=== PATIENT | male | born 1960 | race African-American/Black ===

== ENCOUNTER 2016-05-12 00:33 | Observation (INO) | payer OTHER ==
[2016-05-12] VITALS (7 sets, daily range): BP systolic 102–142; BP diastolic 54–80
[~2016-05-12] VITALS: Ht 182.9 cm; Wt 105.6 kg
[~2016-05-12 00:33] MED LIST: AMLO10TA2 PO; CHLO25TA22 PO; POTA20TA8 PO
[2016-05-12] MEDS ORDERED: CLON0.1T PO ×2 (00:52)
[2016-05-12] MEDS ORDERED: LORA10TA7 PO ×2 (00:52)
[2016-05-12] MEDS ORDERED: AMLO10TA4 PO ×2 (00:55)
[2016-05-12] MEDS ORDERED: LISI40TA PO ×2 (00:55)
[2016-05-12] MEDS ORDERED: ATEN25TA (00:55)
[2016-05-12] MEDS ORDERED: CHLO25TA22 PO ×2 (00:55)
[2016-05-12 01:10] LABS: BASOPHILS % (AUTO) 0 % (0-10); EOSINOPHILS % (AUTO) 1 % (0-10); LYMPHOCYTES # (AUTO) 2.6 X 10^3 (1.0-4.0); LYMPHOCYTES % (AUTO) 43 % (12-44); MEAN CORPUSCULAR HEMOGLOBIN 34 PG (25-34); MEAN CORPUSCULAR HGB CONC 38 G/DL (32-36); MEAN CORPUSCULAR VOLUME 89 FL (80-99); MONOCYTES # (AUTO) 0.5 X 10^3 (0.0-1.0); MONOCYTES % (AUTO) 9 % (0-12); NEUTROPHILS # (AUTO) 2.8 X 10^3 (1.8-7.8); NEUTROPHILS % (AUTO) 47 % (42-75); PLATELET COUNT 365 10^3/uL (130-400); RED BLOOD COUNT 4.03 10^6/uL (4.35-5.85); RED CELL DISTRIBUTION WIDTH 12.9 % (10.0-14.5); WHITE BLOOD COUNT 5.9 10^3/uL (4.3-11.0)
[2016-05-12 01:17] LABS: PROTHROMBIN TIME PATIENT 13.3 SEC (12.2-14.7)
[2016-05-12 01:28] LABS: ALANINE AMINOTRANSFERASE 8 U/L (0-55); ALBUMIN 3.7 G/DL (3.2-4.5); ANION GAP 13 MMOL/L (5-14); ASPARTATE AMINO TRANSFERASE 15 U/L (5-34); BILIRUBIN,TOTAL 0.3 MG/DL (0.1-1.0); BLOOD UREA NITROGEN 18 MG/DL (7-18); BUN/CREATININE RATIO 12; CALCIUM 8.9 MG/DL (8.5-10.1); CARBON DIOXIDE 23 MMOL/L (21-32); CHLORIDE 104 MMOL/L (98-107); CREATININE SERUM 1.46 MG/DL (0.60-1.30); GFR ESTIMATED > 60; GLUCOSE 101 MG/DL (70-105); MAGNESIUM 2.2 MG/DL (1.8-2.4); POTASSIUM 3.3 MMOL/L (3.6-5.0); SODIUM 140 MMOL/L (135-145); TOTAL PROTEIN 7.6 G/DL (6.4-8.2)
[2016-05-12 01:35] LABS: MYOGLOBIN SERUM 59.8 NG/ML (10.0-92.0)
[2016-05-12] MEDS ORDERED: CLOPIDOGREL 75 MG (PLAVIX) TABLET PO ONE (02:30)
[2016-05-12] MEDS ORDERED: ENOXAPARIN 100 MG/1 ML (LOVENOX) SYR SC ONE (02:30)
[2016-05-12] MEDS ORDERED: NS IV 1000 ML 1,000 ML IV ONE (02:57)
[2016-05-12] MEDS ORDERED: KETOROLAC 30 MG/ML VIAL IVP ONE (03:00)
[2016-05-12] MEDS ORDERED: KCL 10 MEQ TAB (MICRO K) PO ONE (03:15)
--- NOTE | 2016-05-12 03:19 | ED Chest Pain ---
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 EMS reported ST changes on the EKG and nitroglycerin paste was applied. Patient reports this improved his pain. He denies any obvious alleviating or exacerbating factors. He is a patient of Dr. Riley who he has seen for history of severe hypertension. He reports Dr. Riley as previously mentioned performing a heart catheterization as part of his workup. Allergies and Home Medications Allergies Coded Allergies: No Known Drug Allergies (Unverified , 01/16/16) Home Medications Amlodipine Besylate 10 Mg Tablet, 10 MG PO DAILY, (Reported) Atenolol 25 Mg Tablet, #30 (Reported) Chlorthalidone 25 Mg Tablet, 25 MG PO, (Reported) Clonidine HCl 0.1 Mg Tablet, #30 (Reported) Lisinopril 40 Mg Tablet, 40 MG PO DAILY, (Reported) Loratadine 10 Mg Tablet, #30 (Reported) Review of Systems Constitutional: no symptoms reported EENTM: No Symptoms Reported Respiratory: No Symptoms Reported Cardiovascular: See HPI Gastrointestinal: No Symptoms Reported Genitourinary: No Symptoms Reported Musculoskeletal: no symptoms reported Skin: no symptoms reported Psychiatric/Neurological: No Symptoms Reported Endocrine: No Symptoms Reported Past Jibzqhv-Bfrblp-Yrogrt Hx Patient Social History Alcohol Use: Regular Use Recreational Drug Use: No Smoking Status: Current Everyday Smoker Type Used: Cigarettes 2nd Hand Smoke Exposure: No Recent Foreign Travel: No Contact w/Someone Who Travel: No Recent Infectious Disease Expo: No Recent Hopitalizations: No Seasonal Allergies Seasonal Allergies: Yes Surgeries HX Surgeries: No Respiratory Hx Respiratory Disorders: Yes Respiratory Disorders: Pneumonia Cardiovascular Hx Cardiac Disorders: Yes Cardiac Disorders: Hypertension Neurological Hx Neurological Disorders: No Reproductive System Hx Reproductive Disorders: No Sexually Transmitted Disease: No HIV/AIDS: No Genitourinary Hx Genitourinary Disorders: No Gastrointestinal Hx Gastrointestinal Disorders: Yes Gastrointestinal Disorders: Gastroesophageal Reflux Musculoskeletal Hx Musculoskeletal Disorders: No Endocrine Hx Endocrine Disorders: No HEENT HX ENT Disorders: No Cancer Hx Cancer: No Psychosocial Hx Psychiatric Problems: No Integumentary HX Skin/Integumentary Disorder: No Blood Transfusions Hx Blood Disorders: No Family Medical History Significant Family History: Heart Disease, Hypertension Physical Exam Vital Signs Vital Sign - Last 12Hours Capillary Refill : Less Than 3 Seconds General Appearance: No Apparent Distress, WD/WN HEENT: PERRL/EOMI, Normal ENT Inspection, Pharynx Normal Neck: Normal Inspection Respiratory: Chest Non Tender, Lungs Clear, Normal Breath Sounds, No Accessory Muscle Use, No Respiratory Distress Cardiovascular: Regular Rate, Rhythm, No Edema, Normal Peripheral Pulses Gastrointestinal: Normal Bowel Sounds, Non Tender, Soft Extremity: Normal Inspection, No Pedal Edema, Calf Tenderness (right calf) Neurologic/Psychiatric: Alert, Oriented x3, No Motor/Sensory Deficits, Normal Mood/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, 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 Skin: Normal Color, Warm/Dry Progress/Results/Core Measures Results/Orders Lab Results Laboratory Tests Test 05/12/16 01:00 Range/Units White Blood Count 5.9 4.3-11.0 10^3/uL Red Blood Count 4.03 L 4.35-5.85 10^6/uL Hemoglobin 13.7 13.3-17.7 G/DL Hematocrit 36 L 40-54 % Mean Corpuscular Volume 89 80-99 FL Mean Corpuscular Hemoglobin 34 25-34 PG Mean Corpuscular Hemoglobin Concent 38 H 32-36 G/DL Red Cell Distribution Width 12.9 10.0-14.5 % Platelet Count 365 130-400 10^3/uL Mean Platelet Volume 9.0 7.4-10.4 FL Neutrophils (%) (Auto) 47 42-75 % Lymphocytes (%) (Auto) 43 12-44 % Monocytes (%) (Auto) 9 0-12 % Eosinophils (%) (Auto) 1 0-10 % Basophils (%) (Auto) 0 0-10 % Neutrophils # (Auto) 2.8 1.8-7.8 X 10^3 Lymphocytes # (Auto) 2.6 1.0-4.0 X 10^3 Monocytes # (Auto) 0.5 0.0-1.0 X 10^3 Eosinophils # (Auto) 0.0 0.0-0.3 10^3/uL Basophils # (Auto) 0.0 0.0-0.1 10^3/uL Prothrombin Time 13.3 12.2-14.7 SEC INR Comment 1.0 0.8-1.4 Activated Partial Thromboplast Time 26 24-35 SEC D-Dimer 1.54 H 0.00-0.49 UG/ML Sodium Level 140 135-145 MMOL/L Potassium Level 3.3 L 3.6-5.0 MMOL/L Chloride Level 104 98-107 MMOL/L Carbon Dioxide Level 23 21-32 MMOL/L Anion Gap 13 5-14 MMOL/L Blood Urea Nitrogen 18 7-18 MG/DL Creatinine 1.46 H 0.60-1.30 MG/DL Estimat Glomerular Filtration Rate > 60 BUN/Creatinine Ratio 12 Glucose Level 101 70-105 MG/DL Calcium Level 8.9 8.5-10.1 MG/DL Magnesium Level 2.2 1.8-2.4 MG/DL Total Bilirubin 0.3 0.1-1.0 MG/DL Aspartate Amino Transf (AST/SGOT) 15 5-34 U/L Alanine Aminotransferase (ALT/SGPT) 8 0-55 U/L Alkaline Phosphatase 74 40-136 U/L Myoglobin 59.8 10.0-92.0 NG/ML Troponin I < 0.30 <0.30 NG/ML Total Protein 7.6 6.4-8.2 G/DL Albumin 3.7 3.2-4.5 G/DL My Orders Orders - KALI DAVIS MD Cbc With Automated Diff (05/12/16 00:43) Magnesium (05/12/16 00:43) Chest 1 View, Ap/Pa Only (05/12/16 00:43) Ekg Tracing (05/12/16 00:43) Cardiac Profile 1 (05/12/16 00:43) Comprehensive Metabolic Panel (05/12/16 00:43) Myoglobin Serum (05/12/16 00:43) Protime With Inr (05/12/16 00:43) Partial Thromboplastin Time (05/12/16 00:43) O2 (05/12/16 00:43) Monitor-Rhythm Ecg Trace Only (05/12/16 00:43) Lipid Panel (05/13/16 06:00) Saline Lock/Iv-Start (05/12/16 00:43) Fibrin Degradation Products (05/12/16 02:29) Clopidogrel Tablet (Plavix Tablet) (05/12/16 02:30) Enoxaparin Injection (Lovenox Injection) (05/12/16 02:30) Ketorolac Injection (Toradol Injection) (05/12/16 03:00) Ns Iv 1000 Ml (Sodium Chloride 0.9%) (05/12/16 02:57) Potassium Chloride (Tablet) (Klor Con Ta (05/12/16 03:15) Medications Given in ED Current Medications Medications Dose Ordered Sig/Milton Route Start Time Stop Time Status Last Admin Dose Admin Clopidogrel Bisulfate 150 mg ONCE ONCE PO 05/12/16 02:30 05/12/16 02:31 DC 05/12/16 02:53 150 MG Enoxaparin Sodium 100 mg ONCE ONCE SC 05/12/16 02:30 05/12/16 02:31 DC 05/12/16 02:53 100 MG Ketorolac Tromethamine 30 mg ONCE ONCE IVP 05/12/16 03:00 05/12/16 03:01 DC 05/12/16 03:04 30 MG Sodium Chloride 1,000 ml @ 0 mls/hr Q0M ONCE IV 05/12/16 02:57 05/12/16 02:58 DC 05/12/16 03:04 0 MLS/HR Vital Signs/I&O Vital Sign - Last 12Hours 05/12/16 05/12/16 00:35 00:35 Temp 98.4 Pulse 57 Resp 16 B/P (MAP) 121/84 Pulse Ox 97 98 O2 Delivery Nasal Cannula Nasal Cannula O2 Flow Rate 2.00 2.00 Blood Pressure Mean: 96 Progress Note : Progress Note Case was reviewed with Dr. Riley who recommended administering Lovenox and Plavix in addition to the aspirin. EKG was obtained and reviewed by him. Tenderness was found in the right calf and d-dimer was therefore ordered. D- dimer was elevated and CT angiogram was ordered prior to transfer to the floor. Results of the CT angiogram were not known at the time of transfer to the floor but patient had already received the Lovenox. Patient had minimal intermittent chest pain during his ER stay. ECG Initial ECG Impression Date: May 12, 2016 Initial ECG Impression Time: 00:40 Initial ECG Rate: 53 Initial ECG Rhythm: Normal Sinus Comment Sinus rhythm with no ST elevation. Borderline ST depression in multiple leads. T-wave inversion in multiple leads. LVH with secondary repolarization abnormality. Diagnostic Imaging Diagonstic Imaging: Xray Plain Films/CT/US/NM/MRI: chest Comments Chest x-ray viewed by me. Report not available. No acute abnormalities appreciated by your physician. Departure Communication Communication Dr. Zafar Communication/Consulting Dr. Riley Impression Impression: Primary Impression: Chest pain Qualified Codes: R07.9 - Chest pain, unspecified Disposition: ADMITTED INPATIENT Condition: Improved Decision to Admit Reason: Admit from ER (General) Decision to Admit/Date: May 12, 2016 Time/Decision to Admit Time: 00:53 Departure-Patient Inst. Referrals: [facility] (PCP) Primary Care Physician KALI DAVIS MD May 12, 2016 03:19
[2016-05-12] MEDS ORDERED: NS 100 ML (IVPB) BAG IV ONE (04:00)
[2016-05-12] MEDS ORDERED: IOHEXOL 350 MG/ML 150 ML (OMNIPAQUE 350) VIAL IV ONE (04:00)
[2016-05-12] MEDS ORDERED: PATIENT MAY USE OWN MEDS, ALL PO SCH (04:45)
[2016-05-12] MEDS ORDERED: PATIENT MAY USE OWN MEDS, ALL MC SCH (04:45)
[2016-05-12] MEDS ORDERED: PANTOPRAZOLE 40 MG (PROTONIX) TAB PO ONE (05:00)
[2016-05-12] MEDS ORDERED: IBUPROFEN 600 MG (MOTRIN) TAB PO PRN (05:15)
[2016-05-12] MEDS ORDERED: CATHETER FLUSH 10 ML SYR IV PRN (05:15)
[2016-05-12] MEDS ORDERED: morphine INJ 4 MG/ML 1 ML (VIAL/SYRINGE) IV PRN (05:15)
[2016-05-12] MEDS ORDERED: NITROGLYCERIN SUBLINGUAL 0.4 MG TAB (NITROSTAT) SL PRN (05:15)
[2016-05-12] MEDS ORDERED: ATEN50TA PO ×2 (05:22)
[2016-05-12] MEDS ORDERED: CATHETER FLUSH 10 ML SYR IV SCH (06:00)
[2016-05-12] MEDS ORDERED: PANTOPRAZOLE 40 MG (PROTONIX) TAB PO SCH (07:00)
[2016-05-12] MEDS ORDERED: CHLORTHALIDONE 25 MG (HYGROTON) TABLET PO SCH ×2 (07:00→09:00)
--- NOTE | 2016-05-12 07:37 | Diagnostic Imaging Report ---
PROCEDURE: CT angiography of the chest with contrast. TECHNIQUE: Multiple contiguous axial images were obtained through the chest after uneventful bolus administration of intravenous contrast. Reconstructed CTA MIP acquisitions were also performed. INDICATION: Acute onset chest pain. FINDINGS: Portions of this exam are degraded due to respiratory motion. The thoracic aorta is normal in caliber without evidence of dissection. No definitive filling defects are seen within the pulmonary arteries to suggest pulmonary embolism. There are no discrete pulmonary nodules, masses or infiltrates. There is no pleural or pericardial fluid. There is no pneumothorax. There is no pathologically enlarged adenopathy in the chest. The visualized intra-abdominal structures are unremarkable. There are mild degenerative changes in the spine. IMPRESSION: Portions of the exam are mildly degraded due to motion. Peripheral embolism in these regions cannot be entirely excluded. There is, however, no evidence of a large central filling defect to suggest pulmonary embolism. No evidence of dissection. No acute abnormality in the chest Dictated by: Dictated on workstation # [id number]
[2016-05-12 08:05] LABS: ANION GAP 9 MMOL/L (5-14); BLOOD UREA NITROGEN 19 MG/DL (7-18); BUN/CREATININE RATIO 12; CALCIUM 8.4 MG/DL (8.5-10.1); CARBON DIOXIDE 24 MMOL/L (21-32); CHLORIDE 107 MMOL/L (98-107); CHOLESTEROL 128 MG/DL (< 200); CREATININE SERUM 1.58 MG/DL (0.60-1.30); DIRECT LDL 74 MG/DL (1-129); GFR ESTIMATED 56; GLUCOSE 98 MG/DL (70-105); POTASSIUM 3.7 MMOL/L (3.6-5.0); SODIUM 140 MMOL/L (135-145); TRIGLYCERIDES 231 MG/DL (<150); VLDL CHOLESTEROL 46 MG/DL (5-40)
[2016-05-12 08:11] LABS: TROPONIN I < 0.30 NG/ML (<0.30)
--- NOTE | 2016-05-12 08:41 | Diagnostic Imaging Report ---
INDICATION: Chest pain. COMPARISON: January 17, 2016. TECHNIQUE: Single frontal radiograph of the chest dated May 12, 2016. FINDINGS: The cardiac silhouette is within normal limits. No significant pulmonary vascular congestion. The lungs are clear. No pleural effusion. No pneumothorax. No acute osseous abnormality. IMPRESSION: No acute cardiopulmonary abnormality. Dictated by: Dictated on workstation # [id number]
[2016-05-12] MEDS ORDERED: ATENOLOL 50 MG (TENORMIN) TAB PO SCH ×2 (09:00)
[2016-05-12] MEDS ORDERED: amLODIPine 10 MG (NORVASC) TAB PO SCH ×2 (09:00)
[2016-05-12] MEDS ORDERED: ASPIRIN E.C. 325 MG (ECOTRIN) TABLET PO SCH (09:00)
[2016-05-12] MEDS ORDERED: LISINOPRIL 40MG TABLET PO SCH (09:00)
[2016-05-12] MEDS ORDERED: NON-FORMULARY MEDICATION 1 EA EA (Lisinopril 40 MG) PO SCH (09:00)
--- NOTE | 2016-05-12 11:02 | Diagnostic Imaging Report ---
PROCEDURE: US right lower extremity venous. TECHNIQUE: Multiple real-time grayscale images were obtained over the right lower extremity in various projections. Additional duplex Doppler and color Doppler images were also obtained. INDICATION: Right leg pain and elevated d-dimer. FINDINGS: The right common femoral, superficial femoral and popliteal veins demonstrate normal response to compression, augmentation, and Valsalva. There are no right lower extremity fluid collections or masses. IMPRESSION: No evidence of deep vein thrombosis in the right lower extremity. Dictated by: Dictated on workstation # [id number]
--- NOTE | 2016-05-12 13:35 | Consultation-Cardiology ---
HPI-Cardiology Cardiology Consultation: Date of Consultation 05/12/16 Date of Admission Attending Physician Anaid Zafar MD Admitting Physician O[place],[facility] Consulting Physician Rehan MONTAÑO MD HPI: Chief Complaint: chest pain this is a 55-year-old gentleman with history of hypertension, active smoking, premature family history of coronary artery disease. He presents with complaint of substernal chest pain which he describes as chest tightness for 15 minutes. No radiation. No associated shortness of breath. No exacerbating or relieving factors. Significant improvement with Nitropaste. Review of Systems-Cardiology Review of Systems Constitutional: No As described under HPI, No no symptoms reported, No chills, No fever, No lightheadedness, No malaise, No tiredness, No weight loss, No weight gain, No other Eyes: No As described under HPI, No no symptoms reported, No blindness, No blurred vision, No contact lenses, No drainage, No decreased acuity, No foreign body sensation, No glasses, No inflammation, No pain, No photophobia, No previous injury, No shadows, No tunnel vision, No other, No vision change Ears/Nose/Throat: No As described under HPI, No no symptoms reported, No chronic hearing loss, No epistaxis, No ear discharge, No ear pain, No loose teeth, No mouth pain, No mouth swelling, No nasal drainage, No nose pain, No recent hearing loss, No throat pain, No throat swelling, No ulcerations, No other Respiratory: No no symptoms reported, No As described under HPI, No cough, No orthopnea, No shortness of breath, No SOB with excertion, No SOB at rest, No stridor, No wheezing, No other Cardiovascular: No no symptoms reported, No As described under HPI, chest pain , No edema, No irregular heart rate, No lightheadedness, No palpitations, No syncope, No other Gastrointestinal: No no symptoms reported, No As described under HPI, No abdomen distended, No abdominal pain, No blood streaked bowels, No constipation , No diarrhea, No difficulty swallowing, No nausea, No poor appetite, No poor fluid intake, No rectal bleeding, No vomiting, No other, No nausea/vomiting/ diarrhea, No stool coloration changes Genitourinary: No no symptoms reported, No As described under HPI, No burning, No dysuria, No discharge, No frequency, No flank pain, No hematuria, No incontinence, No pain, No urgency, No other, No urine frequency changes, No urine coloration changes Musculoskeletal: No no symptoms reported, No As describe under HPI, No back pain, No gout, No joint pain, No joint swelling, No muscle pain, No muscle stiffness, No neck pain, No other Skin: No no symptoms reported, No As described under HPI, No change in color, No change in hair/nails, No dryness, No lesions, No lumps, No rash, No other, No skin related problems, No ulcerations, No rash on exposed areas, No ulcerations on exposed areas Psychiatric/Neurological: No As described under HPI, No anxiety, No depression , No emotional problems, No focal weakness, No headache, No no symptoms reported , No numbness, No other, No pre-existing deficit, No seizure, No syncope, No tingling, No tremors, No weakness QAN-Isajby-Urgyzn Hx Patient Social History Alcohol Use: Occasionally Uses Recreational Drug Use: No Smoking Status: Current Everyday Smoker Type Used: Cigarettes 2nd Hand Smoke Exposure: No Recent Foreign Travel: No Recent Infectious Disease Expo: No Hospitalization with Isolation: Denies Physical Abuse Screen: No Sexual Abuse: No Past Medical History PMH As described under Assessment. Family Medical History Family History: Alcoholism 19 FATHER G8 BROTHER Diabetes mellitus 19 MOTHER G8 BROTHER FH: liver disease 19 FATHER G8 BROTHER G8 BROTHER Hypertension 19 MOTHER G8 SISTER Myocardial infarction 19 FATHER Allergies and Home Medications Allergies Coded Allergies: No Known Drug Allergies (Unverified , 01/16/16) Home Medications Amlodipine Besylate 10 Mg Tablet, 10 MG PO DAILY, (Reported) Atenolol 50 Mg Tablet, 50 MG PO BID, (Reported) Chlorthalidone 25 Mg Tablet, 25 MG PO, (Reported) Clonidine HCl 0.1 Mg Tablet, #30 (Reported) Lisinopril 40 Mg Tablet, 40 MG PO DAILY, (Reported) Loratadine 10 Mg Tablet, #30 (Reported) Physical Exam-Cardiology Physical Exam Vital Signs/I&O Vital Sign - Last 12Hours 05/12/16 05/12/16 05/12/16 05/12/16 03:30 03:58 04:11 04:15 Pulse 47 59 51 Resp 17 B/P (MAP) 120/80 116/68 Pulse Ox 98 96 O2 Delivery Room Air O2 Flow Rate 2.00 05/12/16 05/12/16 05/12/16 05/12/16 04:45 05:00 06:00 07:00 Pulse 53 50 54 B/P (MAP) 102/54 111/68 Pulse Ox 96 95 97 O2 Delivery Room Air Room Air Room Air 05/12/16 05/12/16 05/12/16 05/12/16 07:00 07:55 07:55 07:55 Temp 96.8 Pulse 53 54 Resp 16 B/P (MAP) 126/80 120/73 Pulse Ox 92 98 98 98 O2 Delivery Room Air Room Air Room Air 05/12/16 05/12/16 11:13 11:15 Temp 97.1 Pulse 55 Resp 12 B/P (MAP) 142/78 Pulse Ox 99 99 O2 Delivery Room Air Capillary Refill : Less Than 3 Seconds Constitutional: No appears stated age, No AAO x 3, No apparent distress, No PERRL, No well-developed, No well-nourished, No other HEENT: No PERRL, No normal ENT inspection, No TMs normal, No pharynx normal, No scleral icterus (R), No scleral icterus (L), No pale conjunctivae (R), No pale conjunctivae (L), No photophobia, No TM abnormal (R), No TM abnormal (L), No pharyngeal erythema, No tonsillar exudate, No other, No discharge, No EOMI, No hearing is well preserved, No hard of hearing, No oral hygience is good, No ulceration, No xanthelasmas are seen Neck: No non-tender, No full range of motion, No supple, No normal inspection, No carotid bruit, No limited range of motion, No lymphadenopathy (R), No lymphadenopathy (L), No tender lateral, No tender midline, No thyromegaly, No other, No carotid pulses are 2 + bilaterally, No with good upstrokes Respiratory: No accessory muscle use, No respiratory distress, No chest tender , No chest expansion is symmetric, No chest is bilaterally symmetric, No lungs clear to percussion, No lungs clear to auscultation, No crackles, No rhonchi, No rales, No stridor, No wheezing, No pleural rub, No other Cardiovascular: No regular rate-rhythm, No irregularly irregular, No extra beats, No parasternal heave is noted, No JVD, No edema, No bradycardia, No tachycardia, No point of maximal impulse, No cardiac thrills are palpable, No S1 and S2, No gallop/S3, No gallop/S4, No diastolic murmur, No systolic murmur, No friction rub, No click, No other Gastrointestinal: No tender, No soft, No round, No distended, No pulsatile mass , No organomegaly, No guarding, No rebound, No tenderness, No hernia, No mass, No audible bowel sounds, No abnormal bowel sounds, No abdominal bruits, No spleenomegaly, No other Rectal: deferred Extremities: No normal range of motion, No non-tender, No normal inspection, No pedal edema, No calf tenderness, No normal capillary refill, No pelvis stable , No calf tenderness, No inflammation, No pedal edema, No slow capillary refill , No swelling, No other, No abrasion, No clubbing, No cyanosis, No ecchymosis, No laceration, No no lower extremity edema bilateral, No significant edema, No tenderness, No wound Neurologic/Psychiatric: No blood bank coordinator II-XII nml as tested, No no motor/sensory deficits, No alert, No normal mood/affect, No oriented x 3, No abnormal cerebellar tests, No abnormal blood bank coordinator II-XII, No abnormal gait, No aphasia, No EOM palsy, No facial droop, No motor weakness, No sensory deficit, No depressed affect, No disoriented x 3, No other, No grossly intact, No power is 5/5 both on sides Skin: No normal color, No warm/dry, No cyanosis, No cool, No diaphoresis, No damp, No ecchymosis, No jaundice, No mottled, No pallor, No rash, No tattoos/ piercings, No ulcerations, No rash on exposed areas, No ulcerations on exposed areas, No other Data Review Labs Laboratory Tests 05/12/16 01:00: White Blood Count 5.9, Red Blood Count 4.03L, Hemoglobin 13.7, Hematocrit 36L, Mean Corpuscular Volume 89, Mean Corpuscular Hemoglobin 34, Mean Corpuscular Hemoglobin Concent 38H, Red Cell Distribution Width 12.9, Platelet Count 365, Mean Platelet Volume 9.0, Neutrophils (%) (Auto) 47, Lymphocytes (%) (Auto) 43, Monocytes (%) (Auto) 9, Eosinophils (%) (Auto) 1, Basophils (%) (Auto) 0, Neutrophils # (Auto) 2.8, Lymphocytes # (Auto) 2.6, Monocytes # (Auto) 0.5, Eosinophils # (Auto) 0.0, Basophils # (Auto) 0.0, Prothrombin Time 13.3, INR Comment 1.0, Activated Partial Thromboplast Time 26, D-Dimer 1.54H, Sodium Level 140, Potassium Level 3.3L, Chloride Level 104, Carbon Dioxide Level 23, Anion Gap 13, Blood Urea Nitrogen 18, Creatinine 1.46H, Estimat Glomerular Filtration Rate > 60, BUN/Creatinine Ratio 12, Glucose Level 101, Calcium Level 8.9, Magnesium Level 2.2, Total Bilirubin 0.3, Aspartate Amino Transf (AST/SGOT ) 15, Alanine Aminotransferase (ALT/SGPT) 8, Alkaline Phosphatase 74, Myoglobin 59.8, Troponin I < 0.30, Total Protein 7.6, Albumin 3.7 05/12/16 07:30: Sodium Level 140, Potassium Level 3.7, Chloride Level 107, Carbon Dioxide Level 24, Anion Gap 9, Blood Urea Nitrogen 19H, Creatinine 1.58H, Estimat Glomerular Filtration Rate 56, BUN/Creatinine Ratio 12, Glucose Level 98, Calcium Level 8.4L, Troponin I < 0.30, Triglycerides Level 231H, Cholesterol Level 128, LDL Cholesterol Direct 74, VLDL Cholesterol 46H, HDL Cholesterol 20L ECG Impression ECG Initial ECG Rhythm: Normal Sinus Comment ST-T wave abnormalities consistent with LVH with strain pattern. Acute coronary syndrome cannot be ruled out. A/P-Cardiology Assessment/Admission Diagnosis 1. Chest pain, 2. Active smoking, 3. Hypertension, 4. Renal insufficiency, 5. Right carotid bruit. Plan 1. Chest pain: patient has significant risk factors for coronary artery disease. These include active smoking, hypertension, premature coronary artery disease in the family. EKG shows sinus rhythm with ST-T wave abnormalities consistent with LVH with strain pattern however acute coronary syndrome cannot be ruled out. Serial troponin is negative. D-dimer was mildly elevated. CT angiography did not reveal any significant pulmonary embolism. I have spoken at length with the patient and family and recommended an inpatient nuclear stress test. However the patient does not want to stay in the hospital anymore. This will have to be AGAINST MEDICAL ADVICE. We will still give him aspirin, Plavix, amlodipine, statin. 2. Active smoking: strongly recommended to quit. 3. Hypertension: continue amlodipine. 4. Renal insufficiency: recommend nephrology follow-up. 5. Right carotid bruit :need bilateral carotid ultrasound. 6. Bradycardia: Hold beta lillie. Heart rate at this moment is 47 BPM. Patient is not having any symptoms of dizziness or lightheadedness. I have requested our RN to give him my office information. We will also schedule nuclear stress testing. Thank you for your consultation. Please call me if you have any questions. Lizzie Montaño MD, FACP, FACC, FSCAI, FHRS, CCDS Interventional Cardiology Cardiac Electrophysiology Vascular Medicine and Endovascular Interventions Clinical Quality Measures AMI/AHF: ASA po Prior to arrival: Yes DVT/VTE Risk/Contraindication: Risk Factor Score Per Nursin RFS Level Per Nursing on Admit: 3=High Rehan MONTAÑO MD May 12, 2016 13:35
[2016-05-12] MEDS ORDERED: ATOR40TA PO ×2 (14:46)
[2016-05-12] MEDS ORDERED: CLOP75TA69 PO ×2 (14:46)
[2016-05-12] MEDS ORDERED: ASPI-999 PO ×2 (14:46)
--- NOTE | 2016-05-12 15:49 | Short Stay Summary ---
HPI History of Present Illness: Patient admitted for chest pain with significant cardiac history. Follows with Dr riley as outpatient. Patient stated that pain improved after nitro paste placed. States that the pain was mid chest and constant with a heaviness. + shortness of breath with chest pain. Denies palpations or abdominal pain. Pain did not radiate. He has had similar episodes in the past. Cardiology was called to the ER for concerns of ST elevation. He was evaluated by Dr Riley who stated that it was not ST elevation and patient was not taken emergently to labor expediter. Seen in the AM and patient has not had reoccurrence of chest pain. Seen by Dr Montaño in the AM who recommended inpatient stress on Saturday. Patient did not want to stay and decided to leave AMA. Source: patient, family (), RN/MD, old records Exam Limitations: no limitations Date seen by provider: May 12, 2016 Attending Physician Fransisco Mcdowell [place] [facility] [place] Date of Admission May 12, 2016 at 03:12 Home Medications Home Medications Reviewed patient Home Medication Reconciliation Form Allergies Coded Allergies: No Known Drug Allergies (Unverified , 01/16/16) PPL-Vzacua-Wtjuqu Hx Patient Social History Living Status: with in house Alcohol Use: Occasionally Uses Recreational Drug Use: No Smoking Status: Current Everyday Smoker Type Used: Cigarettes 2nd Hand Smoke Exposure: No Recent Foreign Travel: No Contact w/other who traveled: No Recent Hopitalizations: No Recent Infectious Disease Expo: No Physical Abuse Screen: No Sexual Abuse: No Past Medical History Uncontrolled HTN Family Medical History Significant Family History: Heart Disease, Hypertension Family History: Alcoholism 19 FATHER G8 BROTHER Diabetes mellitus 19 MOTHER G8 BROTHER FH: liver disease 19 FATHER G8 BROTHER G8 BROTHER Hypertension 19 MOTHER G8 SISTER Myocardial infarction 19 FATHER Review of Systems (CH[facility]) Constitutional: No chills, dizziness, No fever, No weight gain EENTM: no symptoms reported Respiratory: No cough, dyspnea on exertion, No orthopnea, No short of breath, No wheezing Cardiovascular: chest pain, No edema, No palpitations Gastrointestinal: no symptoms reported, No abdominal pain, No constipation, No diarrhea, No nausea, No vomiting Genitourinary: no symptoms reported, No dysuria, No frequency, No hematuria Musculoskeletal: no symptoms reported, No back pain, No joint pain, No muscle pain Skin: no symptoms reported, No pruritus, No rash Psychiatric/Neurological: No Symptoms Reported, Denies Numbness, Denies Weakness Reviewed Test Results Reviewed Test Results Lab Laboratory Tests Test 05/12/16 01:00 05/12/16 07:30 Range/Units White Blood Count 5.9 4.3-11.0 10^3/uL Red Blood Count 4.03 L 4.35-5.85 10^6/uL Hemoglobin 13.7 13.3-17.7 G/DL Hematocrit 36 L 40-54 % Mean Corpuscular Volume 89 80-99 FL Mean Corpuscular Hemoglobin 34 25-34 PG Mean Corpuscular Hemoglobin Concent 38 H 32-36 G/DL Red Cell Distribution Width 12.9 10.0-14.5 % Platelet Count 365 130-400 10^3/uL Mean Platelet Volume 9.0 7.4-10.4 FL Neutrophils (%) (Auto) 47 42-75 % Lymphocytes (%) (Auto) 43 12-44 % Monocytes (%) (Auto) 9 0-12 % Eosinophils (%) (Auto) 1 0-10 % Basophils (%) (Auto) 0 0-10 % Neutrophils # (Auto) 2.8 1.8-7.8 X 10^3 Lymphocytes # (Auto) 2.6 1.0-4.0 X 10^3 Monocytes # (Auto) 0.5 0.0-1.0 X 10^3 Eosinophils # (Auto) 0.0 0.0-0.3 10^3/uL Basophils # (Auto) 0.0 0.0-0.1 10^3/uL Prothrombin Time 13.3 12.2-14.7 SEC INR Comment 1.0 0.8-1.4 Activated Partial Thromboplast Time 26 24-35 SEC D-Dimer 1.54 H 0.00-0.49 UG/ML Sodium Level 140 140 135-145 MMOL/L Potassium Level 3.3 L 3.7 3.6-5.0 MMOL/L Chloride Level 104 107 98-107 MMOL/L Carbon Dioxide Level 23 24 21-32 MMOL/L Anion Gap 13 9 5-14 MMOL/L Blood Urea Nitrogen 18 19 H 7-18 MG/DL Creatinine 1.46 H 1.58 H 0.60-1.30 MG/DL Estimat Glomerular Filtration Rate > 60 56 BUN/Creatinine Ratio 12 12 Glucose Level 101 98 70-105 MG/DL Calcium Level 8.9 8.4 L 8.5-10.1 MG/DL Magnesium Level 2.2 1.8-2.4 MG/DL Total Bilirubin 0.3 0.1-1.0 MG/DL Aspartate Amino Transf (AST/SGOT) 15 5-34 U/L Alanine Aminotransferase (ALT/SGPT) 8 0-55 U/L Alkaline Phosphatase 74 40-136 U/L Myoglobin 59.8 10.0-92.0 NG/ML Troponin I < 0.30 < 0.30 <0.30 NG/ML Total Protein 7.6 6.4-8.2 G/DL Albumin 3.7 3.2-4.5 G/DL Triglycerides Level 231 H <150 MG/DL Cholesterol Level 128 < 200 MG/DL LDL Cholesterol Direct 74 1-129 MG/DL VLDL Cholesterol 46 H 5-40 MG/DL HDL Cholesterol 20 L 40-60 MG/DL Radiology Date of Exam: 05/12/16 US VENOUS LOWER EXT RT PROCEDURE: US right lower extremity venous. TECHNIQUE: Multiple real-time grayscale images were obtained over the right lower extremity in various projections. Additional duplex Doppler and color Doppler images were also obtained. INDICATION: Right leg pain and elevated d-dimer. FINDINGS: The right common femoral, superficial femoral and popliteal veins demonstrate normal response to compression, augmentation, and Valsalva. There are no right lower extremity fluid collections or masses. IMPRESSION: No evidence of deep vein thrombosis in the right lower extremity. Date of Exam: 05/12/16 CT ANGIO CHEST W PROCEDURE: CT angiography of the chest with contrast. TECHNIQUE: Multiple contiguous axial images were obtained through the chest after uneventful bolus administration of intravenous contrast. Reconstructed CTA MIP acquisitions were also performed. INDICATION: Acute onset chest pain. FINDINGS: Portions of this exam are degraded due to respiratory motion. The thoracic aorta is normal in caliber without evidence of dissection. No definitive filling defects are seen within the pulmonary arteries to suggest pulmonary embolism. There are no discrete pulmonary nodules, masses or infiltrates. There is no pleural or pericardial fluid. There is no pneumothorax. There is no pathologically enlarged adenopathy in the chest. The visualized intra-abdominal structures are unremarkable. There are mild degenerative changes in the spine. IMPRESSION: Portions of the exam are mildly degraded due to motion. Peripheral embolism in these regions cannot be entirely excluded. There is, however, no evidence of a large central filling defect to suggest pulmonary embolism. No evidence of dissection. No acute abnormality in the chest Date of Exam: 05/12/16 CHEST 1 VIEW, AP/PA ONLY INDICATION: Chest pain. COMPARISON: January 17, 2016. TECHNIQUE: Single frontal radiograph of the chest dated May 12, 2016. FINDINGS: The cardiac silhouette is within normal limits. No significant pulmonary vascular congestion. The lungs are clear. No pleural effusion. No pneumothorax. No acute osseous abnormality. IMPRESSION: No acute cardiopulmonary abnormality. Physical Exam-([facility]) Physical Exam Vital Signs VS - Last 72 Hours, by Label 05/12/16 05/12/16 05/12/16 05/12/16 00:35 00:35 03:30 03:58 Temp 98.4 Pulse 57 47 Resp 16 17 B/P (MAP) 121/84 120/80 Pulse Ox 97 98 98 O2 Delivery Nasal Cannula Nasal Cannula O2 Flow Rate 2.00 2.00 2.00 05/12/16 05/12/16 05/12/16 05/12/16 04:11 04:15 04:45 05:00 Pulse 59 51 53 B/P (MAP) 116/68 102/54 Pulse Ox 96 96 95 O2 Delivery Room Air Room Air Room Air 05/12/16 05/12/16 05/12/16 05/12/16 06:00 07:00 07:00 07:55 Pulse 50 54 53 B/P (MAP) 111/68 126/80 Pulse Ox 97 92 98 O2 Delivery Room Air Room Air Room Air 05/12/16 05/12/16 05/12/16 05/12/16 07:55 07:55 11:13 11:15 Temp 96.8 97.1 Pulse 54 55 Resp 16 12 B/P (MAP) 120/73 142/78 Pulse Ox 98 98 99 99 O2 Delivery Room Air Room Air Capillary Refill : Less Than 3 Seconds General Appearance: WD/WN, no apparent distress HEENT: PERRL/EOMI Neck: non-tender, full range of motion, supple, normal inspection Respiratory: chest non-tender, lungs clear, normal breath sounds, no respiratory distress, no accessory muscle use Cardiovascular: normal peripheral pulses, regular rate, rhythm, no edema, no gallop, no JVD, no murmur Gastrointestinal: normal bowel sounds, non tender, soft, no organomegaly, no pulsatile mass Extremities: normal range of motion, non-tender, normal inspection, no pedal edema, no calf tenderness, normal capillary refill Neurologic/Psychiatric: metal tank erector II-XII nml as tested, no motor/sensory deficits, alert, normal mood/affect, oriented x 3 Skin: normal color, warm/dry Lymphatic: no adenopathy Short Stay Diagnosis Discharge Diagnosis-Short Stay Admission Diagnosis Acute Chest pain Elevated D-Dimer Right lower extremity Swelling HTN Final Discharge Diagnosis See Above Conclusion Plan 55 yo M that was admitted for acute chest pain. Seen by cardiology who recommended inpatient stress test with possible cath. Patient did not want to have these procedures done and decided to leave AMA in the AM after being seen by Dr Montaño. Recommended to patient to have close follow up with his Labeling Associate Dr Riley. Clinical Quality Measures AMI/AHF: ASA po Prior to arrival: Yes DVT/VTE Risk/Contraindication: Risk Factor Score Per Nursin RFS Level Per Nursing on Admit: 3=High Copy Copies To 1: FRANSISCO MCDOWELL MD, HOLLY R MD May 12, 2016 15:49
[2016-05-12] MEDS ORDERED: cloNIDine 0.1 MG (CATAPRES) TAB PO SCH ×2 (21:00)
--- OUTSIDE RECORDS SUMMARY | 2016-06-05 09:07 | XMS REPORT ---
Author Author ROBERT PLASCENCIA [facility] Address [address] [place] [address] Care Team Providers Care Concrete Puddler Name Role Phone ROBERT PLASCENCIA Unavailable PROBLEMS Type Condition ICD9-CM Code [id number] Code Onset Dates Condition Status SNOMED Code Problem Essential hypertension I10 Active 47556653 Assessment Essential hypertension I10 Jan, Active 11946440 ALLERGIES Substance Reaction Event Type Date Status N.K.D.A. Unknown Non Drug Allergy Jan, Unknown SOCIAL HISTORY No smoking Hx information available PLAN OF CARE VITAL SIGNS Height 72 in 2016-01-23 Weight 227.0 lbs 2016-01-23 Heart Rate 68 bpm 2016-01-23 Respiratory Rate 18 2016-01-23 BMI 30.78 kg/m2 2016-01-23 Blood pressure systolic 162 mmHg 2016-01-23 Blood pressure diastolic 88 mmHg 2016-01-23 MEDICATIONS Medication Instructions Dosage Frequency Start Date End Date Duration Status Chlorthalidone 25 MG Orally Once a day 1 tablet in the morning 24h Active Atenolol 25 MG Orally Once a day 1 tablet 24h Jan, Active Amlodipine Besylate 10 MG Orally Once a day 1 tablet 24h Active Potassium Chloride 20 MEQ Orally Once a day 1 packet with food 24h Active RESULTS No Results PROCEDURES Procedure Date Ordered Related Diagnosis Body Site Office Visit, Est Pt., Level 3 Jan 23, 2016 IMMUNIZATIONS No Known Immunizations
--- OUTSIDE RECORDS SUMMARY | 2016-06-05 09:07 | XMS REPORT | Continuity of Care Document ---
Author Author [facility] Organization [facility] Address Unknown Phone Unavailable Allergies Medications Problems Date Dx Coded Attending Type Code Diagnosis Diagnosed By 09/20/2014 SPENCER CHAWLA V71.09 NO DIAGNOSIS OR CONDITION ON AXIS I Procedures Code Description Performed By Performed On [facility] CASE MANAGEMENT 09/20/2014 Results Encounters ACCT No. Visit Date/Time Discharge Status Pt. Type Provider Facility Loc./Unit Complaint [id number] 09/20/2014 16:27:00 09/20/2014 23: 59:59 CLS Outpatient SPENCER CHAWLA
--- OUTSIDE RECORDS SUMMARY | 2016-06-05 09:07 | XMS REPORT ---
Author Author ROBERT PLASCENCIA [facility] eClinicalWorks Address Unknown Phone Unavailable Care Team Providers Care Outsole Scheduler Name Role Phone ROBERT PLASCENCIA CP Unavailable Allergies, Adverse Reactions, Alerts Substance Reaction Event Type N.K.D.A. Info Not Available Non Drug Allergy Problems No Known Problems Medications Medication Code System Code Instructions Start Date End Date Status Dosage Clonidine HCl [facility] [address]-73 0.1 MG Orally twice a day 1 tablet at bedtime Results No Known Results Summary Purpose eClinicalWorks Submission
--- OUTSIDE RECORDS SUMMARY | 2016-06-05 09:07 | XMS REPORT ---
Author Author ROBERT PLASCENCIA Organization [facility] [place] Address [address] [place] [address] Care Team Providers Care Mender [employer]s Name Role Phone ROBERT PLASCENCIA Unavailable PROBLEMS Type Condition ICD9-CM Code XGZ44-CK Code Onset Dates Condition Status SNOMED Code Assessment Hypertensive crisis I16.9 Jan, Active 711432137 Assessment Encounter to establish care Z76.89 Jan, Active [id number] ALLERGIES Substance Reaction Event Type Date Status N.K.D.A. Unknown Non Drug Allergy Jan, Unknown SOCIAL HISTORY No smoking Hx information available PLAN OF CARE Activity Details Future/Pending Procedure EKG, TRACING (IN-HOUSE) prn,Reason: VITAL SIGNS Height 72 in 2016-01-16 Weight 235 lbs 2016-01-16 Heart Rate 72 bpm 2016-01-16 Respiratory Rate 16 2016-01-16 BMI 31.87 kg/m2 2016-01-16 Blood pressure systolic 240 mmHg 2016-01-16 Blood pressure diastolic 130 mmHg 2016-01-16 MEDICATIONS Medication Instructions Dosage Frequency Start Date End Date Duration Status Uaprlcmc-AOR-2 0.1 MG/24HR 1 patch to skin Active Cholecalciferol 2000 UNIT Orally Once a day 1 capsule 24h Active Cyanocobalamin 1000 MCG Orally Once a day 1 tablet 24h Active Tenormin 25 MG Orally Once a day 1 tablet 24h Active Aspirin Adult Low Dose 81 MG Orally Once a day 1 tablet 24h Active Lipitor 40 MG Orally Once a day 1 tablet 24h Active Amlodipine Besylate 10 MG Orally Once a day 1 tablet 24h Active Clonidine HCl 0.1 MG Orally twice a day 1 tablet at bedtime 12h Active Tramadol HCl 50 MG Orally every 6 hrs 1 tablet as needed 6h Active Hydrochlorothiazide 25 MG Orally Once a day 1 tablet 24h Active RESULTS No Results PROCEDURES Procedure Date Ordered Related Diagnosis Body Site ELECTROCARDIOGRAM, TRACING Jan 16, 2016 Office Visit, New Pt., Level 3 Jan 16, 2016 No Charge Jan 16, 2016 IMMUNIZATIONS No Known Immunizations
--- OUTSIDE RECORDS SUMMARY | 2016-06-05 09:11 | XMS REPORT | Continuity of Care Document ---
Author Author [facility] Organization [facility] Address Unknown Phone Unavailable Allergies Medications Problems Date Dx Coded Attending Type Code Diagnosis Diagnosed By 09/20/2014 SPENCER CHAWLA V71.09 NO DIAGNOSIS OR CONDITION ON AXIS I Procedures Code Description Performed By Performed On [facility] CASE MANAGEMENT 09/20/2014 Results Encounters ACCT No. Visit Date/Time Discharge Status Pt. Type Provider Facility Loc./Unit Complaint [id number] 09/20/2014 16:27:00 09/20/2014 23: 59:59 CLS Outpatient SPENCER CHAWLA
== END 2016-05-12 14:43 | disposition left against medical advice (07) ==
LOC: DELPENDDIS → EDUNIT# 00:33 → ER 00:35 → ICU 03:12 → UNDOADMOB 03:12 → ICU 03:40 → UNDODISOB 15:30
PROVIDERS: ADMIT Family Medicine; ATTEND Family Medicine
DX: R07.9 Chest pain, unspecified (principal); F17.210 Nicotine dependence, cigarettes, uncomplicated; I10 Essential (primary) hypertension; N28.9 Disorder of kidney and ureter, unspecified; R09.89 Other specified symptoms and signs involving the circulatory and respiratory systems; R00.1 Bradycardia, unspecified; R79.1 Abnormal coagulation profile; R22.41 Localized swelling, mass and lump, right lower limb
CPT/HCPCS: 36415; 71010; 71275; 80048; 80053; 80061; 83735; 83874; 84484; 85025; 85379; 85610; 85730; 93005; 93041; 96361; 96372; 96374; G0378

== ENCOUNTER → 2016-05-14 | Outpatient (CLI) | payer OTHER ==
[~2016-05-14] VITALS: Ht 182.9 cm; Wt 105.2 kg
[~2016-05-14] MED LIST changes: +AMLO10TA4 PO; +ASPI-999 PO; +ATEN25TA; +ATEN50TA PO; +ATOR40TA PO; +CATHETER FLUSH 10 ML SYR IV PRN; +CLON0.1T PO; +CLOP75TA69 PO; +LISI40TA PO; +LORA10TA7 PO; +POTA-51 PO; +REGADENOSON 0.4 MG/5 ML SYR (LEXISCAN) IV ONE
[2016-05-14 12:49] VITALS: BP 149/85
[2016-05-14 13:02] VITALS: BP 158/97
--- NOTE | 2016-05-16 07:38 | STRESS TEST ---
PROCEDURE PHYSICIAN: SCARLETT MONTAÑO DATE OF PROCEDURE: 05/14/2016 PHARMACOLOGICAL STRESS TEST REPORT: REFERRING PHYSICIAN: Dr. Christel Fernandez. ATTENDING PHYSICIAN: Dr. Billy Montaño. DIAGNOSES: Chest pain. PROCEDURE: The patient was brought to the stress lab after informed consent was taken. Lexiscan stress test was administered according to the protocol. Low-grade exercise were performed with Lexiscan administration. 0.4 mg of Lexiscan was given intravenously. Baseline electrocardiogram showed sinus rhythm with no ST-T wave abnormalities. Baseline electrocardiogram showed sinus rhythm with downsloping ST segments and T wave inversions. Resting heart rate was 54 bpm and blood pressure was 149/85 mmHg. Maximum heart rate was 89 bpm and blood pressure was 158/97 mmHg. The patient did not have any stressed chest pain or arrhythmias during the stress test. The patient did not have any significant worsening of the baseline ST depression and T wave inversion. Stress test was stopped secondary to completion of protocol. Radionuclide isotope was given at peak vasodilatation. 10.64 mCi of Myoview were given at rest for rest imaging and 29.4 mCi of Myoview were given for stress imaging. TID 0.96. Ejection fraction was 68%. There is no wall motion abnormalities on gaited images. There is moderate sized reversible inferior defect. This defect is seen in the non-attenuated corrected images. Sum stress score is 4. SRS 0. SDS is 4. CONCLUSION: 1. Pharmacological stress test was negative for ischemia. 2. There is a moderate sized reversible inferior defect noted on non-attenuated corrected images. This may suggest ischemia in the RCA territory. Clinical correlation is recommended. Job ID: [id number] Dictated Date: 05/15/2016 14:40:35 Lieutenant/Deputy Date: 05/16/2016 07:33:08 / karen
== END ==
LOC: CARD 11:08
PROVIDERS: ATTEND Internal Medicine Interventional Cardiology
DX: I16.0 Hypertensive urgency (principal)
CPT/HCPCS: 78452; 93017

== ENCOUNTER 2016-05-24 08:06 | Day surgery (SDC) | payer OTHER ==
[~2016-05-24] VITALS: Ht 182.9 cm; Wt 108.0 kg
[2016-05-24] VITALS (10 sets, daily range): BP systolic 119–166; BP diastolic 87–101
[~2016-05-24 08:06] MED LIST changes: -CATHETER FLUSH 10 ML SYR IV PRN; -POTA-51 PO; -REGADENOSON 0.4 MG/5 ML SYR (LEXISCAN) IV ONE
[2016-05-24] MEDS ORDERED: HEParin (CATH LAB) 2,000 ML IV ONE (08:14)
[2016-05-24] MEDS ORDERED: LIDOCAINE 1% INJ 20 ML (XYLOCAINE) VIAL ONE (08:14)
[2016-05-24] MEDS ORDERED: NS IV 1000 ML 1,000 ML ONE (08:14)
[2016-05-24] MEDS ORDERED: NS IV 1000 ML 1,000 ML IV SCH ×2 (08:18→12:11)
[2016-05-24 08:41] LABS: MEAN PLATELET VOLUME 8.9 FL (7.4-10.4); RED BLOOD COUNT 4.02 10^6/uL (4.35-5.85); RED CELL DISTRIBUTION WIDTH 13.2 % (10.0-14.5); WHITE BLOOD COUNT 4.4 10^3/uL (4.3-11.0)
[2016-05-24 08:53] LABS: PROTHROMBIN TIME PATIENT 12.8 SEC (12.2-14.7)
[2016-05-24 08:58] LABS: ALBUMIN 3.8 G/DL (3.2-4.5); BILIRUBIN,TOTAL 0.4 MG/DL (0.1-1.0); CALCIUM 8.9 MG/DL (8.5-10.1); CREATININE SERUM 1.49 MG/DL (0.60-1.30); POTASSIUM 3.9 MMOL/L (3.6-5.0); TOTAL PROTEIN 7.3 G/DL (6.4-8.2)
[2016-05-24] MEDS ORDERED: CLOP75TA69 PO (09:07)
[2016-05-24] MEDS ORDERED: ASPI-999 PO (09:07)
[2016-05-24] MEDS ORDERED: ATOR40TA PO (09:07)
[2016-05-24] MEDS ORDERED: POTA-51 PO (09:42)
[2016-05-24] MEDS ORDERED: ATEN50TA PO (09:42)
--- NOTE | 2016-05-24 10:16 | Cardiac Procedure Note-CS/ASA ---
Pre-Procedure Note Pre-Op Procedure Note H&P Reviewed The H&P was reviewed, patient examined and no changes noted. Date H&P Reviewed: May 24, 2016 Time H&P Reviewed: 10:15 Conscious Sedation Pre-Proced Time Reviewed: 10:15 ASA Class: 3 Airway Mallampati Classification: (t[place]al[place] appropriate class) I. II. III, IV Lungs Heart ASA score ASA 1: a normal healthy patient ASA 2: a patient with a mild systemic disease (mid diabetes, controlled hypertension, obesity ASA 3: a patient with a severe systemic disease that limits activity (angina , COPD, prior Myocardial infarction) ASA 4: a patient with an incapacitating disease that is a constant threat to life (CHF, renal failure) ASA 5: a moribund patient not expected to survive 24 hrs. (ruptured aneurysm) ASA 6: a declared brain patient whose organs are being harvested. For emergent operations, add the letter E after the classification Grade 4 Sedation Plan: Analgesia, Amnesia, Plan communicated to team members, Discussed options with patient/fam, Discussed risks with patient/fam Note The patient is an appropriate candidate to undergo the planned procedure, sedation, and anesthesia. The patient immediately re-assessed prior to indication. Rehan BAER MD May 24, 2016 10:16
[2016-05-24] MEDS ORDERED: MIDAZOLAM 5 MG/5 ML (VERSED) VIAL ONE (10:30)
[2016-05-24] MEDS ORDERED: NITROGLYCERIN DRIP 25 MG/D5W 250 ML IV ONE (10:31)
[2016-05-24] MEDS ORDERED: fentaNYL INJECTION 100 MCG/2 ML AMP ONE (10:31)
[2016-05-24] MEDS ORDERED: HEParin 1000 UNIT/ML (10ML VIAL) FOR BOLUS ONE (10:31)
[2016-05-24] MEDS ORDERED: VERAPAMIL 5 MG/2 ML (CALAN) VIAL IV ONE (10:31)
[2016-05-24] MEDS ORDERED: diphenhydrAMINE 50 MG/ML INJ (BENADRYL) ONE (10:31)
[2016-05-24] MEDS ORDERED: ADENOSINE 3 MG/1 ML (ADENOSCAN) 30ML VIAL IV ONE (11:23)
--- NOTE | 2016-05-24 12:11 | Cardiology Post Procedure Note ---
Post-Procedure Note Post-Op Procedure Note Procedure Start Date: May 24, 2016 Procedure Start Time: 11:00 Name of Procedure: coronary angiography, LHC, FFR to the RCA Findings/Procedure Note Mild LAD disease, Moderate mid RCA disease, mild diffuse LCX disease. FFR of the mid RCA 0.91 Flouro time 7 minutes Flouro dose 714 mgy Anesthesia Type: Conscious Sedation Estimated blood loss (mL): 20 Contrast Amount: 67 cc Post-Operative Diagnosis Post-operative diagnosis: Moderate CAD Rehan BAER MD May 24, 2016 12:11 pm
[2016-05-24] MEDS ORDERED: PATIENT MAY USE OWN MEDS, ALL PO SCH (12:15)
--- NOTE | 2016-05-24 12:15 | Cardiology Discharge Summary ---
Diagnosis/Chief Complaint Date of Admission 05/24/2016 Date of Discharge 05/24/2016 Admission Diagnosis chest pain, hypertension, active smoking, abnormal nuclear stress test. Final/Discharge Diagnosis moderate coronary artery disease Chief Complaint/HPI Chief Complaint/HPI this is a 55-year-old gentleman with history of hypertension, active smoking, with recurrent chest pain. EKG shows ST-T wave abnormalities which may be secondary to LVH with strain pattern however ischemia cannot be ruled out. Nuclear stress test was performed which showed moderate inferior ischemia. Discharge Summary Procedures coronary angiography, left heart catheterization, FFR of the mid RCA which was 0.91. Therefore PCI was deferred. Discharge Physical Examination stable Hospital Course stable Pending Labs Laboratory Tests 05/24/16 08:32: White Blood Count 4.4, Red Blood Count 4.02, Hemoglobin 13.5, Hematocrit 37, Mean Corpuscular Volume 91, Mean Corpuscular Hemoglobin 34, Mean Corpuscular Hemoglobin Concent 37, Red Cell Distribution Width 13.2, Platelet Count 301, Mean Platelet Volume 8.9, Prothrombin Time 12.8, INR Comment 1.0, Activated Partial Thromboplast Time 26, Sodium Level 140, Potassium Level 3.9, Chloride Level 107, Carbon Dioxide Level 23, Anion Gap 10, Blood Urea Nitrogen 16, Creatinine 1.49, Estimat Glomerular Filtration Rate 60, BUN/Creatinine Ratio 11 , Glucose Level 106, Calcium Level 8.9, Total Bilirubin 0.4, Aspartate Amino Transf (AST/SGOT) 17, Alanine Aminotransferase (ALT/SGPT) 12, Alkaline Phosphatase 71, Total Protein 7.3, Albumin 3.8 Discussion & Recommendations Discussion moderate coronary artery disease. Continue secondary prevention measures including aspirin, statin. Smoking cessation. Aggressive management of hypertension. Follow up appt.: in one to [address] Danyel Melogza Diet: Cardiac Diet Activity as Tolerated: Yes Home Medications Reviewed patient Home Medication Reconciliation Form Discharge Home Medications: Reviewed and agree with Discharge Medication list on patient's Discharge Instruction sheet Condition at discharge stable Instructions to patient/family follow-up in one to [address] Montaño. Rehan MONTAÑO MD May 24, 2016 12:15 pm
--- NOTE | 2016-05-24 12:16 | Discharge Inst-Post CATH ---
Discharge Inst-CATH Post Cardiac Cath D/C Inst Follow Up/Plan follow-up in one to [address] Montaño. CARDIAC CATH DISCHARGE INSTRUCTIONS *Hold Metformin for 48 hours post heart cath. ACTIVITY * Go Home directly and rest. * Limit activity of the leg (or wrist if it was used) for 7 days including aerobics, swimming, jogging, bicycling, etc. * Restrict stair-climbing for 7 days if possible, if not, climb up with your non -cath leg, then bring together on the same step. * Avoid lifting, pushing, pulling or excessive movement of the affected extremity for 7 days. * Customary sexual activity may be resumed after 2 days-use caution not to use a position that strains or causes pain to the affected extremity. * No driving for 24 hours. * NO SMOKING. * Avoid straining for bowel movements for 7 days. * Gentle walking on level ground is allowed. * Returning to work will depend on the type of procedure and the results. Your doctor will discuss this with you. CALL YOUR DOCTOR FOR ANY OF THE FOLLOWING: *If bleeding from the puncture site occurs- Apply gentle pressure to site with clean cloth and call your doctor or EMS. * If a knot or lump forms under the skin, increases in size, or causes pain. * If bruising appears to be worsening or moving further down your leg instead of disappearing. * Temperature above 101 F. CARE OF YOUR GROIN INCISION; * Bruising or purple discoloration of the skin near the puncture site is common. * You may shower only, no bathtub bathing for 5 days. Be careful to avoid slipping as your leg may feel stiff. * If a closure device was used on your femoral artery, please see the attached guide regarding care of the device and your leg. * REMOVE the dressing from your groin the next day after your procedure in the shower. CARE OF YOUR WRIST INCISION; * Bruising or purple discoloration of the skin near the puncture site is common. * You may shower. * DO NOT submerge wrist. * Remove dressing in 24 hours. Rehan MONTAÑO MD May 24, 2016 12:16 pm
--- NOTE | 2016-05-24 14:32 | CARDIAC CATHETERIZATION ---
DATE OF SERVICE: 05/24/2016 PROCEDURE: Coronary angiography, left heart catheterization. INDICATION: Recurrent chest pain, hypertension, active smoking, abnormal nuclear stress test, EKG changes. PREOPERATIVE DIAGNOSES: 1. Recurrent chest pain. 2. Abnormal nuclear stress test. 3. Significant risk factors for coronary artery disease including hypertension and active smoking. 4. EKG abnormalities including ST-T wave abnormalities. 5. Abnormal nuclear stress test with moderate ischemia in the inferior territory. POSTOPERATIVE DIAGNOSIS: Moderate coronary artery disease. HISTORY: The patient is a 55-year-old gentleman who presented to us for recurrent chest pain. He had 1 hospitalization for a prolonged episode of chest pain. He has history of hypertension and active smoking. EKG showed ST-T wave abnormalities which could be secondary to LVH with strain pattern, however, ischemia cannot be ruled out. A nuclear stress test was performed which showed a moderate inferior ischemia, therefore, he was consented for coronary angiography. PROCEDURES PERFORMED: 1. Coronary angiography. 2. Left heart catheterization. 3. Fractional flow reserve to the mid right coronary artery. COMPLICATIONS: None. BLOOD LOSS: 20 mL. ANTICOAGULATION: IV heparin. ANESTHESIA: Conscious sedation. CONTRAST: 67 mL of omnipaque. FLUOROSCOPY TIME: 7 minutes. FLUOROSCOPY DOSE: 714 mGy. PROCEDURE DETAILS: The patient was brought to the slab inspector after informed consent was taken. All the risks and complications were explained in detail. He was prepped and draped in the usual sterile fashion. Access was gained in the right radial artery with a 6-Turkmen sheath. Coronary angiography and left heart catheterization was performed with a Mark catheter. FINDINGS: 1. Left main: Patent. 2. LAD has mild disease in the mid segment. This is a transapical vessel. 3. Left circumflex artery: Mild diffuse disease in the mid and distal left circumflex artery. There is a large obtuse marginal artery which does not have any significant stenosis. 4. RCA: Mild to moderate tandem lesions in the proximal segment of the RCA. There is mild diffuse disease in the distal RCA as well. Severity of the stenosis is 40-50% in the proximal/mid segment of the RCA. 5. Left heart catheterization: LV pressure 123/13 mmHg. LVEDP is 26 mmHg. Aortic pressure 105/78 mmHg. There is no gradient across the aortic valve. LV-gram was not done due to CKD. RECOMMENDATION: Fractional flow reserve to the mid right coronary artery is recommended. FRACTIONAL FLOW RESERVE DETAILS: We took a JR4 guide catheter, pressure wire and IV heparin for anticoagulation. ACT was 219 seconds. We crossed the lesion with the FFR wire. Baseline FFR was 0.97. We then gave adenosine 140 mcg/kg/minute for 2-1/2 minutes. Lowest FFR was 0.91 which is within normal limits therefore PCI was deferred. The wire was pulled out and post angiogram did not reveal any vascular complications. A radial band was placed. The patient tolerated the procedure well and did not have any complications. IMPRESSION AND CONCLUSION: 1. Moderate coronary artery disease. Recommend aggressive secondary prevention measures. 2. The patient will continue on aspirin, statin and antihypertensive management. 3. Smoking cessation was strongly recommended. 4. Elevated LVEDP suggests diastolic dysfunction. Job ID: [id number] DocumentID: [id number] Dictated Date: 05/24/2016 12:28:11 Stewarding Supervisor Date: 05/24/2016 13:01:44 Dictated By: SCARLETT BAER MD MTDD
[2016-05-25] MEDS ORDERED: ASPIRIN E.C. 81 MG (ECOTRIN) TAB PO SCH (09:00)
== END 2016-05-24 15:40 | disposition home or self-care (01) ==
LOC: CATH 08:06 → SURG 12:05 → CATH 15:40 → ENPENDDIS 16:00
PROVIDERS: ATTEND Internal Medicine Interventional Cardiology
DX: R07.89 Other chest pain (principal); R94.39 Abnormal result of other cardiovascular function study; I25.10 Atherosclerotic heart disease of native coronary artery without angina pectoris; I10 Essential (primary) hypertension; Z79.899 Other long term (current) drug therapy; Z72.0 Tobacco use
CPT/HCPCS: 36415; 80053; 85027; 85610; 85730; 87081; 93458; 93571

== ENCOUNTER → 2017-02-13 | Outpatient (CLI) | payer SELFPAY ==
[~2017-02-13] MED LIST changes: +POTA-51 PO
[2017-02-13 16:06] LABS: BASOPHILS % (AUTO) 0 % (0-10); EOSINOPHILS % (AUTO) 1 % (0-10); HEMATOCRIT 41 % (40-54); HEMOGLOBIN 14.8 G/DL (13.3-17.7); LYMPHOCYTES # (AUTO) 1.9 X 10^3 (1.0-4.0); LYMPHOCYTES % (AUTO) 32 % (12-44); MEAN CORPUSCULAR HEMOGLOBIN 34 PG (25-34); MEAN CORPUSCULAR HGB CONC 37 G/DL (32-36); MEAN CORPUSCULAR VOLUME 93 FL (80-99); MEAN PLATELET VOLUME 9.4 FL (7.4-10.4); MONOCYTES # (AUTO) 0.6 X 10^3 (0.0-1.0); MONOCYTES % (AUTO) 9 % (0-12); NEUTROPHILS # (AUTO) 3.6 X 10^3 (1.8-7.8); NEUTROPHILS % (AUTO) 58 % (42-75); PLATELET COUNT 263 10^3/uL (130-400); RED BLOOD COUNT 4.39 10^6/uL (4.35-5.85); RED CELL DISTRIBUTION WIDTH 12.7 % (10.0-14.5); WHITE BLOOD COUNT 6.1 10^3/uL (4.3-11.0)
[2017-02-13 16:07] LABS: BILIRUBIN,URINE NEGATIVE (NEGATIVE); CLARITY,URINE CLEAR; COLOR,URINE YELLOW; GLUCOSE, URINE (UA) NEGATIVE (NEGATIVE); KETONES,URINE NEGATIVE (NEGATIVE); LEUKOCYTE ESTERASE ,URINE NEGATIVE (NEGATIVE); NITRITE,URINE NEGATIVE (NEGATIVE); PH,URINE 5 (5-9); PROTEIN,URINE 2+ (NEGATIVE); UROBILINOGEN,URINE 1 MG/DL (NORMAL)
[2017-02-13 16:13] LABS: SQUAMOUS EPITHELIAL CELL,UR 0-2 /HPF; WBC,URINE RARE /HPF
[2017-02-13 16:20] LABS: ALBUMIN 4.2 GM/DL (3.2-4.5); BUN/CREATININE RATIO 16; CALCIUM 9.3 MG/DL (8.5-10.1); CARBON DIOXIDE 21 MMOL/L (21-32); CHLORIDE 103 MMOL/L (98-107); GFR ESTIMATED > 60; GLUCOSE 92 MG/DL (70-105); POTASSIUM 3.6 MMOL/L (3.6-5.0); SODIUM 138 MMOL/L (135-145)
[2017-02-13 16:23] LABS: BAND NEUTROPHILS 0 %; BASOPHILS % (MANUAL) 0 %; EOSINOPHILS % (MANUAL) 0 %; LYMPHOCYTES % (MANUAL) 40 %; MONOCYTES % (MANUAL) 7 %; NEUTROPHILS % (MANUAL) 53 %; NUCLEATED RED BLOOD CELLS 1
[2017-02-13 16:24] LABS: RBC MORPH NORMAL
== END ==
LOC: LAB 15:39
PROVIDERS: ATTEND Internal Medicine Interventional Cardiology
DX: N18.9 Chronic kidney disease, unspecified (principal)
CPT/HCPCS: 36415; 80069; 81000; 82570; 84156; 85007; 85027; 87088

== ENCOUNTER → 2017-05-14 | Outpatient (CLI) | payer SELFPAY ==
[2017-05-14 13:08] LABS: BASOPHILS % (AUTO) 1 % (0-10); EOSINOPHILS % (AUTO) 1 % (0-10); HEMATOCRIT 42 % (40-54); HEMOGLOBIN 15.7 G/DL (13.3-17.7); LYMPHOCYTES # (AUTO) 1.5 X 10^3 (1.0-4.0); LYMPHOCYTES % (AUTO) 39 % (12-44); MEAN CORPUSCULAR HEMOGLOBIN 35 PG (25-34); MEAN CORPUSCULAR HGB CONC 37 G/DL (32-36); MEAN CORPUSCULAR VOLUME 95 FL (80-99); MEAN PLATELET VOLUME 9.8 FL (7.4-10.4); MONOCYTES # (AUTO) 0.4 X 10^3 (0.0-1.0); MONOCYTES % (AUTO) 11 % (0-12); NEUTROPHILS # (AUTO) 1.8 X 10^3 (1.8-7.8); NEUTROPHILS % (AUTO) 48 % (42-75); PLATELET COUNT 210 10^3/uL (130-400); RED BLOOD COUNT 4.44 10^6/uL (4.35-5.85); RED CELL DISTRIBUTION WIDTH 13.6 % (10.0-14.5); WHITE BLOOD COUNT 3.7 10^3/uL (4.3-11.0)
[2017-05-14 13:33] LABS: CLARITY,URINE CLEAR; COLOR,URINE AMBER; GLUCOSE, URINE (UA) NEGATIVE (NEGATIVE); KETONES,URINE 2+ (NEGATIVE); LEUKOCYTE ESTERASE ,URINE 1+ (NEGATIVE); NITRITE,URINE NEGATIVE (NEGATIVE); PH,URINE 5 (5-9); PROTEIN,URINE 3+ (NEGATIVE); UROBILINOGEN,URINE 4 MG/DL (NORMAL)
[2017-05-14 13:43] LABS: ALBUMIN 4.6 GM/DL (3.2-4.5); BUN/CREATININE RATIO 11; CARBON DIOXIDE 24 MMOL/L (21-32); CHLORIDE 102 MMOL/L (98-107); CREATININE SERUM 1.27 MG/DL (0.60-1.30); GFR ESTIMATED > 60; GLUCOSE 79 MG/DL (70-105); MAGNESIUM 1.7 MG/DL (1.8-2.4); PHOSPHORUS 2.5 MG/DL (2.3-4.7); POTASSIUM 3.9 MMOL/L (3.6-5.0); SODIUM 140 MMOL/L (135-145); URIC ACID 6.5 MG/DL (2.6-7.2)
[2017-05-14 15:04] LABS: BILIRUBIN,URINE 1+ (NEGATIVE)
[2017-05-14 15:05] LABS: BACTERIA,URINE TRACE /HPF; WBC,URINE RARE /HPF
== END ==
LOC: LAB 12:35
PROVIDERS: ATTEND Internal Medicine Nephrology
DX: I12.9 Hypertensive chronic kidney disease with stage 1 through stage 4 chronic kidney disease, or unspecified chronic kidney disease (principal); N18.2 Chronic kidney disease, stage 2 (mild); R80.8 Other proteinuria
CPT/HCPCS: 36415; 80069; 81000; 82088; 82306; 82533; 82570; 83735; 83835; 83970; 84156; 84443; 84550; 85025; 87088

== ENCOUNTER → 2017-08-13 | Outpatient (CLI) | payer OTHER ==
[2017-08-13 16:20] LABS: BASOPHILS % (AUTO) 0 % (0-10); EOSINOPHILS % (AUTO) 1 % (0-10); HEMATOCRIT 40 % (40-54); HEMOGLOBIN 14.6 G/DL (13.3-17.7); LYMPHOCYTES # (AUTO) 1.3 X 10^3 (1.0-4.0); LYMPHOCYTES % (AUTO) 29 % (12-44); MEAN CORPUSCULAR HEMOGLOBIN 34 PG (25-34); MEAN CORPUSCULAR HGB CONC 37 G/DL (32-36); MEAN CORPUSCULAR VOLUME 92 FL (80-99); MEAN PLATELET VOLUME 9.7 FL (7.4-10.4); MONOCYTES # (AUTO) 0.4 X 10^3 (0.0-1.0); MONOCYTES % (AUTO) 9 % (0-12); NEUTROPHILS # (AUTO) 2.6 X 10^3 (1.8-7.8); NEUTROPHILS % (AUTO) 61 % (42-75); PLATELET COUNT 211 10^3/uL (130-400); RED BLOOD COUNT 4.32 10^6/uL (4.35-5.85); WHITE BLOOD COUNT 4.3 10^3/uL (4.3-11.0)
[2017-08-13 16:32] LABS: BILIRUBIN,URINE NEGATIVE (NEGATIVE); CLARITY,URINE CLEAR; COLOR,URINE YELLOW; GLUCOSE, URINE (UA) NEGATIVE (NEGATIVE); KETONES,URINE NEGATIVE (NEGATIVE); LEUKOCYTE ESTERASE ,URINE NEGATIVE (NEGATIVE); NITRITE,URINE NEGATIVE (NEGATIVE); PH,URINE 7 (5-9); PROTEIN,URINE 3+ (NEGATIVE); UROBILINOGEN,URINE NORMAL (NORMAL)
[2017-08-13 16:39] LABS: ALBUMIN 4.5 GM/DL (3.2-4.5); BUN/CREATININE RATIO 8; CALCIUM 9.4 MG/DL (8.5-10.1); CARBON DIOXIDE 23 MMOL/L (21-32); CHLORIDE 105 MMOL/L (98-107); GFR ESTIMATED > 60; GLUCOSE 80 MG/DL (70-105); MAGNESIUM 1.9 MG/DL (1.8-2.4); PHOSPHORUS 2.6 MG/DL (2.3-4.7); POTASSIUM 3.8 MMOL/L (3.6-5.0); SODIUM 140 MMOL/L (135-145)
[2017-08-13 16:46] LABS: BACTERIA,URINE NEGATIVE /HPF; WBC,URINE RARE /HPF
== END ==
LOC: LAB 15:39
PROVIDERS: ATTEND Internal Medicine Nephrology
DX: I12.9 Hypertensive chronic kidney disease with stage 1 through stage 4 chronic kidney disease, or unspecified chronic kidney disease (principal); N18.2 Chronic kidney disease, stage 2 (mild); R80.8 Other proteinuria; E55.9 Vitamin D deficiency, unspecified
CPT/HCPCS: 36415; 80069; 81000; 82088; 82570; 83735; 84156; 84443; 85025

== ENCOUNTER 2018-02-08 23:14 | Day surgery (SDC) | payer OTHER ==
[~2018-02-08] VITALS: Ht 185.4 cm; Wt 104.8 kg
[~2018-02-08 23:14] MED LIST changes: -AMLO10TA2 PO; +AMLO10TA6 PO
[2018-02-08] MEDS ORDERED: NITROGLYCERIN 0.4 MG SL TABS BTL 25'S SL ONE (23:22)
[2018-02-08] MEDS ORDERED: NITROGLYCERIN 0.4 MG SL TABS BTL 25'S SL PRN (23:30)
[2018-02-08 23:31] LABS: BASOPHILS % (AUTO) 0 % (0-10); EOSINOPHILS # (AUTO) 0.1 10^3/uL (0.0-0.3); EOSINOPHILS % (AUTO) 1 % (0-10); HEMATOCRIT 42 % (40-54); HEMOGLOBIN 15.5 G/DL (13.3-17.7); LYMPHOCYTES # (AUTO) 2.4 X 10^3 (1.0-4.0); LYMPHOCYTES % (AUTO) 42 % (12-44); MEAN CORPUSCULAR HEMOGLOBIN 34 PG (25-34); MEAN CORPUSCULAR HGB CONC 37 G/DL (32-36); MEAN CORPUSCULAR VOLUME 93 FL (80-99); MEAN PLATELET VOLUME 9.2 FL (7.4-10.4); MONOCYTES # (AUTO) 0.6 X 10^3 (0.0-1.0); MONOCYTES % (AUTO) 10 % (0-12); NEUTROPHILS # (AUTO) 2.6 X 10^3 (1.8-7.8); NEUTROPHILS % (AUTO) 46 % (42-75); PLATELET COUNT 239 10^3/uL (130-400); RED CELL DISTRIBUTION WIDTH 13.4 % (10.0-14.5); WHITE BLOOD COUNT 5.6 10^3/uL (4.3-11.0)
--- NOTE | 2018-02-08 23:34 | ED Chest Pain ---
General Stated Complaint: CHEST PAINS;SOB Source: patient, spouse Exam Limitations: no limitations History of Present Illness Date Seen by Provider: Feb 08, 2018 Time Seen by Provider: 23:15 Initial Comments Patient is not a particularly forthcoming historian however his spouse does most talking for him. He comes to the ER with a history of chest pain for the past 45 minutes progressively worsening in the center of his chest nonradiating. Pain is not reproduced by pushing on his chest or deep inspirations. He does have an occasional dry cough for the past few days or week. He has a history of early-onset coronary artery disease and has had a CABG by Dr. Montaño but no stents. He was told that he had a heart attack before. He cannot be on aspirin because it is stage III kidney disease is followed by Dr. Montaño nephrology. He is not having any nausea sweats or chills. Exertion does not make his pain worse. He did not take any nitroglycerin prior to this arrival. He does smoke about half a pack cigarettes a day but denies any recreational drug use history. He drinks about 3 drinks of liquor a day. He denies diabetes but does have high blood pressure, hypercholesterolemia. No thyroid disorder. No significant familial early onset coronary artery disease. Allergies and Home Medications Allergies Coded Allergies: No Known Drug Allergies (Unverified , 01/16/16) Home Medications Amlodipine Besylate 10 Mg Tablet, 10 MG PO DAILY, (Reported) Aspirin 81 Mg Tab.chew, 81 MG PO DAILY, (Reported) Atenolol 50 Mg Tablet, 25 MG PO DAILY, (Reported) TAKES 1/2 (50MG) TABLET Atorvastatin Calcium 40 Mg Tablet, 40 MG PO HS, (Reported) Chlorthalidone 25 Mg Tablet, 25 MG PO DAILY, (Reported) Clonidine HCl 0.1 Mg Tablet, 0.1 MG PO HS, (Reported) Lisinopril 40 Mg Tablet, 40 MG PO HS, (Reported) Loratadine 10 Mg Tablet, 10 MG PO DAILY, (Reported) Potassium Chloride 20 Meq Tablet.er, 20 MEQ PO DAILY, (Reported) Patient Home Medication List Home Medication List Reviewed: Yes Review of Systems Review of Systems Constitutional: No chills, No diaphoresis, No fever EENTM: No Blurred Vision, No Double Vision Respiratory: Cough (Nonproductive); Denies Orthopnea, Denies Shortness of Air, Denies Wheezing Cardiovascular: See HPI, Chest Pain; Denies Edema, Denies Lightheadedness, Denies Palpitations, Denies Syncope Gastrointestinal: Denies Constipated, Denies Diarrhea, Denies Nausea Genitourinary: Denies Burning, Denies Discharge Musculoskeletal: No back pain, No joint pain Skin: No pruritus, No rash Past Ozzkthz-Xzvufw-Etlyfq Hx Patient Social History Alcohol Use: Regular Use Alcohol Beverage of Choice: Vodka Recreational Drug Use: No Smoking Status: Current Everyday Smoker Type Used: Cigarettes (Half pack per day) 2nd Hand Smoke Exposure: No Recent Foreign Travel: No Contact w/Someone Who Travel: No Recent Hopitalizations: No Immunizations Up To Date PED Vaccines UTD: No Seasonal Allergies Seasonal Allergies: Yes Past Medical History Surgeries: No Respiratory: Yes (walking pneumonia) Pneumonia Cardiac: Yes Hypertension Neurological: No Reproductive Disorders: No Sexually Transmitted Disease: No HIV/AIDS: No Genitourinary: No Gastrointestinal: Yes Gastroesophageal Reflux Musculoskeletal: No Endocrine: No HEENT: No Cancer: No Psychosocial: No Integumentary: No Blood Disorders: No Family Medical History Alcoholism 19 FATHER G8 BROTHER Diabetes mellitus 19 MOTHER G8 BROTHER FH: liver disease 19 FATHER G8 BROTHER G8 BROTHER Hypertension 19 MOTHER G8 SISTER Myocardial infarction 19 FATHER Heart Disease, Hypertension Physical Exam Vital Signs Vital Signs - First Documented Capillary Refill : Height, Weight, BMI Height: 6'0.00" Weight: 238lbs. 0.0oz. 107.020877jl; 32.3 BMI Method:Stated General Appearance: WD/WN, Moderate Distress HEENT: PERRL/EOMI, Pharynx Normal, Moist Mucous Membranes Neck: Full Range of Motion, Normal Inspection Respiratory: Chest Non Tender, Lungs Clear, Normal Breath Sounds, No Accessory Muscle Use, No Respiratory Distress Cardiovascular: Regular Rate, Rhythm, No Edema, Normal Peripheral Pulses Gastrointestinal: Normal Bowel Sounds, Non Tender, Soft Neurologic/Psychiatric: Alert, Oriented x3, Other (Anxious) Skin: Normal Color, Warm/Dry Progress/Results/Core Measures Results/Orders Lab Results Laboratory Tests Test 02/08/18 23:20 Range/Units White Blood Count 5.6 4.3-11.0 10^3/uL Red Blood Count 4.50 4.35-5.85 10^6/uL Hemoglobin 15.5 13.3-17.7 G/DL Hematocrit 42 40-54 % Mean Corpuscular Volume 93 80-99 FL Mean Corpuscular Hemoglobin 34 25-34 PG Mean Corpuscular Hemoglobin Concent 37 H 32-36 G/DL Red Cell Distribution Width 13.4 10.0-14.5 % Platelet Count 239 130-400 10^3/uL Mean Platelet Volume 9.2 7.4-10.4 FL Neutrophils (%) (Auto) 46 42-75 % Lymphocytes (%) (Auto) 42 12-44 % Monocytes (%) (Auto) 10 0-12 % Eosinophils (%) (Auto) 1 0-10 % Basophils (%) (Auto) 0 0-10 % Neutrophils # (Auto) 2.6 1.8-7.8 X 10^3 Lymphocytes # (Auto) 2.4 1.0-4.0 X 10^3 Monocytes # (Auto) 0.6 0.0-1.0 X 10^3 Eosinophils # (Auto) 0.1 0.0-0.3 10^3/uL Basophils # (Auto) 0.0 0.0-0.1 10^3/uL Prothrombin Time 12.1 L 12.2-14.7 SEC INR Comment 0.9 0.8-1.4 Activated Partial Thromboplast Time 26 24-35 SEC Sodium Level 140 135-145 MMOL/L Potassium Level 3.7 3.6-5.0 MMOL/L Chloride Level 106 98-107 MMOL/L Carbon Dioxide Level 19 L 21-32 MMOL/L Anion Gap 15 H 5-14 MMOL/L Blood Urea Nitrogen 13 7-18 MG/DL Creatinine 1.49 H 0.60-1.30 MG/DL Estimat Glomerular Filtration Rate 59 BUN/Creatinine Ratio 9 Glucose Level 93 70-105 MG/DL Calcium Level 9.0 8.5-10.1 MG/DL Corrected Calcium 8.9 8.5-10.1 MG/DL Magnesium Level 2.3 1.8-2.4 MG/DL Total Bilirubin 0.3 0.1-1.0 MG/DL Aspartate Amino Transf (AST/SGOT) 20 5-34 U/L Alanine Aminotransferase (ALT/SGPT) 15 0-55 U/L Alkaline Phosphatase 66 40-136 U/L Myoglobin 83.3 10.0-92.0 NG/ML Troponin I < 0.30 <0.30 NG/ML B-Type Natriuretic Peptide 244.4 H <100.0 PG/ML Total Protein 7.7 6.4-8.2 GM/DL Albumin 4.1 3.2-4.5 GM/DL My Orders Orders - KAIN ESPOSITO Continuous Ekg Monitoring (02/08/18 23:18) Ekg Tracing (02/08/18 23:18) Cbc With Automated Diff (02/08/18 23:24) Magnesium (02/08/18 23:24) Chest 1 View, Ap/Pa Only (02/08/18 23:24) Cardiac Profile 1 (02/08/18 23:24) Comprehensive Metabolic Panel (02/08/18 23:24) Myoglobin Serum (02/08/18 23:24) Protime With Inr (02/08/18 23:24) Partial Thromboplastin Time (02/08/18 23:24) O2 (02/08/18 23:24) Lipid Panel (02/09/18 06:00) Nitroglycerin 0.4 Mg Btl 25's (Nitrostat (02/08/18 23:30) Saline Lock/Iv-Start (02/08/18 23:24) BNP (02/08/18 23:24) Nitroglycerin 0.4 Mg Btl 25's (Nitrostat (02/08/18 23:22) Heparin (Bolus Per Protocol) (Heparin (B (02/08/18 23:45) Medications Given in ED Current Medications Medications Dose Ordered Sig/Milton Route Start Time Stop Time Status Last Admin Dose Admin Nitroglycerin 0.4 mg UD PRN SL 02/08/18 23:30 02/08/18 23:24 0.4 MG Vital Signs/I&O 02/08/18 02/08/18 02/08/18 23:15 23:15 23:15 Temp 97.8 Pulse 70 Resp 16 B/P (MAP) 134/80 (98) Pulse Ox 95 95 O2 Delivery Nasal Cannula Nasal Cannula Nasal Cannula O2 Flow Rate 2.00 2.0 2.0 Progress Progress Note : Time: 23:29 Progress Note Anterior, right lateral strain pattern but not in acute ST elevation FL at this time. We'll repeat the EKG in about 30 minutes. Giving him nitroglycerin now but we cannot give him aspirin. We'll get some labs go ahead and hit him a bolus of 5000 units heparin. Cardiac catheterization May [address] Montaño: At that time he had an abnormal nuclear stress test and EKG showing ST wave abnormalities which could be secondary to left ventricular hypertrophy with strain pattern and unable to rule out ischemia. The nuclear stress test showed moderate inferior ischemia. Moderate coronary artery disease recommend aggressive secondary prevention measures. Elevated left ventricular end- diastolic pressure suggesting diastolic dysfunction. Initial ECG Impression Date: Feb 08, 2018 Initial ECG Impression Time: 23:21 Initial ECG Rate: 70 Initial ECG Rhythm: Normal Sinus Initial ECG Intervals: Normal Initial ECG Impression: Nonspecific Changes Initial ECG Comparisson: Changed Comment LVH with some ST depression 1 block seen and leads 1, V4, V5 and half a block in leads V6 and aVL. Reciprocal 1 block elevation in aVR and anterior lead V1. This could correspond to right heart strain versus ischemia pattern. Diagnostic Imaging Diagonstic Imaging: Xray Plain Films/CT/US/NM/MRI: chest (1v) Comments No acute cardio pulmonary process Reviewed: Reviewed by Me Departure Communication (Admissions) Time/Spoke to Admitting Phy: 00:27 Discussed case lab imaging and EKG and she agrees to observe the patient. Time/Spoke to Consulting Phy: 00:25 Discussed case lab imaging EKG with Dr. Markham and he agrees with putting the patient up. Since he won't take the aspirin he recommends 300 mg Plavix. Impression Primary Impression: Chest pain Qualified Codes: R07.9 - Chest pain, unspecified Disposition: ADMITTED INPATIENT Condition: Stable Admissions Decision to Admit Reason: Admit from ER (General) Decision to Admit/Date: Feb 09, 2018 Time/Decision to Admit Time: 00:27 Departure-Patient Inst. Referrals: ABDIAS SAMUEL DO (PCP) Primary Care Physician ROBERT PLASCENCIA (Family) Primary Care Physician KAIN ESPOSITO Feb 08, 2018 23:34
[2018-02-08] MEDS ORDERED: HEParin 1000 UNIT/ML (10ML VIAL) FOR BOLUS IV SCH (23:45)
[2018-02-08 23:50] LABS: INR 0.9 (0.8-1.4); PROTHROMBIN TIME PATIENT 12.1 SEC (12.2-14.7)
--- OUTSIDE RECORDS SUMMARY | 2018-02-08 23:50 | XMS REPORT ---
Author Author ROBERT PLASCENCIA Organization [facility] Address [address] [place] [address] Care Team Providers Care Pharmacy Specialist Name Role Phone ROBERT PLASCENCIA Unavailable PROBLEMS Type Condition ICD9-CM Code VES37-QG Code Onset Dates Condition Status SNOMED Code Problem Left sided sciatica M54.32 Active 30493355 Problem Seasonal allergic rhinitis due to pollen J30.1 Active 45897584 Problem Pulmonary hypertension I27.2 Active 67351009 Problem Essential hypertension I10 Active 31074791 Problem Drug-induced erectile dysfunction N52.2 Active 697008262 Problem Other secondary hypertension I15.8 Active 34261054 ALLERGIES No Information ENCOUNTERS Encounter Location Date Diagnosis [place] [id number] [place] [address]85[address]298 Dec, Essential hypertension I10 [place] [address] [address] Oct, Essential hypertension I10 ; Facial swelling R22.0 ; Trochanteric bursitis, left hip M70.62 and Left sided sciatica M54.32 [place] [id number] [place] [address] 39653- 0983 Oct, Essential hypertension I10 [place] [id number] [place] [address] 94329- 5405 Aug, Essential hypertension I10 [place] [address] [address] Aug, Essential hypertension I10 [place] [address] [address] Jul, [place] [address] [address] June, [facility] [address] [place] [address] 08425- 1110 May, Essential hypertension I10 [facility] [id number] [place] [address] 58678- 8566 May, [facility] [id number] [place] [address] [id number] May, Dental caries K02.9 [facility] [id number] [place] [phone] May, Dental examination Z01.20 [facility] [id number] [place] [address] 798000- 2536 May, Dental examination Z01.20 [facility] [id number] [place] [address] 31366- 2696 May, Facial swelling R22.0 [facility] [id number] [place] [address] 21377- 2535 May, [facility] [id number] [place] [address] 92268- 2659 Apr, Essential hypertension I10 [facility] [id number] [place] [address] 72618- 5760 Mar, Essential hypertension I10 and Acute superficial gastritis without hemorrhage K29.00 [facility] [id number] [place] [address] 14977- 3596 Feb, [facility] [id number] [place] [address] 76604- 5826 Feb, Essential hypertension I10 [facility] [id number] [place] [address] 57303- 9987 Feb, [facility] [id number] [place] [address] 25664- 3806 Jan, [facility] [id number] [place] [address] 57821 -3456 Jan, Facial swelling R22.0 [facility] [address], [place] [address] Dec, Essential hypertension I10 [facility] [id number] [place] [address] 92336- 7848 Dec, Essential hypertension I10 [facility] [id number] [place] [address] 28064- 4121 Nov, [facility] [id number] [place] [address] 68315- 4065 Nov, Essential hypertension I10 and Subconjunctival hemorrhage of right eye H11.31 [facility] [id number] [place] [address] 42983 -4002 Nov, Essential hypertension I10 and Subconjunctival hemorrhage of right eye H11.31 [facility] [id number] [place] [address] 56982- 4644 Sep, Essential hypertension I10 [facility] [id number] [place] [address] 02134- 8715 Jul, Seasonal allergic rhinitis due to pollen J30.1 [facility] [id number] [place] [address] 96437- [address]37 Jul, [facility] [address] [address] May, [facility] [place] [id number] [place] [phone] May, [facility] [address] [place] [address] 12559- 1847 Apr, Essential hypertension I10 ; Seasonal allergic rhinitis due to pollen J30.1 and Drug-induced erectile dysfunction N52.2 [facility] [address] [address] Apr, Essential hypertension I10 [facility] [id number] [place] [address] 05716- 5009 Mar, [facility] [address] [place] [address] 00975- 6701 Mar, Chest discomfort R07.89 ; Shortness of breath R06.02 ; Tobacco abuse Z72.0 ; Other secondary hypertension I15.8 ; Pulmonary hypertension I27.2 and Essential hypertension I10 [facility] [id number] [place] [address] 78563- 5854 Feb, Essential hypertension I10 and Tobacco abuse Z72.0 [facility] [id number] [place] [address] 72567- 7581 Feb, [facility] [id number] [place] [address] 54762- 4173 Feb, Essential hypertension I10 [facility] [id number] [place] [address] 78117- 4879 Jan, Essential hypertension I10 [facility] [id number] [place] [address] [phone] Jan, Dental examination Z01.20 and Dental caries K02.9 [facility] [id number] [place] [address] 94859- 8365 Jan, [facility] [address] [place] [address] 41809- 6676 Jan, [facility] [address] [place] [address] 67500- 3862 Jan, Essential hypertension I10 [facility] [address] [place] [address] 68470- 8618 Jan, Essential hypertension I10 [facility] [id number] [place] [address] 51092- 7191 Jan, [facility] [address] [place] [address] 49157- 6810 Jan, [facility] [id number] [place] [address] 59412- 9087 Jan, [facility] [address] [facility] [id number] [address] Jan, [facility] [address] [facility] [id number] [address] Jan, Hypertensive crisis I16.9 and Encounter to establish care Z76.89 [facility] [address] [facility] [id number] [address] Dec, IMMUNIZATIONS No Known Immunizations SOCIAL HISTORY Never Assessed REASON FOR VISIT Refill request PLAN OF CARE VITAL SIGNS MEDICATIONS Medication Instructions Dosage Frequency Start Date End Date Duration Status Amlodipine Besylate 10 MG Orally Once a day 1 tablet 24h 30 days Active RESULTS No Results PROCEDURES No Known procedures INSTRUCTIONS MEDICATIONS ADMINISTERED No Known Medications MEDICAL (GENERAL) HISTORY Type Description Date Medical History Hypertension Medical History Chemical stress test neg for ischemia 05/2016 Medical History Bronchitis as a kid Hospitalization History hypertension 2xs in ICU for 2 days 2014 Hospitalization History HTN 2013
--- OUTSIDE RECORDS SUMMARY | 2018-02-08 23:51 | XMS REPORT ---
Author Author ROBERT PLASCENCIA Organization [facility] Address [address] [place] [address] Care Team Providers Care Harness Cutter Name Role Phone ROBERT PLASCENCIA Unavailable PROBLEMS Type Condition ICD9-CM Code ABO98-MY Code Onset Dates Condition Status SNOMED Code Problem Drug-induced erectile dysfunction N52.2 Active 798932929 Problem Seasonal allergic rhinitis due to pollen J30.1 Active 92236490 Problem Essential hypertension I10 Active 22623889 Problem Other secondary hypertension I15.8 Active 43506220 Problem Pulmonary hypertension I27.2 Active 10244735 ALLERGIES No Information ENCOUNTERS Encounter Location Date Diagnosis [facility] [id number] [place] [address] 81149- 9333 Oct, [facility] [id number] [place] [address] 54113- 6303 Aug, Essential hypertension I10 [facility] [id number] [place] [address] 12749- 5356 Aug, Essential hypertension I10 [facility] [id number] [place] [address] 14591- 0874 Jul, [facility] [id number] [place] [address] 60389- 6952 June, [facility] [id number] [place] [address] 42969- 6598 May, Essential hypertension I10 [facility] [id number] [place] [address] 16301- 6387 May, [facility] [id number] [place] [address] [id number] May, Dental caries K02.9 [facility] [address] [phone] 16 May, 2017 Dental examination Z01.20 [facility] [id number] [place] [address] 06435- 4360 16 May, 2017 Dental examination Z01.20 [facility] [id number] [place] [address] 18456- 5955 16 May, 2017 Facial swelling R22.0 [facility] [id number] [place] [address] 91808- 6726 04 May, 2017 [facility] [id number] [place] [address] 02028- 0635 Apr, Essential hypertension I10 [facility] [id number] [place] [address] 66364- 6566 07 Mar, 2017 Essential hypertension I10 and Acute superficial gastritis without hemorrhage K29.00 [facility] [id number] [place] [address] 18400- 1369 Feb, [facility] [id number] [place] [address] 98663- 8120 Feb, Essential hypertension I10 [facility] [id number] [place] [address] 02271- 8408 Feb, [facility] [id number] [place] [address] 05522- 0639 Jan, [facility] [id number] [place] [address] 42047 -9014 Jan, Facial swelling R22.0 [facility] [id number] [place] [address] 82653- 6095 Dec, Essential hypertension I10 [facility] [id number] [place] [address] 86360- 1524 Dec, Essential hypertension I10 [facility] [id number] [place] [address] 77406- 2958 Nov, [facility] [address] [address]- 2493 Nov, Essential hypertension I10 and Subconjunctival hemorrhage of right [facility] H11.31 [facility] [id number] [place] [address] 04620 -2402 Nov, Essential hypertension I10 and Subconjunctival hemorrhage of right eye H11.31 [facility] [id number] [place] [address] 45991- 1612 Sep, Essential hypertension I10 [place] [facility] [id number] [place] [address] 50221- 4415 Jul, Seasonal allergic rhinitis due to pollen J30.1 [place] [facility] [id number] [place] [address] 22414- 9704 Jul, [place] [id number] [place] [address] 52572- 1466 May, [facility] [address] [id number] May, [place] [id number] [place] [address] 74089- 5423 Apr, Essential hypertension I10 ; Seasonal allergic rhinitis due to pollen J30.1 and Drug-induced erectile dysfunction N52.2 [place] [id number] [place] [address] 35052- 6417 Apr, Essential hypertension I10 [place] [facility] [id number] [place] [address] 24132- 5348 Mar, [facility] [id number] [place] [address] 73580- 0074 Mar, Chest discomfort R07.89 ; Shortness of breath R06.02 ; Tobacco abuse Z72.0 ; Other secondary hypertension I15.8 ; Pulmonary hypertension I27.2 and Essential hypertension I10 [place] [id number] [place] [address] 75341- 1012 Feb, Essential hypertension I10 and Tobacco abuse Z72.0 [facility] [id number] [address]- 0990 Feb, [facility] [id number] [place] [address] 00149- 8150 Feb, Essential hypertension I10 [facility] [id number] [place] [address] 60508- 8514 Jan, Essential hypertension I10 [facility] [id number] [place] [address] [id number] Jan, Dental examination Z01.20 and Dental caries K02.9 [facility] [id number] [place] [address] 36064- 1697 Jan, [facility] [id number] [place] [address] 91047- 3285 Jan, [facility] [id number] [place] [address] 19329- 2918 Jan, Essential hypertension I10 [facility] [id number] [place] [address] 13965- 3185 Jan, Essential hypertension I10 [facility] [id number] [place] [address] 05844- 9180 Jan, [facility] [id number] [place] [address] 86219- 1198 Jan, [facility] [address] [place] [address] 74858- 1278 Jan, [facility] [id number] [place] [address] 71147- 9492 Jan, [facility] [id number] [place] [address] 84253- 8601 Jan, Hypertensive crisis I16.9 and Encounter to establish care Z76.89 [facility] [id number] [place] [address] 12621- 2542 21 Nov, 2016 IMMUNIZATIONS No Known Immunizations SOCIAL HISTORY Never Assessed REASON FOR VISIT Refill request PLAN OF CARE VITAL SIGNS MEDICATIONS Medication Instructions Dosage Frequency Start Date End Date Duration Status Clonidine HCl 0.1 MG Orally Once a day 1 tablet at bedtime 24h 90 days Active RESULTS No Results PROCEDURES No Known procedures INSTRUCTIONS MEDICATIONS ADMINISTERED No Known Medications MEDICAL (GENERAL) HISTORY Type Description Date Medical History Hypertension Medical History Chemical stress test neg for ischemia 05/2016 Medical History Bronchitis as a kid Hospitalization History hypertension 2xs in ICU for 2 days 2014 Hospitalization History HTN 2013
--- OUTSIDE RECORDS SUMMARY | 2018-02-08 23:51 | XMS REPORT ---
Author Author ROBERT PLASCENCIA Organization [facility] Address [address] [place] [address] Care Team Providers Care Senior Project Controls Specialist Name Role Phone ROBERT PLASCENCIA Unavailable PROBLEMS Type Condition ICD9-CM Code LWL09-OR Code Onset Dates Condition Status SNOMED Code Problem Drug-induced erectile dysfunction N52.2 Active 709582510 Problem Seasonal allergic rhinitis due to pollen J30.1 Active 25306640 Problem Essential hypertension I10 Active 98062459 Problem Other secondary hypertension I15.8 Active 04370148 Problem Pulmonary hypertension I27.2 Active 31519801 ALLERGIES No Information ENCOUNTERS Encounter Location Date Diagnosis [facility] [id number] [place] [address] 67401- 4867 Sep, [facility] [id number] [place] [address] 67866- 5475 Aug, Essential hypertension I10 [facility] [id number] [place] [address] 60516- 0536 Aug, Essential hypertension I10 [facility] [id number] [place] [address] 72855- 1190 Jul, [facility] [id number] [place] [address] 08445- 7975 June, [facility] [id number] [place] [address] 05988- 7256 May, Essential hypertension I10 [facility] [id number] [place] [address] 75098- 0279 May, [facility] [id number] [place] [address] [id number] May, Dental caries K02.9 [facility] [address] [id number] 16 May, 2017 Dental examination Z01.20 [facility] [id number] [place] [address] 56857- 3119 16 May, 2017 Dental examination Z01.20 [facility] [id number] [place] [address] 10812- 0622 16 May, 2017 Facial swelling R22.0 [facility] [id number] [place] [address] 17955- 9767 04 May, 2017 [facility] [id number] [place] [address] 77954- 3343 Apr, Essential hypertension I10 [facility] [id number] [place] [address] 75629- 9638 07 Mar, 2017 Essential hypertension I10 and Acute superficial gastritis without hemorrhage K29.00 [facility] [id number] [place] [address] 54953- 3377 Feb, [facility] [id number] [place] [address] 19622- 8196 Feb, Essential hypertension I10 [facility] [id number] [place] [address] 33666- 5594 Feb, [facility] [id number] [place] [address] 73145- 6777 Jan, [facility] [id number] [place] [address] 31957 -4468 Jan, Facial swelling R22.0 [facility] [id number] [place] [address] 78585- 9773 Dec, Essential hypertension I10 [facility] [id number] [place] [address] 17676- 2261 Dec, Essential hypertension I10 [facility] [id number] [place] [address] 34183- 9802 Nov, [facility] [address] [address]- 2577 Nov, Essential hypertension I10 and Subconjunctival hemorrhage of right eye H11.31 [facility] [id number] [place] [address] 98045 -2569 Nov, Essential hypertension I10 and Subconjunctival hemorrhage of right eye H11.31 [facility] [id number] [place] [address] 13494- 2752 Sep, Essential hypertension I10 [place] [facility] [id number] [place] [address] 56679- 6781 Jul, Seasonal allergic rhinitis due to pollen J30.1 [place] [facility] [id number] [place] [address] 71531- 3189 Jul, [place] [id number] [place] [address] 83669- 9046 May, [facility] [address] [id number] May, [place] [id number] [place] [address] 38819- 5415 Apr, Essential hypertension I10 ; Seasonal allergic rhinitis due to pollen J30.1 and Drug-induced erectile dysfunction N52.2 [place] [id number] [place] [address] 77241- 5681 Apr, Essential hypertension I10 [place] [facility] [id number] [place] [address] 21234- 1965 Mar, [facility] [id number] [place] [address] 91068- 0645 Mar, Chest discomfort R07.89 ; Shortness of breath R06.02 ; Tobacco abuse Z72.0 ; Other secondary hypertension I15.8 ; Pulmonary hypertension I27.2 and Essential hypertension I10 [place] [id number] [place] [address] 25910- 5838 Feb, Essential hypertension I10 and Tobacco abuse Z72.0 [facility] [id number] [address]- 0754 Feb, [facility] [id number] [place] [address] 95596- 5138 Feb, Essential hypertension I10 [facility] [id number] [place] [address] 18839- 2854 Jan, Essential hypertension I10 [facility] [id number] [place] [address] [id number] Jan, Dental examination Z01.20 and Dental caries K02.9 [facility] [id number] [place] [address] 09534- 8759 Jan, [facility] [id number] [place] [address] 93947- 6084 Jan, [facility] [id number] [place] [address] 53278- 7878 Jan, Essential hypertension I10 [facility] [id number] [place] [address] 20212- 3249 Jan, Essential hypertension I10 [facility] [id number] [place] [address] 24001- 0858 Jan, [facility] [address] [place] [address] 12398- 9532 Jan, [facility] [address] [place] [address] 27179- 6249 Jan, [facility] [id number] [place] [address] 77699- 6132 Jan, [facility] [id number] [place] [address] 99136- 1244 Jan, Hypertensive crisis I16.9 and Encounter to establish care Z76.89 [facility] [id number] [place] [address] 37146- 6248 21 Nov, 2016 IMMUNIZATIONS No Known Immunizations SOCIAL HISTORY Never Assessed REASON FOR VISIT Refill request PLAN OF CARE VITAL SIGNS MEDICATIONS Unknown Medications RESULTS No Results PROCEDURES No Known procedures INSTRUCTIONS MEDICATIONS ADMINISTERED No Known Medications MEDICAL (GENERAL) HISTORY Type Description Date Medical History Hypertension Medical History Chemical stress test neg for ischemia 05/2016 Medical History Bronchitis as a kid Hospitalization History hypertension 2xs in ICU for 2 days 2014 Hospitalization History HTN 2013
--- OUTSIDE RECORDS SUMMARY | 2018-02-08 23:51 | XMS REPORT ---
Author Author ROBERT PLASCENCIA Organization [facility] Address [address] [place] [address] Care Team Providers Care Lunchroom Food Service Supervisor Name Role Phone ROBERT PLASCENCIA Unavailable PROBLEMS Type Condition ICD9-CM Code NGE89-AJ Code Onset Dates Condition Status SNOMED Code Problem Left sided sciatica M54.32 Active 29056664 Problem Seasonal allergic rhinitis due to pollen J30.1 Active 77479345 Problem Pulmonary hypertension I27.2 Active 38009179 Problem Essential hypertension I10 Active 79783060 Problem Drug-induced erectile dysfunction N52.2 Active 795386024 Problem Other secondary hypertension I15.8 Active 21654775 ALLERGIES No Information ENCOUNTERS Encounter Location Date Diagnosis [place] [address] 40077- 5384 Oct, Essential hypertension I10 ; Facial swelling R22.0 ; Trochanteric bursitis, left hip M70.62 and Left sided sciatica M54.32 [place] [id number] [place] [address] 24674- 0914 Oct, Essential hypertension I10 [place] [id number] [place] [address] 73553- 8455 Aug, Essential hypertension I10 [place] [id number] [place] [address] 88229- 7687 Aug, Essential hypertension I10 [place] [address] 97381- 8769 Jul, [place] [address] 50597- 8687 June, [place] [address] 86508- 4977 May, Essential hypertension I10 [facility] [address] [place] [address] 31453- 2768 May, [facility] [id number] [place] [address] [id number] May, Dental caries K02.9 [facility] [id number] [place] [address] [id number] May, Dental examination Z01.20 [facility] [id number] [place] [address] 59102- 9581 May, Dental examination Z01.20 [facility] [id number] [place] [address] 912015- 7646 May, Facial swelling R22.0 [facility] [id number] [place] [address] 21877- 7994 May, [facility] [id number] [place] [address] 14659- 8422 Apr, Essential hypertension I10 [facility] [id number] [place] [address] 62102- 5347 Mar, Essential hypertension I10 and Acute superficial gastritis without hemorrhage K29.00 [facility] [id number] [place] [address] 25646- 5299 Feb, [facility] [id number] [place] [address] 24317- 5579 Feb, Essential hypertension I10 [facility] [address] [place] [address] 20456- 7178 Feb, [facility] [id number] [place] [address] 90043- 3019 Jan, [facility] [id number] [place] [address] 13963 -7434 Jan, Facial swelling R22.0 [facility] [id number] [place] [address] 32086- 0501 Dec, Essential hypertension I10 [facility] [address] [address]- 2314 Dec, Essential hypertension I10 [facility] [address] [place] [address] [phone]- 3301 Nov, [facility] [address] [address]- 0340 Nov, Essential hypertension I10 and Subconjunctival hemorrhage of right eye H11.31 [facility] [address], [place] [address] -6205 Nov, Essential hypertension I10 and Subconjunctival hemorrhage of right eye H11.31 [facility] [address] [address]- 1915 Sep, Essential hypertension I10 [facility] [id number] [place] [address] 90987- 2680 Jul, Seasonal allergic rhinitis due to pollen J30.1 [facility] [address], [place] [address]- 1016 Jul, [facility] [address] [place] [address] 17092- 2106 May, [facility] [id number] [place] [address] [id number] May, [facility] [address] [place] [address] 76209- 1031 Apr, Essential hypertension I10 ; Seasonal allergic rhinitis due to pollen J30.1 and Drug-induced erectile dysfunction N52.2 [facility] [address] [place] [address] 56872- 3794 Apr, Essential hypertension I10 [facility] [address] [address]- 4968 Mar, [facility] [id number] [place] [address] 59018- 1616 Mar, Chest discomfort R07.89 ; Shortness of breath R06.02 ; Tobacco abuse Z72.0 ; Other secondary hypertension I15.8 ; Pulmonary hypertension I27.2 and Essential hypertension I10 [facility] [address] [place] [address] 75570- 2875 Feb, Essential hypertension I10 and Tobacco abuse Z72.0 [facility] [id number] [place] [address] 70011- 1301 Feb, [facility] [id number] [place] [address] 61360- 9614 Feb, Essential hypertension I10 [facility] [id number] [place] [address] 29474- 3533 Jan, Essential hypertension I10 [facility] [id number] [place] [address] [id number] Jan, Dental examination Z01.20 and Dental caries K02.9 [facility] [id number] [place] [address] 61144- 7867 Jan, [facility] [id number] [place] [address] 24586- 0893 Jan, [facility] [id number] [place] [address] 91115- 5055 Jan, Essential hypertension I10 [facility] [id number] [place] [address] 33675- 6924 Jan, Essential hypertension I10 [facility] [address] [place] [address] 87520- 9375 Jan, [facility] [id number] [place] [address] 94467- 9026 Jan, [facility] [id number] [place] [address] 01346- 5094 Jan, [facility] [id number] [place] [address] 51764- 6056 Jan, [facility] [address] [facility] [id number] [place] [address]- 5416 Jan, Hypertensive crisis I16.9 and Encounter to establish care Z76.89 [facility] [address] [facility] [id number] [place] [address]- 6016 Dec, IMMUNIZATIONS No Known Immunizations SOCIAL HISTORY Never Assessed REASON FOR VISIT Repository Medication PLAN OF CARE VITAL SIGNS MEDICATIONS Medication Instructions Dosage Frequency Start Date End Date Duration Status Amlodipine Besylate 10 MG Orally Once a day 1 tablet 24h 30 days Active Lisinopril 40 mg Orally Once a day 1 tablet 24h Jan, 90 days Active RESULTS No Results PROCEDURES No Known procedures INSTRUCTIONS MEDICATIONS ADMINISTERED No Known Medications MEDICAL (GENERAL) HISTORY Type Description Date Medical History Hypertension Medical History Chemical stress test neg for ischemia 05/2016 Medical History Bronchitis as a kid Hospitalization History hypertension 2xs in ICU for 2 days 2014 Hospitalization History HTN 2013
--- OUTSIDE RECORDS SUMMARY | 2018-02-08 23:51 | XMS REPORT ---
Author Author ROBERT PLASCENCIA Organization [facility] [place] Address [address] [place] [address] Care Team Providers Care Development Editor Name Role Phone ROBERT PLASCENCIA Unavailable PROBLEMS Type Condition ICD9-CM Code GLZ42-SL Code Onset Dates Condition Status SNOMED Code Problem Drug-induced erectile dysfunction N52.2 Active 931840354 Problem Seasonal allergic rhinitis due to pollen J30.1 Active 97873368 Problem Essential hypertension I10 Active 13961375 Problem Other secondary hypertension I15.8 Active 63605575 Problem Pulmonary hypertension I27.2 Active 76651685 ALLERGIES No Information ENCOUNTERS Encounter Location Date Diagnosis [facility] [place] [id number] [place] [address] 72658- 8639 Oct, [facility] [place] [id number] [place] [address] 40658- 5134 Aug, Essential hypertension I10 [facility] [place] [id number] [place] [address] 20647- 6786 Aug, Essential hypertension I10 [facility] [place] [id number] [place] [address] 97416- 4912 Jul, [facility] [place] [id number] [place] [address] 02545- 3047 June, [facility] [place] [id number] [place] [address] 93294- 7791 May, Essential hypertension I10 [facility] [place] [id number] [place] [address] 00786- 0192 May, [facility] [id number] [place] [address] [id number] May, Dental caries K02.9 [facility] [address] [id number] 16 May, 2017 Dental examination Z01.20 [facility] [place] [id number] [place] [address] 10956- 2941 16 May, 2017 Dental examination Z01.20 [facility] [place] [id number] [place] [address] 79945- 2874 16 May, 2017 Facial swelling R22.0 [facility] [place] [id number] [place] [address] 51041- 2849 04 May, 2017 [facility] [place] [id number] [place] [address] 29858- 1039 Apr, Essential hypertension I10 [facility] [place] [id number] [place] [address] 35036- 9234 07 Mar, 2017 Essential hypertension I10 and Acute superficial gastritis without hemorrhage K29.00 [facility] [place] [id number] [place] [address] 63570- 4763 Feb, [facility] [place] [id number] [place] [address] 40412- 7324 Feb, Essential hypertension I10 [facility] [place] [id number] [place] [address] [phone]- [phone] Feb, [facility] [place] [id number] [place] [address] 32849- 9799 Jan, [facility] [id number] [place] [address] 46529 -[phone] Jan, Facial swelling R22.0 [facility] [place] [id number] [place] [address] 28362- 8408 Dec, Essential hypertension I10 [facility] [place] [id number] [place] [address] 30789- 1767 Dec, Essential hypertension I10 [facility] [place] [id number] [place] [address] 10180- 3481 Nov, [facility] [place] [address] [address] 9310 Nov, Essential hypertension I10 and Subconjunctival hemorrhage of right eye H11.31 [facility] [id number] [place] [address] 47789 -[phone] Nov, Essential hypertension I10 and Subconjunctival hemorrhage of right eye H11.31 [facility] [place] [id number] [place] [address] 43795- 6158 Sep, Essential hypertension I10 [place] [id number] [place] [address] 26284- 2468 Jul, Seasonal allergic rhinitis due to pollen J30.1 [place] [id number] [place] [address] 35969- 2245 Jul, [place] [id number] [place] [address] 61161- 5562 May, [facility] [address] [id number] May, [place] [id number] [place] [address] 78356- 0794 Apr, Essential hypertension I10 ; Seasonal allergic rhinitis due to pollen J30.1 and Drug-induced erectile dysfunction N52.2 [place] [id number] [place] [address] 83303- 0417 Apr, Essential hypertension I10 [place] [id number] [place] [address] 73406- 6407 Mar, [facility] [place] [id number] [place] [address] 62528- 2267 Mar, Chest discomfort R07.89 ; Shortness of breath R06.02 ; Tobacco abuse Z72.0 ; Other secondary hypertension I15.8 ; Pulmonary hypertension I27.2 and Essential hypertension I10 [place] [id number] [place] [address] 11307- 4781 Feb, Essential hypertension I10 and Tobacco abuse Z72.0 [facility] [place] [id number] [address] 6716 Feb, [facility] [place] [id number] [place] [address] 09589- 9584 Feb, Essential hypertension I10 [facility] [place] [id number] [place] [address] 77653- 8410 Jan, Essential hypertension I10 [facility] [id number] [place] [address] [id number] Jan, Dental examination Z01.20 and Dental caries K02.9 [facility] [place] [id number] [place] [address] 34951- 4193 Jan, [facility] [place] [id number] [place] [address] 31072- [phone] Jan, [facility] [place] [id number] [place] [address] 48951- 9633 Jan, Essential hypertension I10 [facility] [place] [id number] [place] [address] 48881- 0623 Jan, Essential hypertension I10 [facility] [place] [id number] [place] [address] 42231- 6534 Jan, [facility] [place] [id number] [place] [address] 25111- 6961 Jan, [facility] [place] [id number] [place] [address] 84724- 0603 Jan, [facility] [place] [id number] [place] [address] 97369- 7844 Jan, [facility] [place] [id number] [place] [address] 57444- 3463 Jan, Hypertensive crisis I16.9 and Encounter to establish care Z76.89 [facility] [place] [id number] [place] [address] 40070- 6160 21 Nov, 2016 IMMUNIZATIONS No Known Immunizations SOCIAL HISTORY Never Assessed REASON FOR VISIT Repository Medication PLAN OF CARE VITAL SIGNS MEDICATIONS Medication Instructions Dosage Frequency Start Date End Date Duration Status Carvedilol 25 MG Orally 2 times a day 1 tablet 12h 90 days Active HydrALAZINE HCl 100 MG Orally 2 times a day 1 tablet with food 12h Nov, 90 days Active RESULTS No Results PROCEDURES No Known procedures INSTRUCTIONS MEDICATIONS ADMINISTERED No Known Medications MEDICAL (GENERAL) HISTORY Type Description Date Medical History Hypertension Medical History Chemical stress test neg for ischemia 05/2016 Medical History Bronchitis as a kid Hospitalization History hypertension 2xs in ICU for 2 days 2014 Hospitalization History HTN 2013
--- OUTSIDE RECORDS SUMMARY | 2018-02-08 23:51 | XMS REPORT ---
Author Author ROBERT PLASCENCIA Organization [facility] Address [address] [place] [address] Care Team Providers Care Polystyrene Molding Machine Tender Name Role Phone ROBERT PLASCENCIA Unavailable PROBLEMS Type Condition ICD9-CM Code UEQ61-QK Code Onset Dates Condition Status SNOMED Code Problem Drug-induced erectile dysfunction N52.2 Active 780990148 Problem Seasonal allergic rhinitis due to pollen J30.1 Active 53739439 Problem Essential hypertension I10 Active 79344120 Problem Other secondary hypertension I15.8 Active 78577265 Problem Pulmonary hypertension I27.2 Active 07352257 ALLERGIES No Information ENCOUNTERS Encounter Location Date Diagnosis [facility] [id number] [place] [address] 96810- 9589 Oct, [facility] [id number] [place] [address] 70464- 8082 Aug, Essential hypertension I10 [facility] [id number] [place] [address] 90639- 8161 Aug, Essential hypertension I10 [facility] [id number] [place] [address] 63158- 0914 Jul, [facility] [id number] [place] [address] 28159- 1470 June, [facility] [id number] [place] [address] 42497- 6460 May, Essential hypertension I10 [facility] [id number] [place] [address] 17975- 9227 May, [facility] [id number] [place] [address] [id number] May, Dental caries K02.9 [facility] [address] [id number] 16 May, 2017 Dental examination Z01.20 [facility] [id number] [place] [address] 33348- 7673 16 May, 2017 Dental examination Z01.20 [facility] [id number] [place] [address] 69627- 6958 16 May, 2017 Facial swelling R22.0 [facility] [id number] [place] [address] 11863- 9769 04 May, 2017 [facility] [id number] [place] [address] 67799- 6223 Apr, Essential hypertension I10 [facility] [id number] [place] [address] 06105- 4901 07 Mar, 2017 Essential hypertension I10 and Acute superficial gastritis without hemorrhage K29.00 [facility] [id number] [place] [address] 74499- 3916 Feb, [facility] [id number] [place] [address] 88289- 0837 Feb, Essential hypertension I10 [facility] [id number] [place] [address] 07559- 2046 Feb, [facility] [id number] [place] [address] 53816- 2072 Jan, [facility] [id number] [place] [address] 05215 -2517 Jan, Facial swelling R22.0 [facility] [id number] [place] [address] 19212- 2628 Dec, Essential hypertension I10 [facility] [id number] [place] [address] 64076- 0294 Dec, Essential hypertension I10 [facility] [id number] [place] [address] 25001- 7783 Nov, [facility] [address], [place] [address]- 1730 Nov, Essential hypertension I10 and Subconjunctival hemorrhage of right eye H11.31 [facility] [id number] [place] [address] 60928 -7054 Nov, Essential hypertension I10 and Subconjunctival hemorrhage of right eye H11.31 [facility] [id number] [place] [address] 34422- 9772 Sep, Essential hypertension I10 [place] [id number] [place] [address] 70807- 5176 Jul, Seasonal allergic rhinitis due to pollen J30.1 [place] [id number] [place] [address] 87725- 1944 Jul, [place] [id number] [place] [address] 98967- 9774 May, [facility] [address] [id number] May, [place] [id number] [place] [address] 32161- 0558 Apr, Essential hypertension I10 ; Seasonal allergic rhinitis due to pollen J30.1 and Drug-induced erectile dysfunction N52.2 [place] [id number] [place] [address] 53503- 0322 Apr, Essential hypertension I10 [place] [id number] [place] [address] 61380- 8347 Mar, [facility] [id number] [place] [address] 36792- 5291 Mar, Chest discomfort R07.89 ; Shortness of breath R06.02 ; Tobacco abuse Z72.0 ; Other secondary hypertension I15.8 ; Pulmonary hypertension I27.2 and Essential hypertension I10 [place] [id number] [place] [address] 40647- 3071 Feb, Essential hypertension I10 and Tobacco abuse Z72.0 [facility] [id number] [address]- 3480 Feb, [facility] [id number] [place] [address] 91197- 9502 Feb, Essential hypertension I10 [facility] [id number] [place] [address] 48962- 4412 Jan, Essential hypertension I10 [facility] [id number] [place] [address] [id number] Jan, Dental examination Z01.20 and Dental caries K02.9 [facility] [id number] [place] [address] 36366- 2128 Jan, [facility] [id number] [place] [address] 49168- 6936 Jan, [facility] [id number] [place] [address] 49196- 0096 Jan, Essential hypertension I10 [facility] [id number] [place] [address] 07668- 8155 Jan, Essential hypertension I10 [facility] [id number] [place] [address] 59083- 3612 Jan, [facility] [id number] [place] [address] 24318- 1524 Jan, [facility] [id number] [place] [address] 98762- 4723 Jan, [facility] [id number] [place] [address] 43722- 3968 Jan, [facility] [id number] [place] [address] 26567- 9850 Jan, Hypertensive crisis I16.9 and Encounter to establish care Z76.89 [facility] [id number] [place] [address] 15801- 3400 21 Nov, 2016 IMMUNIZATIONS No Known Immunizations SOCIAL HISTORY Never Assessed REASON FOR VISIT Repository Medication PLAN OF CARE VITAL SIGNS MEDICATIONS Medication Instructions Dosage Frequency Start Date End Date Duration Status Lisinopril 40 MG Orally Once a day 1 tablet 24h Jan, 30 days Active Lipitor 40 mg Orally Once a day 1 tablet 24h 90 days Active Amlodipine Besylate 10 MG Orally Once [...]
--- OUTSIDE RECORDS SUMMARY | 2018-02-08 23:52 | XMS REPORT ---
Author Author EVERETT CASTAÑEDA Organization [facility] Address [address] [place] [address] Care Team Providers Care Hot Box Spotter Name Role Phone EVERETT CASTAÑEDA Unavailable PROBLEMS Type Condition ICD9-CM Code LKA17-ZE Code Onset Dates Condition Status SNOMED Code Problem Drug-induced erectile dysfunction N52.2 Active 805085470 Problem Seasonal allergic rhinitis due to pollen J30.1 Active 34719302 Problem Essential hypertension I10 Active 67985470 Problem Other secondary hypertension I15.8 Active 44114525 Problem Pulmonary hypertension I27.2 Active 95357369 ALLERGIES Substance Reaction Event Type Date Status Ibuprofen PATIENT TO AVOID DUE TO KIDNEYS Drug Allergy May, Active ENCOUNTERS Encounter Location Date Diagnosis [facility] [place] [id number] [place] [address] 45064- 0681 Sep, [facility] [place] [address] 08603- 8376 Aug, Essential hypertension I10 [facility] [place] [id number] [place] [address] 79013- 4676 Aug, Essential hypertension I10 [facility] [place] [id number] [place] [address] 11949- 4641 Jul, [facility] [place] [id number] [place] [address] 78397- 0330 June, [facility] [place] [address] 40182- 4352 May, Essential hypertension I10 [facility] [place] [id number] [place] [address] 71239- 1859 May, [facility] [id number] [place] [address] [id number] May, Dental caries K02.9 [facility] [address] [id number] May, Dental examination Z01.20 [facility] [place] [id number] [place] [address] 10305- 1598 May, Dental examination Z01.20 [facility] [place] [id number] [place] [address] 78157- 6614 May, Facial swelling R22.0 [facility] [place] [id number] [place] [address] 06422- 0455 May, [facility] [place] [id number] [place] [address] 29618- 4298 Apr, Essential hypertension I10 [facility] [place] [id number] [place] [address] 29994- 5329 Mar, Essential hypertension I10 and Acute superficial gastritis without hemorrhage K29.00 [facility] [place] [id number] [place] [address] 12341- 1442 Feb, [facility] [place] [id number] [place] [address] 41739- 7896 Feb, Essential hypertension I10 [facility] [place] [id number] [place] [address] 51524- 8588 Feb, [facility] [place] [id number] [place] [address] 39267- 0929 Jan, [facility] [id number] [place] [address] 07462 -8525 Jan, Facial swelling R22.0 [facility] [place] [id number] [place] [address] 61355- 8725 Dec, Essential hypertension I10 [facility] [place] [id number] [place] [address] 50520- 0346 Dec, Essential hypertension I10 [facility] [place] [id number] [place] [address] 98249- 8110 Nov, [facility] [place] [address] [address] 7486 Nov, Essential hypertension I10 and Subconjunctival hemorrhage of right eye H11.31 [facility] [address], [place] [address] Nov, Essential hypertension I10 and Subconjunctival hemorrhage of right eye H11.31 [facility] [place] [id number] [place] [address] 67464- 7432 Sep, Essential hypertension I10 [facility] [place] [id number] [place] [address] 97334- 4099 Jul, Seasonal allergic rhinitis due to pollen J30.1 [facility] [place] [id number] [place] [address] 09014- 8718 Jul, [facility] [place] [id number] [place] [address] 33957- 7737 May, [facility] [id number] [place] [address] [phone] May, [facility] [place] [id number] [place] [address] 03713- 8828 Apr, Essential hypertension I10 ; Seasonal allergic rhinitis due to pollen J30.1 and Drug-induced erectile dysfunction N52.2 [facility] [place] [address] [place] [address] 51535- 3914 Apr, Essential hypertension I10 [facility] [place] [address] [place] [address] 98898- 3675 Mar, [facility] [place] [id number] [place] [address] 11882- 0877 Mar, Chest discomfort R07.89 ; Shortness of breath R06.02 ; Tobacco abuse Z72.0 ; Other secondary hypertension I15.8 ; Pulmonary hypertension I27.2 and Essential hypertension I10 [facility] [place] [id number] [address] 7285 Feb, Essential hypertension I10 and Tobacco abuse Z72.0 [facility] [place] [id number] [place] [address] 03441- 4324 Feb, [facility] [place] [id number] [place] [address] 68386- 2766 Feb, Essential hypertension I10 [facility] [place] [id number] [place] [address] 40544- 1737 Jan, Essential hypertension I10 [facility] [address] [place] [address] [id number] Jan, Dental examination Z01.20 and Dental caries K02.9 [facility] [place] [id number] [place] [address] 10174- 3411 Jan, [facility] [place] [id number] [place] [address] 64826- 3648 Jan, [facility] [place] [id number] [place] [address] 38373- 4307 Jan, Essential hypertension I10 [facility] [place] [id number] [place] [address] 27318 2545 Jan, Essential hypertension I10 [facility] [place] [id number] [place] [address] 49432- 7206 Jan, [facility] [place] [id number] [place] [address] 76681- 9920 Jan, [facility] [place] [id number] [place] [address] 59122- 254 Jan, [facility] [place] [id number] [place] [address] 70088- 9118 Jan, [facility] [place] [address] [place] [address] 64431- 4275 05 Jan, 2016 Hypertensive crisis I16.9 and Encounter to establish care Z76.89 [facility] [place] [id number] [address] Dec, IMMUNIZATIONS No Known Immunizations SOCIAL HISTORY Never Assessed REASON FOR VISIT 1 hr te per dds PLAN OF CARE Activity Details Follow Up prn Reason:LUIS A VITAL SIGNS Height 72 in 2017-06-03 Blood pressure systolic 142 mmHg 2017-06-03 Blood pressure diastolic 74 mmHg 2017-06-03 MEDICATIONS Medication Instructions Dosage Frequency Start Date End Date Duration Status HydrALAZINE HCl 100 MG Orally 2 times a day 1 tablet with food 12h Nov, 90 days Active Magnesium Oxide 400 MG Orally Once a day 1 tablet with food 24h Active Lipitor 40 mg Orally Once a day 1 tablet 24h 90 days Active Aspirin EC 81 MG Orally Once a day 1 tablet 24h 2 Mar, 2018 90 days Active Chlorthalidone 25 MG Orally Once a day 1 tablet in the morning 24h 90 days Active Clonidine HCl 0.1 MG Orally Once a day 1 tablet at bedtime 24h 6 Months Active Carvedilol 25 MG Orally 2 times a day 1 tablet 12h Not-Taking Tucumcari 7.5-325 MG Orally every 6 hrs 1 tablet as needed 6h May, May, 3 days Active Amoxicillin 500 mg Orally 2 times a day 2 capsule 12h 16 May, 2017May 10 day(s) Active Fplwypfp-EMB-1 Active Atenolol 50 MG Orally 2 times a day 1 tablet 12h Jan, Not- Taking Lisinopril 40 MG Orally Once a day 1 tablet 24h 09 Jan, 2016 90 days Active Amlodipine Besylate 10 MG Orally Once a day 1 tablet 24h 90 days Active Loratadine 10 MG Orally Once a day 1 tablet 24h Apr, 30 days Not-Taking RESULTS No Results PROCEDURES Procedure Date Ordered Result Body Site EXTRAC ERUPTED TOOTH/EXPOSED ROOT June 03, 2017 EXTRAC ERUPTED TOOTH/EXPOSED ROOT June 03, 2017 SURG REMOVAL ERUPTED TOOTH June 03, 2017 EXTRAC ERUPTED TOOTH/EXPOSED ROOT June 03, 2017 Billing Notes on claim June 03, 2017 INSTRUCTIONS MEDICATIONS ADMINISTERED No Known Medications MEDICAL (GENERAL) HISTORY Type Description Date Medical History Hypertension Medical History Chemical stress test neg for ischemia 05/2016 Medical History Bronchitis as a kid Hospitalization History hypertension 2xs in ICU for 2 days 2014 Hospitalization History HTN 2013
--- OUTSIDE RECORDS SUMMARY | 2018-02-08 23:52 | XMS REPORT ---
Author Author DIEGO MORALES [facility] Address [address] [place] [address] Care Team Providers Care Assembler Trim Name Role Phone DIEGO MORALES Unavailable PROBLEMS Type Condition ICD9-CM Code YCH85-AD Code Onset Dates Condition Status SNOMED Code Problem Drug-induced erectile dysfunction N52.2 Active 012263449 Problem Seasonal allergic rhinitis due to pollen J30.1 Active 10855574 Problem Essential hypertension I10 Active 74727441 Problem Other secondary hypertension I15.8 Active 49933204 Problem Pulmonary hypertension I27.2 Active 74060120 ALLERGIES No Information ENCOUNTERS Encounter Location Date Diagnosis [facility] [id number] [place] [address] 73635- 5050 Sep, [facility] [id number] [place] [address] 22303- 3421 Aug, Essential hypertension I10 [facility] [id number] [place] [address] 36963- 3158 Aug, Essential hypertension I10 [facility] [id number] [place] [address] 50943- 8799 Jul, [facility] [id number] [place] [address] 41052- 2565 June, [facility] [id number] [place] [address] 54060- 3070 May, Essential hypertension I10 [facility] [id number] [place] [address] 69480- 0626 May, [facility] [id number] [place] [address] [phone] May, Dental caries K02.9 [facility] [address] [id number] 16 May, 2017 Dental examination Z01.20 [facility] [id number] [place] [address] 51314- 7492 16 May, 2017 Dental examination Z01.20 [facility] [id number] [place] [address] 62225- 3709 16 May, 2017 Facial swelling R22.0 [facility] [id number] [place] [address] 26899- 5853 04 May, 2017 [facility] [id number] [place] [address] 20045- 0594 Apr, Essential hypertension I10 [facility] [id number] [place] [address] 44605- 4026 07 Mar, 2017 Essential hypertension I10 and Acute superficial gastritis without hemorrhage K29.00 [facility] [id number] [place] [address] 40347- 8585 Feb, [facility] [id number] [place] [address] 24000- 7885 Feb, Essential hypertension I10 [facility] [id number] [place] [address] 74666- 9338 Feb, [facility] [id number] [place] [address] 78275- 5564 Jan, [facility] [id number] [place] [address] 09050 -0935 Jan, Facial swelling R22.0 [facility] [id number] [place] [address] 36925- 3705 Dec, Essential hypertension I10 [facility] [id number] [place] [address] 87402- 7454 Dec, Essential hypertension I10 [facility] [id number] [place] [address] 27843- 1303 Nov, [facility] [address] [address]- 4169 Nov, Essential hypertension I10 and Subconjunctival hemorrhage of right eye H11.[address] [facility] [id number] [place] [address] 87018 -4939 Nov, Essential hypertension I10 and Subconjunctival hemorrhage of right eye H11.31 [facility] [id number] [place] [address] 74660- 4682 Sep, Essential hypertension I10 [facility] [id number] [place] [address] 29038- 1216 Jul, Seasonal allergic rhinitis due to pollen J30.1 [facility] [id number] [place] [address] 28273- 1021 Jul, [facility] [id number] [place] [address] 37841- 0779 May, [facility] [id number] [place] [address] [phone] May, [facility] [id number] [place] [address] 41418- 3392 Apr, Essential hypertension I10 ; Seasonal allergic rhinitis due to pollen J30.1 and Drug-induced erectile dysfunction N52.2 [facility] [address] [place] [address] 86103- 9228 Apr, Essential hypertension I10 [facility] [id number] [place] [address] 40666- 2326 Mar, [facility] [address] [place] [address] 18836- 5357 Mar, Chest discomfort R07.89 ; Shortness of breath R06.02 ; Tobacco abuse Z72.0 ; Other secondary hypertension I15.8 ; Pulmonary hypertension I27.2 and Essential hypertension I10 [facility] [id number] [place] [address] 05779- 9078 Feb, Essential hypertension I10 and Tobacco abuse Z72.0 [facility] [id number] [place] [address] 89426- 3565 Feb, [facility] [id number] [place] [address] 98042- 2632 Feb, Essential hypertension I10 [facility] [id number] [place] [address] 71333- 5390 Jan, Essential hypertension I10 [facility] [id number] [place] [address] [phone] Jan, Dental examination Z01.20 and Dental caries K02.9 [facility] [id number] [place] [address] 49792- 1321 Jan, [facility] [id number] [place] [address] 08339- 3422 Jan, [facility] [id number] [place] [address] 05915- 9195 Jan, Essential hypertension I10 [facility] [id number] [place] [address] 12386- 4460 Jan, Essential hypertension I10 [facility] [id number] [place] [address] 00258- 2060 Jan, [facility] [id number] [place] [address] 23866- 7059 Jan, [facility] [id number] [place] [address] 05257- 1560 Jan, [facility] [id number] [place] [address] 78260- 8915 Jan, [facility] [id number] [place] [address] 96964- 8055 Jan, Hypertensive crisis I16.9 and Encounter to establish care Z76.89 [facility] [id number] [place] [address] 19076- 7885 Dec, IMMUNIZATIONS No Known Immunizations SOCIAL HISTORY Never Assessed REASON FOR VISIT DENTAL PAIN PLAN OF CARE VITAL SIGNS MEDICATIONS Unknown Medications RESULTS No Results PROCEDURES Procedure Date Ordered Result Body Site SCREENING OF A PATIENT May 30, 2017 Billing Notes on claim May 27, 2017 INSTRUCTIONS MEDICATIONS ADMINISTERED No Known Medications MEDICAL (GENERAL) HISTORY Type Description Date Medical History Hypertension Medical History Chemical stress test neg for ischemia 05/2016 Medical History Bronchitis as a kid Hospitalization History hypertension 2xs in ICU for 2 days 2014 Hospitalization History HTN 2013
--- OUTSIDE RECORDS SUMMARY | 2018-02-08 23:52 | XMS REPORT ---
Author Author ROBERT PLASCENCIA Organization [facility] Address [address] [place] [address] Care Team Providers Care Solicitor Patent Name Role Phone ROBERT PLASCENCIA Unavailable PROBLEMS Type Condition ICD9-CM Code [id number] Code Onset Dates Condition Status SNOMED Code Problem Drug-induced erectile dysfunction N52.2 Active 339523816 Problem Seasonal allergic rhinitis due to pollen J30.1 Active 94393930 Problem Essential hypertension I10 Active 78381012 Problem Other secondary hypertension I15.8 Active 54735777 Problem Pulmonary hypertension I27.2 Active 82658616 ALLERGIES No Information ENCOUNTERS Encounter Location Date Diagnosis [facility] [id number] [place] [address] 08874- 4416 Sep, [facility] [id number] [place] [address] 07479- 0101 Aug, Essential hypertension I10 [facility] [id number] [place] [address] 95833- 2754 Aug, Essential hypertension I10 [facility] [id number] [place] [address] 52748- 6488 Jul, [facility] [id number] [place] [address] 39367- 1782 June, [facility] [id number] [place] [address] 92467- 7288 May, Essential hypertension I10 [facility] [id number] [place] [address] 75500- 0507 May, [facility] [id number] [place] [address] [id number] May, Dental caries K02.9 [facility] [address] [id number] 16 May, 2017 Dental examination Z01.20 [facility] [id number] [place] [address] 92567- 9501 16 May, 2017 Dental examination Z01.20 [facility] [id number] [place] [address] 53060- 4002 16 May, 2017 Facial swelling R22.0 [facility] [id number] [place] [address] 61760- 7345 04 May, 2017 [facility] [id number] [place] [address] 92929- 2414 Apr, Essential hypertension I10 [facility] [id number] [place] [address] 30898- 8879 07 Mar, 2017 Essential hypertension I10 and Acute superficial gastritis without hemorrhage K29.00 [facility] [id number] [place] [address] 83045- 3063 Feb, [facility] [id number] [place] [address] 91658- 6401 Feb, Essential hypertension I10 [facility] [id number] [place] [address] 69480- 4917 Feb, [facility] [id number] [place] [address] 06116- 2954 Jan, [facility] [id number] [place] [address] 44564 -[phone] Jan, Facial swelling R22.0 [facility] [id number] [place] [address] 68454- 5506 Dec, Essential hypertension I10 [facility] [id number] [place] [address] 08694- 3516 Dec, Essential hypertension I10 [facility] [id number] [place] [address] 70113- 6225 Nov, [facility] [id number] [address] 9242 Nov, Essential hypertension I10 and Subconjunctival hemorrhage of right eye H11.31 [facility] [id number] [place] [address] [phone] -[phone] Nov, Essential hypertension I10 and Subconjunctival hemorrhage of right eye H11.31 [facility] [id number] [place] [address] 98702- 2305 Sep, Essential hypertension I10 [facility] [facility] [id number] [place] [address] 94570- 7231 Jul, Seasonal allergic rhinitis due to pollen J30.1 [place] [facility] [id number] [place] [address] 41859- 7896 Jul, [place] [facility] [id number] [place] [address] 28653- 9746 May, [facility] [address] [id number] May, [place] [id number] [place] [address] 03484- 5083 Apr, Essential hypertension I10 ; Seasonal allergic rhinitis due to pollen J30.1 and Drug-induced erectile dysfunction N52.2 [place] [id number] [place] [address] 68181- 2089 Apr, Essential hypertension I10 [place] [facility] [id number] [place] [address] 79288- 6821 Mar, [facility] [id number] [place] [address] 14267- 0694 Mar, Chest discomfort R07.89 ; Shortness of breath R06.02 ; Tobacco abuse Z72.0 ; Other secondary hypertension I15.8 ; Pulmonary hypertension I27.2 and Essential hypertension I10 [place] [facility] [id number] [place] [address] 81120- 9311 Feb, Essential hypertension I10 and Tobacco abuse Z72.0 [facility] [id number] [address]- 4476 Feb, [facility] [id number] [place] [address] 09679- 7823 Feb, Essential hypertension I10 [facility] [id number] [place] [address] 61359- 4395 Jan, Essential hypertension I10 [facility] [id number] [place] [address] [phone] Jan, Dental examination Z01.20 and Dental caries K02.9 [facility] [id number] [place] [address] 58040- 9455 Jan, [facility] [id number] [place] [address] 27144- 8005 Jan, [facility] [id number] [place] [address] 08155- 7393 Jan, Essential hypertension I10 [facility] [id number] [place] [address] 99056- 0536 Jan, Essential hypertension I10 [facility] [id number] [place] [address] 30824- 3826 Jan, [facility] [id number] [place] [address] 50703- 4348 Jan, [facility] [id number] [place] [address] 19266- 3045 Jan, [facility] [id number] [place] [address] 54824- 1534 Jan, [facility] [id number] [place] [address] 84154- 1085 Jan, Hypertensive crisis I16.9 and Encounter to establish care Z76.89 [facility] [id number] [place] [address] 85347- 6854 21 Nov, 2016 IMMUNIZATIONS No Known Immunizations SOCIAL HISTORY Never Assessed REASON FOR VISIT med refill PLAN OF CARE VITAL SIGNS MEDICATIONS Medication Instructions Dosage Frequency Start Date End Date Duration Status Lipitor 40 mg Orally Once a day 1 tablet 24h 90 days Active Lisinopril 40 MG Orally Once a day [...]
--- OUTSIDE RECORDS SUMMARY | 2018-02-08 23:52 | XMS REPORT ---
Author Author ROBERT PLASCENCIA Organization [facility] Address [address] [place] [address] Care Team Providers Care Esthetician Name Role Phone ROBERT PLASCENCIA Unavailable PROBLEMS Type Condition ICD9-CM Code [id number] Code Onset Dates Condition Status SNOMED Code Problem Drug-induced erectile dysfunction N52.2 Active 698591804 Problem Seasonal allergic rhinitis due to pollen J30.1 Active 99208428 Problem Essential hypertension I10 Active 35272269 Problem Other secondary hypertension I15.8 Active 68306662 Problem Pulmonary hypertension I27.2 Active 94293472 ALLERGIES No Information ENCOUNTERS Encounter Location Date Diagnosis [facility] [id number] [place] [address] 06264- 7162 Sep, [facility] [id number] [place] [address] 65747- 1651 Aug, Essential hypertension I10 [facility] [id number] [place] [address] 52567- 0443 Aug, Essential hypertension I10 [facility] [id number] [place] [address] 55734- 3748 Jul, [facility] [id number] [place] [address] 66914- 2567 June, [facility] [id number] [place] [address] 00820- 4844 May, Essential hypertension I10 [facility] [id number] [place] [address] 04889- 7886 May, [facility] [id number] [place] [address] [id number] May, Dental caries K02.9 [facility] [address] [id number] 16 May, 2017 Dental examination Z01.20 [facility] [id number] [place] [address] 52527- 4776 16 May, 2017 Dental examination Z01.20 [facility] [id number] [place] [address] 97733- 4177 16 May, 2017 Facial swelling R22.0 [facility] [id number] [place] [address] 70821- 8245 04 May, 2017 [facility] [id number] [place] [address] 08897- 3607 Apr, Essential hypertension I10 [facility] [id number] [place] [address] 79848- 8801 07 Mar, 2017 Essential hypertension I10 and Acute superficial gastritis without hemorrhage K29.00 [facility] [id number] [place] [address] 11491- 7010 Feb, [facility] [id number] [place] [address] 00923- 9846 Feb, Essential hypertension I10 [facility] [id number] [place] [address] 69017- 7034 Feb, [facility] [id number] [place] [address] 07067- 6067 Jan, [facility] [id number] [place] [address] 08512 -6415 Jan, Facial swelling R22.0 [facility] [id number] [place] [address] 96785- 3551 Dec, Essential hypertension I10 [facility] [id number] [place] [address] 42079- [phone] Dec, Essential hypertension I10 [facility] [id number] [place] [address] 24309- 9836 Nov, [facility] [address] [address]- 4316 Nov, Essential hypertension I10 and Subconjunctival hemorrhage of right eye H11.31 [facility] [id number] [place] [address] [phone] -[phone] Nov, Essential hypertension I10 and Subconjunctival hemorrhage of right eye H11.31 [facility] [id number] [place] [address] 83184- 6647 Sep, Essential hypertension I10 [place] [id number] [place] [address] 01944- 9175 Jul, Seasonal allergic rhinitis due to pollen J30.1 [place] [id number] [place] [address] 73425- 2834 Jul, [place] [id number] [place] [address] 47787- 3515 May, [facility] [address] [id number] May, [place] [id number] [place] [address] 58454- 4274 Apr, Essential hypertension I10 ; Seasonal allergic rhinitis due to pollen J30.1 and Drug-induced erectile dysfunction N52.2 [place] [id number] [place] [address] 36357- 7228 Apr, Essential hypertension I10 [place] [id number] [place] [address] 81318- 0990 Mar, [facility] [id number] [place] [address] 19534- 5627 Mar, Chest discomfort R07.89 ; Shortness of breath R06.02 ; Tobacco abuse Z72.0 ; Other secondary hypertension I15.8 ; Pulmonary hypertension I27.2 and Essential hypertension I10 [place] [id number] [place] [address] 56471- 6310 Feb, Essential hypertension I10 and Tobacco abuse Z72.0 [facility] [id number] [address]- 1680 Feb, [facility] [id number] [place] [address] 20281- 9582 Feb, Essential hypertension I10 [facility] [id number] [place] [address] 91183- 9820 Jan, Essential hypertension I10 [facility] [id number] [place] [address] [id number] Jan, Dental examination Z01.20 and Dental caries K02.9 [facility] [id number] [place] [address] 50003- 7619 Jan, [facility] [id number] [place] [address] 57011- 3868 Jan, [facility] [id number] [place] [address] 44719- 2800 Jan, Essential hypertension I10 [facility] [id number] [place] [address] 10304- 9136 Jan, Essential hypertension I10 [facility] [id number] [place] [address] 40197- 8376 Jan, [facility] [id number] [place] [address] 10270- 8254 Jan, [facility] [id number] [place] [address] 15936- 3239 Jan, [facility] [id number] [place] [address] 16083- 6988 Jan, [facility] [id number] [place] [address] 23342- 8067 Jan, Hypertensive crisis I16.9 and Encounter to establish care Z76.89 [facility] [id number] [place] [address] 46069- 5543 21 Nov, 2016 IMMUNIZATIONS No Known Immunizations SOCIAL HISTORY Never Assessed REASON FOR VISIT Blood pressure check-Melonie PEÑALOZA PLAN OF CARE VITAL SIGNS Height 72 in 2017-06-03 Blood pressure systolic 190 mmHg 2017-06-03 Blood pressure diastolic 110 mmHg 2017-06-03 MEDICATIONS Medication Instructions Dosage Frequency Start Date End Date Duration Status Lisinopril 40 MG Orally Once a day 1 tablet 24h 09 Jan, 2016 90 days Active Amoxicillin 500 mg Orally 2 times a day 2 capsule 12h 16 May, 2017May 10 day(s) Active Lipitor 40 mg Orally Once a day 1 tablet 24h 90 days Active Aspirin EC 81 MG Orally Once a day 1 tablet 24h 2 Mar, 2018 90 days Active Chlorthalidone 25 MG Orally Once a day 1 tablet in the morning 24h 90 days Active Carvedilol 25 MG Orally 2 times a day 1 tablet 12h Not-Taking Clonidine HCl 0.1 MG Orally Once a day 1 tablet at bedtime 24h 6 Months Active [place] 7.5-325 MG Orally every 6 hrs 1 tablet as needed 6h May, May, 3 days Active Ndikgefh-SLL-8 Active Magnesium Oxide 400 MG Orally Once a day 1 tablet with food 24h Active Atenolol 50 MG Orally 2 times a day 1 tablet 12h 12 Jan, 2016 Not- Taking HydrALAZINE HCl 100 MG Orally 2 times a day 1 tablet with food 12h Nov, 90 days Active Amlodipine Besylate 10 MG Orally Once a day 1 tablet 24h 90 days Active Loratadine 10 MG Orally Once a day 1 tablet 24h Apr, 30 days Not-Taking RESULTS No Results PROCEDURES No Known procedures INSTRUCTIONS MEDICATIONS ADMINISTERED No Known Medications MEDICAL (GENERAL) HISTORY Type Description Date Medical History Hypertension Medical History Chemical stress test neg for ischemia 05/2016 Medical History Bronchitis as a kid Hospitalization History hypertension 2xs in ICU for 2 days 2014 Hospitalization History HTN 2013
--- OUTSIDE RECORDS SUMMARY | 2018-02-08 23:52 | XMS REPORT ---
Author Author ROBERT PLASCENCIA Organization [facility] Address [address] [place] [address] Care Team Providers Care Labeler Name Role Phone ROBERT PLASCENCIA Unavailable PROBLEMS Type Condition ICD9-CM Code EDM58-EQ Code Onset Dates Condition Status SNOMED Code Problem Drug-induced erectile dysfunction N52.2 Active 772854440 Problem Seasonal allergic rhinitis due to pollen J30.1 Active 41196666 Problem Essential hypertension I10 Active 75530080 Problem Other secondary hypertension I15.8 Active 49556708 Problem Pulmonary hypertension I27.2 Active 06882963 ALLERGIES No Known Allergies ENCOUNTERS Encounter Location Date Diagnosis [facility] [id number] [place] [address] 49121- 0687 Sep, [facility] [id number] [place] [address] 07828- 1937 Aug, Essential hypertension I10 [facility] [id number] [place] [address] 72918- 8839 Aug, Essential hypertension I10 [facility] [id number] [place] [address] 12196- 8956 Jul, [facility] [id number] [place] [address] 65279- 1443 June, [facility] [id number] [place] [address] 23126- 0774 May, Essential hypertension I10 [facility] [id number] [place] [address] 75261- 8993 May, [facility] [id number] [place] [address] [id number] May, Dental caries K02.9 [facility] [address] [id number] 16 May, 2017 Dental examination Z01.20 [facility] [id number] [place] [address] 03298- 3307 16 May, 2017 Dental examination Z01.20 [facility] [id number] [place] [address] 65340- 3358 16 May, 2017 Facial swelling R22.0 [facility] [id number] [place] [address] 17136- 5438 04 May, 2017 [facility] [id number] [place] [address] 39457- 2323 Apr, Essential hypertension I10 [facility] [id number] [place] [address] 57412- 7887 07 Mar, 2017 Essential hypertension I10 and Acute superficial gastritis without hemorrhage K29.00 [facility] [id number] [place] [address] 90289- 3298 Feb, [facility] [id number] [place] [address] 22902- 3297 Feb, Essential hypertension I10 [facility] [id number] [place] [address] 63543- 5985 Feb, [facility] [id number] [place] [address] 32638- 1807 Jan, [facility] [id number] [place] [address] 05520 -5670 Jan, Facial swelling R22.0 [facility] [id number] [place] [address] 69631- 6933 Dec, Essential hypertension I10 [facility] [id number] [place] [address] 68692- 7741 Dec, Essential hypertension I10 [facility] [id number] [place] [address] 42909- 5942 Nov, [facility] [address] [address] 1337 Nov, Essential hypertension I10 and Subconjunctival hemorrhage of right eye H11.31 [facility] [id number] [place] [address] 21909 -5033 Nov, Essential hypertension I10 and Subconjunctival hemorrhage of right eye H11.31 [facility] [id number] [place] [address] 52192- 2380 Sep, Essential hypertension I10 [facility] [id number] [place] [address] 82802- 2422 Jul, Seasonal allergic rhinitis due to pollen J30.1 [facility] [id number] [place] [address] 06521- 9057 Jul, [facility] [id number] [place] [address] 67577- 4696 May, [facility] [address] [id number] May, [place] [facility] [id number] [place] [address] 79115- 8352 Apr, Essential hypertension I10 ; Seasonal allergic rhinitis due to pollen J30.1 and Drug-induced erectile dysfunction N52.2 [facility] [facility] [id number] [place] [address] 66868- 9669 Apr, Essential hypertension I10 [facility] [id number] [place] [address] 56800- 5339 Mar, [facility] [id number] [place] [address] 43142- 5472 Mar, Chest discomfort R07.89 ; Shortness of breath R06.02 ; Tobacco abuse Z72.0 ; Other secondary hypertension I15.8 ; Pulmonary hypertension I27.2 and Essential hypertension I10 [facility] [facility] [id number] [place] [address] 40721- 1425 Feb, Essential hypertension I10 and Tobacco abuse Z72.0 [facility] [id number] [address]- 0589 Feb, [facility] [id number] [place] [address] 75322- 1007 Feb, Essential hypertension I10 [facility] [id number] [place] [address] 36547- 1768 Jan, Essential hypertension I10 [facility] [id number] [place] [address] [id number] Jan, Dental examination Z01.20 and Dental caries K02.9 [facility] [id number] [place] [address] 05116- 3999 Jan, [facility] [id number] [place] [address] 23980- 8045 Jan, [facility] [id number] [place] [address] 34373- 2151 Jan, Essential hypertension I10 [facility] [id number] [place] [address] 32475- 5558 Jan, Essential hypertension I10 [facility] [id number] [place] [address] 97548- 0313 Jan, [facility] [id number] [place] [address] 05705- 3973 Jan, [facility] [id number] [place] [address] 59161- 5211 Jan, [facility] [id number] [place] [address] 32662- 3398 Jan, [facility] [id number] [place] [address] 93803- 6400 Jan, Hypertensive crisis I16.9 and Encounter to establish care Z76.89 [facility] [id number] [place] [address] 57514- 8314 21 Nov, 2016 IMMUNIZATIONS No Known Immunizations SOCIAL HISTORY Never Assessed REASON FOR VISIT PT has left fascial swelling that began yesterday and doesnt recall doing anything different with his lifestyle-Melonie PEÑALOZA PLAN OF CARE Activity Details Follow Up prn Reason: VITAL SIGNS Height 72 in 2017-05-27 Weight 225.2 lbs 2017-05-27 Temperature 98.7 degrees Fahrenheit 2017-05-27 Heart Rate 78 bpm 2017-05-27 Respiratory Rate 20 2017-05-27 BMI 30.54 kg/m2 2017-05-27 Blood pressure systolic 146 mmHg 2017-05-27 Blood pressure diastolic 84 mmHg 2017-05-27 MEDICATIONS Medication Instructions Dosage Frequency Start Date End Date Duration Status HydrALAZINE HCl 100 MG Orally 2 times a day 1 tablet with food 12h Nov, 90 days Active Clonidine HCl 0.1 MG Orally Once a day 1 tablet at bedtime 24h 6 Months Active Amlodipine Besylate 10 MG Orally Once a day 1 tablet 24h 90 days Active Carvedilol 25 MG Orally 2 times a day 1 tablet 12h Not-Taking Magnesium Oxide 400 MG Orally Once a day 1 tablet with food 24h Active Aspirin EC 81 MG Orally Once a day 1 tablet 24h 2 Mar, 2018 90 days Active Amoxicillin 500 mg Orally 2 times a day 2 capsule 12h May,May 10 day(s) Active Lisinopril 40 MG Orally Once a day 1 tablet 24h Jan, 90 days Active Lipitor 40 mg Orally Once a day 1 tablet 24h 90 days Active Chlorthalidone 25 MG Orally Once a day 1 tablet in the morning 24h 90 days Active Loratadine 10 MG Orally Once a day 1 tablet 24h Apr, 30 days Not-Taking Fboolhea-FPR-9 Active Atenolol 50 MG Orally 2 times a day 1 tablet 12h Jan, Not- Taking RESULTS No Results PROCEDURES No Known procedures INSTRUCTIONS MEDICATIONS ADMINISTERED No Known Medications MEDICAL (GENERAL) HISTORY Type Description Date Medical History Hypertension Medical History Chemical stress test neg for ischemia 05/2016 Medical History Bronchitis as a kid Hospitalization History hypertension 2xs in ICU for 2 days 2014 Hospitalization History HTN 2013
[2018-02-08 23:53] LABS: ALANINE AMINOTRANSFERASE 15 U/L (0-55); ALBUMIN 4.1 GM/DL (3.2-4.5); ALKALINE PHOSPHATASE 66 U/L (40-136); BILIRUBIN,TOTAL 0.3 MG/DL (0.1-1.0); BUN/CREATININE RATIO 9; CARBON DIOXIDE 19 MMOL/L (21-32); CHLORIDE 106 MMOL/L (98-107); CREATININE SERUM 1.49 MG/DL (0.60-1.30); GFR ESTIMATED 59; GLUCOSE 93 MG/DL (70-105); MAGNESIUM 2.3 MG/DL (1.8-2.4); POTASSIUM 3.7 MMOL/L (3.6-5.0); SODIUM 140 MMOL/L (135-145); TOTAL PROTEIN 7.7 GM/DL (6.4-8.2)
--- OUTSIDE RECORDS SUMMARY | 2018-02-08 23:53 | XMS REPORT ---
Author Author ROBERT PLASCENCIA [facility] Address [address] [place] [address] Care Team Providers Care Chef De Partie Name Role Phone ROBERT PLASCENCIA Unavailable PROBLEMS Type Condition ICD9-CM Code NCH83-PO Code Onset Dates Condition Status SNOMED Code Problem Drug-induced erectile dysfunction N52.2 Active 243277528 Problem Seasonal allergic rhinitis due to pollen J30.1 Active 85471797 Problem Essential hypertension I10 Active 21424431 Problem Other secondary hypertension I15.8 Active 57105357 Problem Pulmonary hypertension I27.2 Active 67523155 ALLERGIES No Information SOCIAL HISTORY Never Assessed PLAN OF CARE VITAL SIGNS MEDICATIONS Unknown Medications RESULTS No Results PROCEDURES No Known procedures IMMUNIZATIONS No Known Immunizations MEDICAL (GENERAL) HISTORY Type Description Date Medical History Hypertension Medical History Chemical stress test neg for ischemia 05/2016 Hospitalization History hypertension 2xs in ICU for 2 days 2014 Hospitalization History HTN 2013
--- OUTSIDE RECORDS SUMMARY | 2018-02-08 23:53 | XMS REPORT ---
Author Author ROBERT PLASCENCIA Organization [facility] Address [address] [place] [address] Care Team Providers Care Outsole Molder Name Role Phone ROBERT PLASCENCIA Unavailable PROBLEMS Type Condition ICD9-CM Code BZO06-KE Code Onset Dates Condition Status SNOMED Code Problem Drug-induced erectile dysfunction N52.2 Active 398330669 Problem Seasonal allergic rhinitis due to pollen J30.1 Active 87313910 Problem Essential hypertension I10 Active 90895119 Problem Other secondary hypertension I15.8 Active 45401517 Problem Pulmonary hypertension I27.2 Active 10153201 ALLERGIES No Information ENCOUNTERS Encounter Location Date Diagnosis [facility] [place] [address] 16597- 7064 Sep, [facility] [place] [address] 49087- 6993 Aug, Essential hypertension I10 [facility] [place] [address] 42580- 4916 Jul, [facility] [place] [id number] [place] [address] 72611- 1844 June, [facility] [place] [address] 83211- 0805 May, Essential hypertension I10 [facility] [place] [address] 23337- 5711 May, [facility] [address] [id number] May, Dental caries K02.9 [facility] [id number] [place] [address] [phone] May, Dental examination Z01.20 [facility] [place] [id number] [place] [address] 72025- 6922 16 May, 2017 Dental examination Z01.20 [facility] [place] [id number] [place] [address] 43816- 5996 May, Facial swelling R22.0 [facility] [place] [id number] [place] [address] 55554- 5661 04 May, 2017 [facility] [place] [id number] [place] [address] 99130- 6191 Apr, Essential hypertension I10 [facility] [place] [id number] [place] [address] 28042- 5308 Mar, Essential hypertension I10 and Acute superficial gastritis without hemorrhage K29.00 [facility] [place] [id number] [place] [address] 94045- 0165 Feb, [facility] [place] [id number] [place] [address] 78161- 9343 Feb, Essential hypertension I10 [facility] [place] [id number] [place] [address] 40190- 8551 Feb, [facility] [place] [id number] [place] [address] 50044- 0590 Jan, [facility] [id number] [place] [address] 86437 -[phone] Jan, Facial swelling R22.0 [facility] [place] [id number] [place] [address] 61948- 2784 Dec, Essential hypertension I10 [facility] [place] [id number] [place] [address] 12167- 0017 Dec, Essential hypertension I10 [facility] [place] [id number] [place] [address] 55391- 9178 Nov, [facility] [place] [address] [place] [address] 01060- 0965 Nov, Essential hypertension I10 and Subconjunctival hemorrhage of right eye H11.31 [facility] [address] [address] Nov, Essential hypertension I10 and Subconjunctival hemorrhage of right eye H11.31 [facility] [address] [address]- 7559 Sep, Essential hypertension I10 [facility] [id number] [place] [address] 84209- 4893 Jul, Seasonal allergic rhinitis due to pollen J30.1 [facility] [facility] [id number] [place] [address] 99777- 4623 Jul, [facility] [place] [id number] [place] [address] 08859- 2648 May, [facility] [id number] [place] [address] [phone] May, [facility] [place] [id number] [place] [address] 19304- 4668 Apr, Essential hypertension I10 ; Seasonal allergic rhinitis due to pollen J30.1 and Drug-induced erectile dysfunction N52.2 [facility] [place] [id number] [place] [address] 85464- 9829 Apr, Essential hypertension I10 [facility] [place] [id number] [place] [address] 61125- 5666 Mar, [facility] [place] [id number] [place] [address] 57408- 8059 Mar, Chest discomfort R07.89 ; Shortness of breath R06.02 ; Tobacco abuse Z72.0 ; Other secondary hypertension I15.8 ; Pulmonary hypertension I27.2 and Essential hypertension I10 [facility] [place] [id number] [place] [address] 42250- 4810 Feb, Essential hypertension I10 and Tobacco abuse Z72.0 [facility] [place] [id number] [place] [address] 79858- 2423 Feb, [facility] [place] [address] [address]- 4371 Feb, Essential hypertension I10 [facility] [address], [place] [address]- 4374 Jan, Essential hypertension I10 [facility] [id number] [id number] Jan, Dental examination Z01.20 and Dental caries K02.9 [facility] [address], [place] [address]- 9553 Jan, [facility] [id number] [place] [address] 22525- 5837 Jan, [facility] [place] [address] [place] [address] 56031- 2066 Jan, Essential hypertension I10 [facility] [place] [address] [place] [address] 96659- 6971 Jan, Essential hypertension I10 [facility] [address] [address]- 0936 Jan, [facility] [place] [address] [place] [address] 11296- 9331 Jan, [facility] [place] [address] [address]- 0557 Jan, [facility] [place] [address], [place] [address]- 9894 Jan, [facility] [address] [address]- 5956 Jan, Hypertensive crisis I16.9 and Encounter to establish care Z76.89 [facility] [address], [place] [address]- 7197 Dec, IMMUNIZATIONS No Known Immunizations SOCIAL HISTORY Never Assessed REASON FOR VISIT PLAN OF CARE VITAL SIGNS MEDICATIONS Unknown [...]
--- OUTSIDE RECORDS SUMMARY | 2018-02-08 23:53 | XMS REPORT ---
Author Author ROBERT PLASCENCIA Organization [facility] Address [address] [place] [address] Care Team Providers Care Metal Spinner Name Role Phone ROBERT PLASCENCIA Unavailable PROBLEMS Type Condition ICD9-CM Code [id number] Code Onset Dates Condition Status SNOMED Code Problem Drug-induced erectile dysfunction N52.2 Active 674099119 Problem Seasonal allergic rhinitis due to pollen J30.1 Active 27030248 Problem Essential hypertension I10 Active 33162333 Problem Other secondary hypertension I15.8 Active 09699056 Problem Pulmonary hypertension I27.2 Active 02944793 ALLERGIES No Information ENCOUNTERS Encounter Location Date Diagnosis [facility] [address] [address] Sep, [facility] [address] [address]- 6712 Aug, Essential hypertension I10 [facility] [address] 27325- [address] Jul, [facility] [id number] [place] [address] 25074- 9179 June, [facility] [address] [address]- [address] May, Essential hypertension I10 [facility] [address] 61839- 6146 May, [facility] [address] [id number] May, Dental caries K02.9 [facility] [id number] [place] [address] [id number] May, Dental examination Z01.20 [facility] [id number] [place] [address] 30656- 4903 16 May, 2017 Dental examination Z01.20 [facility] [id number] [place] [address] 69839- 3991 May, Facial swelling R22.0 [facility] [address] [place] [address] 34518- 5059 04 May, 2017 [facility] [id number] [place] [address] 25389- 3800 Apr, Essential hypertension I10 [facility] [address] [place] [address] 26290- 9752 Mar, Essential hypertension I10 and Acute superficial gastritis without hemorrhage K29.00 [facility] [address] [place] [address] 20960- 6440 Feb, [facility] [address] [place] [address] 72306- 4489 Feb, Essential hypertension I10 [facility] [address] [place] [address] 81585- 9394 Feb, [facility] [address] [place] [address] 00502- 0028 Jan, [facility] [id number] [place] [address] 17091 -1064 Jan, Facial swelling R22.0 [facility] [address] [place] [address] 29368- 0354 Dec, Essential hypertension I10 [facility] [address] [place] [address] 58902- 9968 Dec, Essential hypertension I10 [facility] [address] [place] [address] 31562- 5868 Nov, [facility] [address] [place] [address] 55165- 6709 Nov, Essential hypertension I10 and Subconjunctival hemorrhage of right eye H11.31 [facility] [address], [place] [address] Nov, Essential hypertension I10 and Subconjunctival hemorrhage of right eye H11.31 [facility] [address], [place] [address] 5[address] Sep, Essential hypertension I10 [facility] [address] [place] [address] 45183- 3461 Jul, Seasonal allergic rhinitis due to pollen J30.1 [place] [facility] [address] [place] [address] 17960- 5472 Jul, [facility] [address] [place] [address] 43635- 1563 May, [facility] [id number] [place] [address] [id number] May, [facility] [address] [place] [address] 76803- 4603 Apr, Essential hypertension I10 ; Seasonal allergic rhinitis due to pollen J30.1 and Drug-induced erectile dysfunction N52.2 [facility] [address] [place] [address] 77427- 8709 Apr, Essential hypertension I10 [facility] [address] [place] [address] 91442- 8609 Mar, [facility] [address] [place] [address] 89081- 3926 Mar, Chest discomfort R07.89 ; Shortness of breath R06.02 ; Tobacco abuse Z72.0 ; Other secondary hypertension I15.8 ; Pulmonary hypertension I27.2 and Essential hypertension I10 [facility] [address] [place] [address] 38230- 4682 Feb, Essential hypertension I10 and Tobacco abuse Z72.0 [facility] [address] [place] [address] 41890- 7958 Feb, [facility] [address] [facility] [id number] [address] 24[address] Feb, Essential hypertension I10 [facility] [address] [facility] [id number] [address] 1768 Jan, Essential hypertension I10 [facility] [address] [facility] [id number] [id number] Jan, Dental examination Z01.20 and Dental caries K02.9 [facility] [id number], [place] [address]- 5971 Jan, [facility] [address] [place] [address] 73035- 3239 Jan, [facility] [address], [place] [address]- 3534 Jan, Essential hypertension I10 [facility] [address], [place] [address]- 6403 Jan, Essential hypertension I10 [facility] [address], [place] [address]- 7469 Jan, [facility] [address], [place] [address]- 5770 Jan, [facility] [address], [place] [address]- 0982 Jan, [facility] [address], [place] [address]- 4728 Jan, [facility] [address], [place] [address]- 56[address] Jan, Hypertensive crisis I16.9 and Encounter to establish care Z76.89 [facility] [id number], [place] [address]- 5184 Dec, IMMUNIZATIONS No Known Immunizations SOCIAL HISTORY Never Assessed REASON FOR VISIT med refill PLAN OF CARE VITAL SIGNS MEDICATIONS Medication Instructions Dosage Frequency Start Date End Date Duration Status Chlorthalidone 25 MG Orally Once a day 1 tablet in the morning 24h 90 days Active RESULTS No Results PROCEDURES No Known procedures INSTRUCTIONS MEDICATIONS ADMINISTERED No Known Medications MEDICAL (GENERAL) HISTORY Type Description Date Medical History Hypertension Medical History Chemical stress test neg for ischemia 05/2016 Medical History Bronchitis as a kid Hospitalization History hypertension 2xs in ICU for 2 days 2014 Hospitalization History HTN 2013
--- OUTSIDE RECORDS SUMMARY | 2018-02-08 23:53 | XMS REPORT ---
Author Author EVERETT CASTAÑEDA [facility] Address [address] [place] [address] Care Team Providers Care Power Sweeper Operator Name Role Phone EVERETT CASTAÑEDA Unavailable PROBLEMS Type Condition ICD9-CM Code BWF33-HY Code Onset Dates Condition Status SNOMED Code Problem Drug-induced erectile dysfunction N52.2 Active 590718876 Problem Seasonal allergic rhinitis due to pollen J30.1 Active 12204028 Problem Essential hypertension I10 Active 02420325 Problem Other secondary hypertension I15.8 Active 16091161 Problem Pulmonary hypertension I27.2 Active 20597166 ALLERGIES No Known Allergies ENCOUNTERS Encounter Location Date Diagnosis [facility] [id number] [place] [address] 96903- 8027 Sep, [facility] [id number] [place] [address] 67476- 4035 Aug, Essential hypertension I10 [facility] [id number] [place] [address] 21211- 7607 Aug, Essential hypertension I10 [facility] [id number] [place] [address] 92568- 8723 Jul, [facility] [id number] [place] [address] 97293- 2056 June, [facility] [id number] [place] [address] 20747- 1558 May, Essential hypertension I10 [facility] [id number] [place] [address] 49225- 3455 May, [facility] [address] [place] [address] [phone] May, Dental caries K02.9 [facility] [address] [id number] 16 May, 2017 Dental examination Z01.20 [facility] [id number] [place] [address] 63397- 6756 16 May, 2017 Dental examination Z01.20 [facility] [id number] [place] [address] 11424- 1001 16 May, 2017 Facial swelling R22.0 [facility] [id number] [place] [address] 31856- 6724 04 May, 2017 [facility] [id number] [place] [address] 76717- 4747 Apr, Essential hypertension I10 [facility] [id number] [place] [address] 88821- 3223 07 Mar, 2017 Essential hypertension I10 and Acute superficial gastritis without hemorrhage K29.00 [facility] [id number] [place] [address] 63850- 3758 Feb, [facility] [id number] [place] [address] 01180- 0262 Feb, Essential hypertension I10 [facility] [id number] [place] [address] 13564- 4411 Feb, [facility] [id number] [place] [address] 02375- 2269 Jan, [facility] [address] [place] [address] 24912 -7153 Jan, Facial swelling R22.0 [facility] [id number] [place] [address] 98810- 4007 Dec, Essential hypertension I10 [facility] [id number] [place] [address] 15040- 6945 Dec, Essential hypertension I10 [facility] [id number] [place] [address] 44933- 6243 Nov, [facility] [address], [place] [address]- 9667 Nov, Essential hypertension I10 and Subconjunctival hemorrhage of right eye H11.31 [facility] [address] [place] [address] 09135 -2809 Nov, Essential hypertension I10 and Subconjunctival hemorrhage of right eye H11.31 [facility] [id number] [place] [address] 12955- 0958 Sep, Essential hypertension I10 [place] [id number] [place] [address] 11260- 6158 Jul, Seasonal allergic rhinitis due to pollen J30.1 [place] [facility] [id number] [place] [address] 29213- 8055 Jul, [place] [id number] [place] [address] 11414- 4119 May, [facility] [id number] [place] [address] [phone] May, [place] [address] [place] [address] 81211- 1216 Apr, Essential hypertension I10 ; Seasonal allergic rhinitis due to pollen J30.1 and Drug-induced erectile dysfunction N52.2 [facility] [address] [place] [address] 02981- 3544 Apr, Essential hypertension I10 [place] [id number] [place] [address] 13711- 9778 Mar, [facility] [address] [place] [address] 49433- 5562 Mar, Chest discomfort R07.89 ; Shortness of breath R06.02 ; Tobacco abuse Z72.0 ; Other secondary hypertension I15.8 ; Pulmonary hypertension I27.2 and Essential hypertension I10 [place] [address] [place] [address] 18533- 2994 Feb, Essential hypertension I10 and Tobacco abuse Z72.0 [facility] [id number] [place] [address] 01310- 0329 Feb, [facility] [id number] [place] [address] 08507- 7743 Feb, Essential hypertension I10 [facility] [id number] [place] [address] 86902- 8051 Jan, Essential hypertension I10 [facility] [id number] [place] [address] [phone] Jan, Dental examination Z01.20 and Dental caries K02.9 [facility] [id number] [place] [address] 61738- 7327 Jan, [facility] [id number] [place] [address] 90137- 2584 Jan, [facility] [id number] [place] [address] 25253- 6214 Jan, Essential hypertension I10 [facility] [id number] [place] [address] 91956- 6057 Jan, Essential hypertension I10 [facility] [id number] [place] [address] 68443- 5732 Jan, [facility] [id number] [place] [address] 92638- 7382 Jan, [facility] [id number] [place] [address] 72306- 7773 Jan, [facility] [id number] [place] [address] 72549- 3647 Jan, [facility] [address] [place] [address] 82394- 7600 Jan, Hypertensive crisis I16.9 and Encounter to establish care Z76.89 [facility] [id number] [place] [address] 42544- 2977 Dec, IMMUNIZATIONS No Known Immunizations SOCIAL HISTORY Never Assessed REASON FOR VISIT facial swelling PLAN OF CARE Activity Details Follow Up prn Reason:EXT # 1 # 5 # 14 # [address] Castañeda VITAL SIGNS Height 72 in 2017-05-27 Blood pressure systolic 170 mmHg 2017-05-27 Blood pressure diastolic 110 158 mmHg 2017-05-27 MEDICATIONS Medication Instructions Dosage Frequency Start Date End Date Duration Status Chlorthalidone 25 MG Orally Once a day 1 tablet in the morning 24h 90 days Active Amlodipine Besylate 10 MG Orally Once a day 1 tablet 24h 90 days Active Lisinopril 40 MG Orally Once a day 1 tablet 24h 09 Jan, 2016 90 days Active Kgqjxang-ICD-5 Active Carvedilol 25 MG Orally 2 times a day 1 tablet 12h Not-Taking Amoxicillin 500 mg Orally 2 times a day 2 capsule 12h May,May 10 day(s) Active HydrALAZINE HCl 100 MG Orally 2 times a day 1 tablet with food 12h Nov, 90 days Active Magnesium Oxide 400 MG Orally Once a day 1 tablet with food 24h Active Aspirin EC 81 MG Orally Once a day 1 tablet 24h 2 Mar, 2018 90 days Active Loratadine 10 MG Orally Once a day 1 tablet 24h 29 Apr, 2016 30 days Not-Taking Lipitor 40 mg Orally Once a day 1 tablet 24h 90 days Active Clonidine HCl 0.1 MG Orally Once a day 1 tablet at bedtime 24h 6 Months Active Atenolol 50 MG Orally 2 times a day 1 tablet 12h Jan, Not- Taking RESULTS No Results PROCEDURES Procedure Date Ordered Result Body Site LTD ORAL EVALUATION - PROBLEM FOCUS May 27, 2017 INTRAORL-PERIAPICAL 1 FILM 73800 May 27, 2017 INTRAORL-PERIAPICAL EA ADD FILM May 27, 2017 INTRAORL-PERIAPICAL EA ADD FILM May 27, 2017 Billing Notes on claim May 27, 2017 INSTRUCTIONS MEDICATIONS ADMINISTERED No Known Medications MEDICAL (GENERAL) HISTORY Type Description Date Medical History Hypertension Medical History Chemical stress test neg for ischemia 05/2016 Medical History Bronchitis as a kid Hospitalization History hypertension 2xs in ICU for 2 days 2014 Hospitalization History HTN 2013
--- OUTSIDE RECORDS SUMMARY | 2018-02-08 23:53 | XMS REPORT ---
Author Author ROBERT PLASCENCIA [facility] Address [address] [place] [address] Care Team Providers Care Statement Clerks Supervisor Name Role Phone ROBERT PLASCENCIA Unavailable PROBLEMS Type Condition ICD9-CM Code VLZ80-UJ Code Onset Dates Condition Status SNOMED Code Problem Drug-induced erectile dysfunction N52.2 Active 889486778 Problem Seasonal allergic rhinitis due to pollen J30.1 Active 07073743 Problem Essential hypertension I10 Active 80591809 Problem Other secondary hypertension I15.8 Active 18527686 Problem Pulmonary hypertension I27.2 Active 09402803 ALLERGIES Substance Reaction Event Type Date Status N.K.D.A. Unknown Non Drug Allergy Feb, Unknown SOCIAL HISTORY No smoking Hx information available PLAN OF CARE Activity Details Follow Up 3 Months Reason:BP VITAL SIGNS Height 72 in 2016-03-07 Weight 225.2 lbs 2016-03-07 Temperature 98.2 degrees Fahrenheit 2016-03-07 Heart Rate 56 bpm 2016-03-07 Respiratory Rate 18 2016-03-07 BMI 30.54 kg/m2 2016-03-07 Blood pressure systolic 170 mmHg 2016-03-07 Blood pressure diastolic 98 mmHg 2016-03-07 MEDICATIONS Medication Instructions Dosage Frequency Start Date End Date Duration Status Potassium Chloride 20 MEQ Orally Once a day 1 packet with food 24h Active Varenicline Tartrate 0.5 MG X 11 & 1 MG X 42 Orally 2 times a day 1/2 tab in the PM X 4 days, 1/2 tab twice a day X4 days, 1/2 in AM and 1 in PM X 4 days then 1 tab twice a day 12h Feb, Mar, 30 days Active Chlorthalidone 25 MG Orally Once a day 1 tablet in the morning 24h Active Amlodipine Besylate 10 mg Orally Once a day 1 tablet 24h 90 days Active Atenolol 50 MG Orally 2 times a day 1 tablet 12h Jan, Active Lisinopril 40 MG Orally once daily as directed 24h Jan, Active RESULTS No Results PROCEDURES Procedure Date Ordered Related Diagnosis Body Site Office Visit, Est Pt., Level 3 Mar 07, 2016 IMMUNIZATIONS No Known Immunizations
--- OUTSIDE RECORDS SUMMARY | 2018-02-08 23:53 | XMS REPORT ---
Author Author ROBERT PLASCENCIA Organization [facility] Address [address] [place] [address] Care Team Providers Care Java Engineer Name Role Phone ROBERT PLASCENCIA Unavailable PROBLEMS Type Condition ICD9-CM Code RFW43-EX Code Onset Dates Condition Status SNOMED Code Problem Drug-induced erectile dysfunction N52.2 Active 003440027 Problem Seasonal allergic rhinitis due to pollen J30.1 Active 13196560 Problem Essential hypertension I10 Active 43445454 Problem Other secondary hypertension I15.8 Active 85233390 Problem Pulmonary hypertension I27.2 Active 51674697 ALLERGIES No Information ENCOUNTERS Encounter Location Date Diagnosis [facility] [address] [address]- [address]6 Jul, [facility] [address] 8[address]64- 7042 June, [facility] [address] 72930- 7842 May, Essential hypertension I10 [facility] [address] 84304- 4276 May, [facility] [address] [id number] May, Dental caries K02.9 [facility] [address] [id number] May, Dental examination Z01.20 [facility] [address] 9[address]99- 7524 May, Dental examination Z01.20 [facility] [address] [address]01- 1998 May, Facial swelling R22.0 [facility] [address], [place] [address]- 9085 04 May, 2017 [facility] [address] [place] [address] 18963- 5677 Apr, Essential hypertension I10 [facility] [address], [place] [address]- 4281 07 Mar, 2017 Essential hypertension I10 and Acute superficial gastritis without hemorrhage K29.00 [facility] [id number], [place] [address]- 8709 Feb, [facility] [id number] [place] [address] 83746- 5626 Feb, Essential hypertension I10 [facility] [id number] [place] [address] 52823- 7299 Feb, [facility] [id number] [place] [address] 72543- 2499 Jan, [facility] [address], [place] [address] Jan, Facial swelling R22.0 [facility] [address] [place] [address] 24498- 6873 Dec, Essential hypertension I10 [facility] [address], [place] [address]- 7778 Dec, Essential hypertension I10 [facility] [address], [place] [address]- 4075 Nov, [facility] [address], [place] [address]- 4682 Nov, Essential hypertension I10 and Subconjunctival hemorrhage of right eye H11.31 [facility] [address], [place] [address]71 Nov, Essential hypertension I10 and Subconjunctival hemorrhage of right eye H11.31 [facility] [address], [place] [address]- 6669 Sep, Essential hypertension I10 [facility] [id number] [place] [address] 57575- 9713 Jul, Seasonal allergic rhinitis due to pollen J30.1 [facility] [id number] [place] [address] 57228- 9702 Jul, [facility] [id number] [place] [address] 43567- 4520 May, [facility] [id number] [place] [address] [id number] May, [facility] [id number] [place] [address] 76100- 4554 Apr, Essential hypertension I10 ; Seasonal allergic rhinitis due to pollen J30.1 and Drug-induced erectile dysfunction N52.2 [facility] [id number] [place] [address] 04626- 8017 Apr, Essential hypertension I10 [facility] [id number] [place] [address] 73109- 1542 Mar, [facility] [id number] [place] [address] 02221- 6994 Mar, Chest discomfort R07.89 ; Shortness of breath R06.02 ; Tobacco abuse Z72.0 ; Other secondary hypertension I15.8 ; Pulmonary hypertension I27.2 and Essential hypertension I10 [facility] [id number] [place] [address] 24969- 6568 Feb, Essential hypertension I10 and Tobacco abuse Z72.0 [facility] [id number] [place] [address] 20827- 0227 Feb, [facility] [id number] [place] [address] 40740- 7946 Feb, Essential hypertension I10 [facility] [id number] [place] [address] 21221- 4599 Jan, Essential hypertension I10 [facility] [address] [id number] [id number] Jan, Dental examination Z01.20 and Dental caries K02.9 [facility] [address], [place] [address]- 3685 Jan, [facility] [address] [place] [address] 82409- 8928 Jan, [facility] [address] [place] [address] 34460- 1183 Jan, Essential hypertension I10 [facility] [id number] [place] [address] 51555- 5938 Jan, Essential hypertension I10 [facility] [address] [place] [address] 34673- 9237 Jan, [facility] [id number] [place] [address] 27626- 5822 Jan, [facility] [address] [place] [address] 17587- 1572 Jan, [facility] [address] [place] [address] 72699- 7284 Jan, [facility] [address], [place] [address]- 3320 Jan, Hypertensive crisis I16.9 and Encounter to establish care Z76.89 [facility] [address], [place] [address]- 6406 Dec, IMMUNIZATIONS No Known Immunizations SOCIAL HISTORY Never Assessed REASON FOR VISIT Repository Medication/LVM PLAN OF CARE VITAL SIGNS MEDICATIONS Unknown [...]
--- OUTSIDE RECORDS SUMMARY | 2018-02-08 23:54 | XMS REPORT ---
Author Author ROBERT PLASCENCIA [facility] Address [address] [place] [address] Care Team Providers Care Signing Teacher Name Role Phone ROBERT PLASCENCIA Unavailable PROBLEMS Type Condition ICD9-CM Code [id number] Code Onset Dates Condition Status SNOMED Code Problem Seasonal allergic rhinitis due to pollen J30.1 Active 42369975 Problem Drug-induced erectile dysfunction N52.2 Active 549647069 Problem Essential hypertension I10 Active 59864550 Problem Other secondary hypertension I15.8 Active 03148738 Problem Pulmonary hypertension I27.2 Active 57215338 ALLERGIES Unknown Allergies SOCIAL HISTORY No smoking Hx information available PLAN OF CARE VITAL SIGNS MEDICATIONS Medication Instructions Dosage Frequency Start Date End Date Duration Status Amlodipine Besylate 10 mg Orally Once a day 1 tablet 24h 90 days Active Lisinopril 40 MG Orally once daily as directed 24h Jan, Active Atenolol 50 mg Orally Once a day 1 tablet 24h Jan, 90 days Active RESULTS No Results PROCEDURES No Known procedures IMMUNIZATIONS No Known Immunizations
--- OUTSIDE RECORDS SUMMARY | 2018-02-08 23:54 | XMS REPORT ---
Author Author ROBERT PLASCENCIA Organization [facility] Address [address] [place] [address] Care Team Providers Care Retail Sales Associate Seasonal Name Role Phone ROBERT PLASCENCIA Unavailable PROBLEMS Type Condition ICD9-CM Code [id number] Code Onset Dates Condition Status SNOMED Code Problem Drug-induced erectile dysfunction N52.2 Active 580357012 Problem Seasonal allergic rhinitis due to pollen J30.1 Active 80883135 Problem Essential hypertension I10 Active 24681906 Problem Other secondary hypertension I15.8 Active 83250524 Problem Pulmonary hypertension I27.2 Active 15293875 ALLERGIES No Information ENCOUNTERS Encounter Location Date Diagnosis [facility] [address] [address] Jul, [facility] [address] [address] June, [facility] [address] [address] May, Essential hypertension I10 [facility] [address] [address] May, [facility] [address] [id number] May, Dental caries K02.9 [facility] [address] [id number] May, Dental examination Z01.20 [facility] [address] [address] May, Dental examination Z01.20 [facility] [address] [address] May, Facial swelling R22.0 [facility] [address] [address] 04 May, 2017 [facility] [id number] [place] [address] 6[address] Apr, Essential hypertension I10 [facility] [address] [address] 07 Mar, 2017 Essential hypertension I10 and Acute superficial gastritis without hemorrhage K29.00 [facility] [id number], [place] [address] Feb, [facility] [id number] [place] [address]- 4284 Feb, Essential hypertension I10 [facility] [id number] [place] [address]66- 9701 Feb, [facility] [id number] [place] [address] 47[address]- 2852 Jan, [facility] [address], [place] [address] Jan, Facial swelling R22.0 [facility] [id number] [place] [address]11- 9897 Dec, Essential hypertension I10 [facility] [address] [address] Dec, Essential hypertension I10 [facility] [address] [address] Nov, [facility] [address] [address] Nov, Essential hypertension I10 and Subconjunctival hemorrhage of right eye H11.31 [facility] [address], [place] [address] Nov, Essential hypertension I10 and Subconjunctival hemorrhage of right eye H11.31 [facility] [address] [address] Sep, Essential hypertension I10 [facility] [id number] [place] [address]- 6[address] Jul, Seasonal allergic rhinitis due to pollen J30.1 [facility] [id number] [place] [address]- 7763 Jul, [facility] [id number] [place] [address] 14992- 6471 May, [facility] [id number] [place] [id number] May, [facility] [id number] [place] [address] 49885- 6957 Apr, Essential hypertension I10 ; Seasonal allergic rhinitis due to pollen J30.1 and Drug-induced erectile dysfunction N52.2 [facility] [id number] [place] [address]99- 4225 Apr, Essential hypertension I10 [facility] [id number] [place] [address]36- 0[address] Mar, [facility] [id number] [place] [address] 00326- 4763 Mar, Chest discomfort R07.89 ; Shortness of breath R06.02 ; Tobacco abuse Z72.0 ; Other secondary hypertension I15.8 ; Pulmonary hypertension I27.2 and Essential hypertension I10 [facility] [id number] [place] [address]86- 2837 Feb, Essential hypertension I10 and Tobacco abuse Z72.0 [facility] [id number] [place] [address] 10663- 4163 Feb, [facility] [id number] [place] [address] 18768- 7011 Feb, Essential hypertension I10 [facility] [id number] [place] [address]659- 4966 Jan, Essential hypertension I10 [facility] [address] [place] [id number] Jan, Dental examination Z01.20 and Dental caries K02.9 [facility] [address], [place] [address] Jan, [facility] [id number] [place] [address] 0[address]10- 8131 Jan, [facility] [id number] [place] [address] 6[address]- 7740 Jan, Essential hypertension I10 [facility] [id number] [place] [address] 8[address]67- 6453 Jan, Essential hypertension I10 [facility] [id number] [place] [address]- 24[address] Jan, [facility] [id number] [place] [address] 40038- 2095 Jan, [facility] [id number] [place] [address] 936[address]- 2257 Jan, [facility] [id number] [place] [address] 57099- 0673 Jan, [facility] [address], [place] [address] Jan, Hypertensive crisis I16.9 and Encounter to establish care Z76.89 [facility] [address], [place] [address] Dec, IMMUNIZATIONS No Known Immunizations SOCIAL HISTORY Never Assessed REASON FOR VISIT Requests return call PLAN OF CARE VITAL SIGNS MEDICATIONS Unknown [...]
--- OUTSIDE RECORDS SUMMARY | 2018-02-08 23:54 | XMS REPORT ---
Author Author ROBERT PLASCENCIA [facility] Address [address] [place] [address] Care Team Providers Care Chief Hydroelectric Station Operator Name Role Phone ROBERT PLASCENCIA Unavailable PROBLEMS Type Condition ICD9-CM Code [id number] Code Onset Dates Condition Status SNOMED Code Problem Drug-induced erectile dysfunction N52.2 Active 862141939 Problem Seasonal allergic rhinitis due to pollen J30.1 Active 78389103 Problem Essential hypertension I10 Active 77883460 Problem Other secondary hypertension I15.8 Active 01965445 Problem Pulmonary hypertension I27.2 Active 78379600 ALLERGIES Unknown Allergies SOCIAL HISTORY No smoking Hx information available PLAN OF CARE VITAL SIGNS MEDICATIONS Unknown Medications RESULTS No Results PROCEDURES No Known procedures IMMUNIZATIONS No Known Immunizations
--- OUTSIDE RECORDS SUMMARY | 2018-02-08 23:54 | XMS REPORT ---
Author Author SOHAM LUCAS Organization [facility] Address [address] [place], [place] [id number] Care Team Providers Care Store Associate Name Role Phone SOHAM LUCAS Unavailable PROBLEMS Type Condition ICD9-CM Code [id number] Code Onset Dates Condition Status SNOMED Code Problem Drug-induced erectile dysfunction N52.2 Active 720597596 Problem Seasonal allergic rhinitis due to pollen J30.1 Active 69239520 Problem Essential hypertension I10 Active 91092344 Problem Other secondary hypertension I15.8 Active 57682946 Problem Pulmonary hypertension I27.2 Active 90099031 ALLERGIES No Known Allergies SOCIAL HISTORY Never Assessed PLAN OF CARE Activity Details Follow Up 4 Weeks Reason: VITAL SIGNS Height 72 in 2016-03-21 Weight 225 lbs 2016-03-21 Heart Rate 52 bpm 2016-03-21 Respiratory Rate 18 2016-03-21 Oximetry 98 % 2016-03-21 BMI 30.51 kg/m2 2016-03-21 Blood pressure systolic 162 mmHg 2016-03-21 Blood pressure diastolic 88 mmHg 2016-03-21 MEDICATIONS Medication Instructions Dosage Frequency Start Date End Date Duration Status Amlodipine Besylate 10 mg Orally Once a day 1 tablet 24h 90 days Active Chlorthalidone 25 MG Orally Once a day 1 tablet in the morning 24h Active Potassium Chloride CR 20meq po daily 1 24h Active Lisinopril 40 MG Orally once daily as directed 24h Jan, Active Atenolol 50 MG Orally 2 times a day 1 tablet 12h 12 Jan, 2016 Active Aspirin EC 325 MG Orally Once a day 24h Active Chantix Active RESULTS No Results PROCEDURES Procedure Date Ordered Result Body Site MEASURE BLOOD OXYGEN LEVEL Mar 21, 2016 IMMUNIZATIONS No Known Immunizations MEDICAL (GENERAL) HISTORY Type Description Date Medical History Hypertension Medical History Chemical stress test neg for ischemia 05/2016 Hospitalization History hypertension 2xs in ICU for 2 days 2014 Hospitalization History HTN 2013
--- OUTSIDE RECORDS SUMMARY | 2018-02-08 23:54 | XMS REPORT ---
Author Author FINN HAGER Organization [facility] Address [address] [place] [address] Care Team Providers Care Acid Cutter Name Role Phone FINN HAGER Unavailable PROBLEMS Type Condition ICD9-CM Code JRR99-GX Code Onset Dates Condition Status SNOMED Code Problem Drug-induced erectile dysfunction N52.2 Active 390709735 Problem Seasonal allergic rhinitis due to pollen J30.1 Active 79278230 Problem Essential hypertension I10 Active 89352129 Problem Other secondary hypertension I15.8 Active 87024415 Problem Pulmonary hypertension I27.2 Active 38131628 ALLERGIES No Known Allergies ENCOUNTERS Encounter Location Date Diagnosis [facility] [address] [address] June, [facility] [address] [address] May, Essential hypertension I10 [facility] [address] [address] May, [facility] [address] [id number] May, Dental caries K02.9 [facility] [address] [id number] May, Dental examination Z01.20 [facility] [address] [address] May, Dental examination Z01.20 [facility] [address] [address] May, Facial swelling R22.0 [facility] [address] [address] May, [facility] [id number] [address] Apr, Essential hypertension I10 [facility] [id number] [place] [address] 26563- 2342 Mar, Essential hypertension I10 and Acute superficial gastritis without hemorrhage K29.00 [facility] [id number] [place] [address]37- 7912 Feb, [facility] [id number] [place] [address] 12078- 7193 Feb, Essential hypertension I10 [place] [id number] [place] [address]- 0515 Feb, [facility] [id number] [place] [address] 8[address]14- 9064 Jan, [facility] [id number] [place] [address] Jan, Facial swelling R22.0 [facility] [id number] [place] [address]163- 3651 Dec, Essential hypertension I10 [facility] [id number] [place] [address] 20335- 8291 Dec, Essential hypertension I10 [facility] [id number] [place] [address] 03969- 4307 Nov, [facility] [id number] [place] [address] 75105- 2561 Nov, Essential hypertension I10 and Subconjunctival hemorrhage of right eye H11.31 [facility] [address] [place] [address]682 [address]72 Nov, Essential hypertension I10 and Subconjunctival hemorrhage of right eye H11.31 [facility] [address] [address] Sep, Essential hypertension I10 [facility] [id number] [address] Jul, Seasonal allergic rhinitis due to pollen J30.1 [facility] [id number] [place] [address] 33614- 7434 Jul, [facility] [id number] [place] [address] 70409- 4356 May, [facility] [address] [id number] May, [facility] [id number] [place] [address] 20248- 7085 Apr, Essential hypertension I10 ; Seasonal allergic rhinitis due to pollen J30.1 and Drug-induced erectile dysfunction N52.2 [facility] [id number] [place] [address] 79486- 0026 Apr, Essential hypertension I10 [facility] [id number] [place] [address] 95279- 3449 Mar, [facility] [id number] [place] [address] 09704- 7051 Mar, Chest discomfort R07.89 ; Shortness of breath R06.02 ; Tobacco abuse Z72.0 ; Other secondary hypertension I15.8 ; Pulmonary hypertension I27.2 and Essential hypertension I10 [facility] [address] [place] [address] 86937- 5216 Feb, Essential hypertension I10 and Tobacco abuse Z72.0 [facility] [address] [place] [address] 73823- 3716 Feb, [facility] [id number] [place] [address] 41828- 0909 Feb, Essential hypertension I10 [facility] [address] [place] [address] 01777- 0771 Jan, Essential hypertension I10 [facility] [id number] [place] [id number] Jan, Dental examination Z01.20 and Dental caries K02.9 [facility] [address] [address] 8[address] Jan, [facility] [id number] [place] [address] 74617- 7788 Jan, [facility] [id number] [place] [address] 12259- 4793 Jan, Essential hypertension I10 [facility] [id number] [place] [address] 99373- 5006 Jan, Essential hypertension I10 [place] [id number] [place] [address] 68272- 4895 Jan, [facility] [id number] [place] [address] 25613- 5212 Jan, [facility] [id number] [place] [address] 20445- 8851 Jan, [facility] [id number] [place] [address] 07933- 3775 Jan, [place] [id number] [place] [address] 78759- 2056 Jan, Hypertensive crisis I16.9 and Encounter to establish care Z76.89 [place] [id number] [place] [address] 22629- 9772 Dec, IMMUNIZATIONS No Known Immunizations SOCIAL HISTORY Never Assessed REASON FOR VISIT left sided facial swelling. denies any pain...denies dental pain. just started swelling at 1100 this am. [email or web address] PLAN OF CARE VITAL SIGNS Height 72 in 2017-01-30 Weight 234.2 lbs 2017-01-30 Temperature 98.6 degrees Fahrenheit 2017-01-30 Heart Rate 88 bpm 2017-01-30 Respiratory Rate 2017-01-30 BMI 31.76 kg/m2 2017-01-30 Blood pressure systolic 140 mmHg 2017-01-30 Blood pressure diastolic 90 mmHg 2017-01-30 MEDICATIONS Medication Instructions Dosage Frequency Start Date End Date Duration Status Loratadine 10 MG Orally Once a day 1 tablet 24h Apr, 30 days Active Amoxicillin 500 mg Orally every 12 hrs 2 capsules 12h Jan,Jan 10 days Active PredniSONE 20 mg Orally Once a day 2 tablets 24h Jan, Jan, 05 days Active Amlodipine Besylate 10 MG Orally Once a day 1 tablet 24h 90 days Active Lisinopril 40 MG Orally Once a day 1 tablet 24h Jan, 90 days Active Atenolol 50 MG Orally 2 times a day 1 tablet 12h Jan, Not- Taking Aspirin EC 81 MG Orally Once a day 1 tablet 24h 30 days Active Chlorthalidone 25 MG Orally Once a day 1 tablet in the morning 24h 90 days Active Lipitor 40 mg Orally Once a day 1 tablet 24h 90 days Active Clonidine HCl 0.1 MG Orally Once a day 1 tablet at bedtime 24h 6 Months Active HydrALAZINE HCl 100 MG Orally 2 times a day 1 tablet with food 12h Nov, Active RESULTS No Results PROCEDURES No Known procedures INSTRUCTIONS MEDICATIONS ADMINISTERED No Known Medications MEDICAL (GENERAL) HISTORY Type Description Date Medical History Hypertension Medical History Chemical stress test neg for ischemia 05/2016 Medical History Bronchitis as a kid Hospitalization History hypertension 2xs in ICU for 2 days 2014 Hospitalization History HTN 2013
--- OUTSIDE RECORDS SUMMARY | 2018-02-08 23:54 | XMS REPORT ---
Author Author ROBERT PLASCENCIA [facility] Address [address] [place] [address] Care Team Providers Care Sustainable Design Consultant Name Role Phone ROBERT PLASCENCIA Unavailable PROBLEMS Type Condition ICD9-CM Code [id number]-FS Code Onset Dates Condition Status SNOMED Code Problem Seasonal allergic rhinitis due to pollen J30.1 Active 76095149 Problem Drug-induced erectile dysfunction N52.2 Active 400531077 Problem Essential hypertension I10 Active 99245677 Problem Other secondary hypertension I15.8 Active 43922940 Problem Pulmonary hypertension I27.2 Active 36439519 ALLERGIES Unknown Allergies SOCIAL HISTORY No smoking Hx information available PLAN OF CARE VITAL SIGNS MEDICATIONS Unknown Medications RESULTS No Results PROCEDURES No Known procedures IMMUNIZATIONS No Known Immunizations
--- OUTSIDE RECORDS SUMMARY | 2018-02-08 23:54 | XMS REPORT ---
Author Author ROBERT PLASCENCIA [facility] Address [address] [place] [address] Care Team Providers Care Grain Elevator Superintendent Name Role Phone ROBERT PLASCENCIA Unavailable PROBLEMS Type Condition ICD9-CM Code JJB77-PD Code Onset Dates Condition Status SNOMED Code Problem Seasonal allergic rhinitis due to pollen J30.1 Active 45474624 Problem Drug-induced erectile dysfunction N52.2 Active 561013150 Problem Essential hypertension I10 Active 23203549 Problem Other secondary hypertension I15.8 Active 47873019 Problem Pulmonary hypertension I27.2 Active 79292395 ALLERGIES Unknown Allergies SOCIAL HISTORY No smoking Hx information available PLAN OF CARE VITAL SIGNS MEDICATIONS Unknown Medications RESULTS No Results PROCEDURES No Known procedures IMMUNIZATIONS No Known Immunizations
--- OUTSIDE RECORDS SUMMARY | 2018-02-08 23:54 | XMS REPORT ---
Author Author ROBERT PLASCENCIA Organization [facility] Address [address] [place] [address] Care Team Providers Care Income Tax Manager Name Role Phone ROBERT PLASCENCIA Unavailable PROBLEMS Type Condition ICD9-CM Code [id number] Code Onset Dates Condition Status SNOMED Code Problem Drug-induced erectile dysfunction N52.2 Active 848922415 Problem Seasonal allergic rhinitis due to pollen J30.1 Active 10911655 Problem Essential hypertension I10 Active 91564495 Problem Other secondary hypertension I15.8 Active 24089480 Problem Pulmonary hypertension I27.2 Active 49140899 ALLERGIES No Information ENCOUNTERS Encounter Location Date Diagnosis [facility] [address] [address] Jul, [facility] [address] [address] June, [facility] [address] [address]- [address]84 May, Essential hypertension I10 [facility] [address] [address] May, [facility] [address] [id number] May, Dental caries K02.9 [facility] [address] [id number] May, Dental examination Z01.20 [facility] [address] [address] May, Dental examination Z01.20 [facility] [address] [address] May, Facial swelling R22.0 [facility] [id number], [place] [address] 04 May, 2017 [facility] [id number] [place] [address] 38948- 9806 Apr, Essential hypertension I10 [facility] [id number], [place] [address] 8[address] 07 Mar, 2017 Essential hypertension I10 and Acute superficial gastritis without hemorrhage K29.00 [facility] [id number] [address] Feb, [facility] [id number] [place] [address] 77391- 5873 Feb, Essential hypertension I10 [facility] [id number] [place] [address] 73857- 7010 Feb, [facility] [id number] [place] [address] 12857- 7195 Jan, [facility] [id number], [place] [address] Jan, Facial swelling R22.0 [facility] [id number] [place] [address] 06358- 7570 Dec, Essential hypertension I10 [facility] [id number], [place] [address] 4[address] Dec, Essential hypertension I10 [facility] [id number], [place] [address] 7238 Nov, [facility] [id number], [place] [address] 3949 Nov, Essential hypertension I10 and Subconjunctival hemorrhage of right eye H11.31 [facility] [id number], [place] [address] Nov, Essential hypertension I10 and Subconjunctival hemorrhage of right eye H11.31 [facility] [id number], [place] [address] Sep, Essential hypertension I10 [facility] [id number] [place] [address] 05531- 8519 Jul, Seasonal allergic rhinitis due to pollen J30.1 [facility] [id number] [place] [address] 49124- 6965 Jul, [facility] [id number] [place] [address] 21885- 3342 May, [facility] [id number] [place] [address] [id number] May, [facility] [id number] [place] [address] 86203- 6395 Apr, Essential hypertension I10 ; Seasonal allergic rhinitis due to pollen J30.1 and Drug-induced erectile dysfunction N52.2 [facility] [id number] [place] [address] 47042- 2334 Apr, Essential hypertension I10 [facility] [id number] [place] [address] 21532- 7993 Mar, [facility] [id number] [place] [address] 46617- 2985 Mar, Chest discomfort R07.89 ; Shortness of breath R06.02 ; Tobacco abuse Z72.0 ; Other secondary hypertension I15.8 ; Pulmonary hypertension I27.2 and Essential hypertension I10 [facility] [id number] [place] [address] 87871- 3252 Feb, Essential hypertension I10 and Tobacco abuse Z72.0 [facility] [id number] [place] [address] 83681- 6967 Feb, [facility] [id number] [place] [address] 75441- 8351 Feb, Essential hypertension I10 [facility] [id number] [place] [address] 87858- 2095 Jan, Essential hypertension I10 [facility] [address] [id number] [id number] Jan, Dental examination Z01.20 and Dental caries K02.9 [facility] [address], [place] [address]- 7101 Jan, [facility] [id number] [place] [address] 61396- 1797 Jan, [facility] [id number] [place] [address] 33112- 9906 Jan, Essential hypertension I10 [facility] [id number] [place] [address] 43969- 2395 Jan, Essential hypertension I10 [facility] [id number] [place] [address] 68287- 6041 Jan, [facility] [id number] [place] [address] 63720- 2543 Jan, [facility] [id number] [place] [address] 69701- 9001 Jan, [facility] [id number] [place] [address] 69652- 9896 Jan, [facility] [id number], [place] [address]- 6264 Jan, Hypertensive crisis I16.9 and Encounter to establish care Z76.89 [facility] [id number], [place] [address]- [address] Dec, IMMUNIZATIONS No Known Immunizations SOCIAL HISTORY [...]
--- OUTSIDE RECORDS SUMMARY | 2018-02-08 23:54 | XMS REPORT ---
Author Author ROBERT PLASCENCIA Organization [facility] Address [address] [place] [address] Care Team Providers Care City Solicitor Name Role Phone ROBERT PLASCENCIA Unavailable PROBLEMS Type Condition ICD9-CM Code POW46-FV Code Onset Dates Condition Status SNOMED Code Problem Drug-induced erectile dysfunction N52.2 Active 771144449 Problem Seasonal allergic rhinitis due to pollen J30.1 Active 37394466 Problem Essential hypertension I10 Active 66037710 Problem Other secondary hypertension I15.8 Active 04707864 Problem Pulmonary hypertension I27.2 Active 43011086 ALLERGIES No Information ENCOUNTERS Encounter Location Date Diagnosis [facility] [address] [address] Jul, [facility] [address] [address]- 3680 June, [facility] [address] [address]- 9049 May, Essential hypertension I10 [facility] [address] [address]- 9225 May, [facility] [address] [id number] May, Dental caries K02.9 [facility] [address] [id number] May, Dental examination Z01.20 [facility] [address] [address]- 6374 May, Dental examination Z01.20 [facility] [address] [address]- 4903 May, Facial swelling R22.0 [facility] [address], [place] [address]- 2[address] 04 May, 2017 [facility] [id number] [place] [address] 27582- 7188 Apr, Essential hypertension I10 [facility] [id number], [place] [address]- 3591 07 Mar, 2017 Essential hypertension I10 and Acute superficial gastritis without hemorrhage K29.00 [facility] [id number] [address] Feb, [facility] [id number] [place] [address] 35663- 0665 Feb, Essential hypertension I10 [facility] [id number] [place] [address] 61018- 4219 Feb, [facility] [id number] [place] [address] 75851- 5059 Jan, [facility] [id number], [place] [address] Jan, Facial swelling R22.0 [facility] [id number] [place] [address] 19873- 9519 Dec, Essential hypertension I10 [facility] [id number], [place] [address]- 5229 Dec, Essential hypertension I10 [facility] [id number], [place] [address]- 9615 Nov, [facility] [id number], [place] [address]- 2693 Nov, Essential hypertension I10 and Subconjunctival hemorrhage of right eye H11.31 [facility] [id number], [place] [address] Nov, Essential hypertension I10 and Subconjunctival hemorrhage of right eye H11.31 [facility] [address], [place] [address]- 9664 Sep, Essential hypertension I10 [facility] [id number] [place] [address] 16216- 2974 Jul, Seasonal allergic rhinitis due to pollen J30.1 [facility] [id number] [place] [address] 60353- 6858 Jul, [facility] [id number] [place] [address] 80807- 4263 May, [facility] [id number] [place] [address] [id number] May, [facility] [id number] [place] [address] 31183- 5178 Apr, Essential hypertension I10 ; Seasonal allergic rhinitis due to pollen J30.1 and Drug-induced erectile dysfunction N52.2 [facility] [id number] [place] [address] 41808- 8971 Apr, Essential hypertension I10 [facility] [id number] [place] [address] 38918- 2371 Mar, [facility] [id number] [place] [address] 85257- 4674 Mar, Chest discomfort R07.89 ; Shortness of breath R06.02 ; Tobacco abuse Z72.0 ; Other secondary hypertension I15.8 ; Pulmonary hypertension I27.2 and Essential hypertension I10 [facility] [id number] [place] [address] 89163- 0150 Feb, Essential hypertension I10 and Tobacco abuse Z72.0 [facility] [id number] [place] [address] 11105- 3081 Feb, [facility] [id number] [place] [address] 61182- 1885 Feb, Essential hypertension I10 [facility] [id number] [place] [address] 88787- 1951 Jan, Essential hypertension I10 [facility] [id number] [id number] Jan, Dental examination Z01.20 and Dental caries K02.9 [facility] [address], [place] [address]- 0103 Jan, [facility] [id number] [place] [address] 90521- 4613 Jan, [facility] [id number] [place] [address] 42341- 5467 Jan, Essential hypertension I10 [facility] [id number] [place] [address] 44951- 7076 Jan, Essential hypertension I10 [facility] [id number] [place] [address] 15711- 6571 Jan, [facility] [id number] [place] [address] 90642- 7110 Jan, [facility] [id number] [place] [address] 23573- 6397 Jan, [facility] [id number] [place] [address] 17118- 8151 Jan, [facility] [id number] [place] [address] 40389- 8312 Jan, Hypertensive crisis I16.9 and Encounter to establish care Z76.89 [facility] [address], [place] [address]- 3041 Dec, IMMUNIZATIONS No Known Immunizations SOCIAL HISTORY [...] for 2 days 2014 Hospitalization History HTN 2014
--- OUTSIDE RECORDS SUMMARY | 2018-02-08 23:55 | XMS REPORT ---
Author Author ROBERT PLASCENCIA [facility] Address [address] [place] [address] Care Team Providers Care Supervisor Sewing Room Name Role Phone ROBERT PLASCENCIA Unavailable PROBLEMS Type Condition ICD9-CM Code WSX31-LV Code Onset Dates Condition Status SNOMED Code Problem Drug-induced erectile dysfunction N52.2 Active 956958713 Problem Seasonal allergic rhinitis due to pollen J30.1 Active 79918522 Problem Essential hypertension I10 Active 20643354 Problem Other secondary hypertension I15.8 Active 10870347 Problem Pulmonary hypertension I27.2 Active 35746219 ALLERGIES Unknown Allergies SOCIAL HISTORY No smoking Hx information available PLAN OF CARE VITAL SIGNS MEDICATIONS Medication Instructions Dosage Frequency Start Date End Date Duration Status Atenolol 50 MG Orally 2 times a day 1 tablet 12h 12 Jan, 2016 Active RESULTS No Results PROCEDURES No Known procedures IMMUNIZATIONS No Known Immunizations
--- OUTSIDE RECORDS SUMMARY | 2018-02-08 23:55 | XMS REPORT ---
Author Author ROBERT PLASCENCIA Organization [facility] Address [address] [place] [address] Care Team Providers Care Java Sybase Developer Name Role Phone ROBERT PLASCENCIA Unavailable PROBLEMS Type Condition ICD9-CM Code ZXL60-EU Code Onset Dates Condition Status SNOMED Code Problem Drug-induced erectile dysfunction N52.2 Active 400867313 Problem Seasonal allergic rhinitis due to pollen J30.1 Active 68787034 Problem Essential hypertension I10 Active 42443670 Problem Other secondary hypertension I15.8 Active 62006983 Problem Pulmonary hypertension I27.2 Active 26706698 ALLERGIES No Information ENCOUNTERS Encounter Location Date Diagnosis [place] [id number] [address]- [address] June, [facility] [address] [address]- 6494 May, Essential hypertension I10 [place] [address] [address]- 4337 May, [facility] [address] [id number] May, Dental caries K02.9 [facility] [address] [id number] May, Dental examination Z01.20 [facility] [address] 90[address]- 8540 May, Dental examination Z01.20 [facility] [address] [address]- 1081 May, Facial swelling R22.0 [place] [address] 0[address]- 5789 May, [facility] [address], [place] [address]- 4064 Apr, Essential hypertension I10 [facility] [id number] [place] [address] 58692- 7073 07 Mar, 2017 Essential hypertension I10 and Acute superficial gastritis without hemorrhage K29.00 [facility] [id number] [place] [address] 28312- 7886 Feb, [facility] [id number] [place] [address] 45546- 7696 Feb, Essential hypertension I10 [place] [id number] [place] [address] 92744- 1312 Feb, [facility] [id number] [place] [address] 60015- 7865 Jan, [facility] [id number] [place] [address] 19479 -7546 Jan, Facial swelling R22.0 [facility] [id number] [place] [address] 26851- 4149 Dec, Essential hypertension I10 [place] [id number] [place] [address] 18535- 8786 Dec, Essential hypertension I10 [facility] [id number] [place] [address] 87400- 8906 Nov, [facility] [id number] [place] [address] 61882- 4948 Nov, Essential hypertension I10 and Subconjunctival hemorrhage of right eye H11.31 [facility] [id number] [place] [address] 93741 -8987 Nov, Essential hypertension I10 and Subconjunctival hemorrhage of right eye H11.31 [facility] [address], [place] [address]- 8041 Sep, Essential hypertension I10 [facility] [address], [place] [address]- 1441 Jul, Seasonal allergic rhinitis due to pollen J30.1 [facility] [id number] [place] [address] 95532- 5735 08 Jul, 2016 [facility] [id number] [place] [address] 52495- 5375 May, [facility] [address] [id number] May, [facility] [id number] [place] [address] 57175- 0601 Apr, Essential hypertension I10 ; Seasonal allergic rhinitis due to pollen J30.1 and Drug-induced erectile dysfunction N52.2 [facility] [id number] [place] [address] 80840- 6633 Apr, Essential hypertension I10 [facility] [id number] [place] [address] 05124- 0510 Mar, [facility] [id number] [place] [address] 21774- 8564 Mar, Chest discomfort R07.89 ; Shortness of breath R06.02 ; Tobacco abuse Z72.0 ; Other secondary hypertension I15.8 ; Pulmonary hypertension I27.2 and Essential hypertension I10 [facility] [address] [place] [address] 73516- 6222 Feb, Essential hypertension I10 and Tobacco abuse Z72.0 [facility] [address] [place] [address] 31811- 0971 Feb, [facility] [id number] [place] [address] 84510- 9331 Feb, Essential hypertension I10 [facility] [id number] [place] [address] 82488- 1159 Jan, Essential hypertension I10 [facility] [id number] [place] [address] [id number] Jan, Dental examination Z01.20 and Dental caries K02.9 [facility] [address], [place] [address]- 8129 Jan, [facility] [id number] [place] [address] 70158- 0117 Jan, [facility] [address] [place] [address] 32010- 6640 Jan, Essential hypertension I10 [facility] [id number] [place] [address] 56215- 1543 Jan, Essential hypertension I10 [facility] [id number] [place] [address] 36459- 6078 Jan, [facility] [id number] [place] [address] 61725- 9485 Jan, [facility] [id number] [place] [address] 01376- 1452 Jan, [facility] [id number] [place] [address] 90702- 1906 Jan, [facility] [address] [place] [address] 93159- 3962 Jan, Hypertensive crisis I16.9 and Encounter to establish care Z76.89 [facility] [address], [place] [address]- 4423 Dec, IMMUNIZATIONS No Known Immunizations SOCIAL HISTORY Never Assessed REASON FOR VISIT Med update from Results PLAN OF CARE VITAL SIGNS MEDICATIONS Unknown [...]
--- OUTSIDE RECORDS SUMMARY | 2018-02-08 23:55 | XMS REPORT ---
Author Author ROBERT PLASCENCIA Organization [facility] Address [address] [place] [address] Care Team Providers Care Fitter And Turner Name Role Phone ROBERT PLASCENCIA Unavailable PROBLEMS Type Condition ICD9-CM Code [id number] Code Onset Dates Condition Status SNOMED Code Problem Drug-induced erectile dysfunction N52.2 Active 719221141 Problem Seasonal allergic rhinitis due to pollen J30.1 Active 86460630 Problem Essential hypertension I10 Active 77898795 Problem Other secondary hypertension I15.8 Active 78904588 Problem Pulmonary hypertension I27.2 Active 81305284 ALLERGIES No Information ENCOUNTERS Encounter Location Date Diagnosis [facility] [address] [address] May, [facility] [address] [address] Apr, Essential hypertension I10 [facility] [address] [address] Mar, Essential hypertension I10 and Acute superficial gastritis without hemorrhage K29.00 [place] [address] [address] Feb, [facility] [address] [address] Feb, Essential hypertension I10 [facility] [address] [address] Feb, [facility] [address] [address] Jan, [facility] [address] [address] Jan, Facial swelling R22.0 [facility] [id number] [place] [address]- [address] Dec, Essential hypertension I10 [facility] [address] [place] [id number] [place] [address] [phone]- 0735 Dec, Essential hypertension I10 [facility] [address] [id number] [place] [address] 24456- 3841 Nov, [facility] [address] [id number] [place] [address] 66364- 2548 Nov, Essential hypertension I10 and Subconjunctival hemorrhage of right eye H11.31 [facility] [address] [id number] [place] [address]70 [address]92 Nov, Essential hypertension I10 and Subconjunctival hemorrhage of right eye H11.31 [facility] [address] [id number] [place] [address] 79270- 6503 Sep, Essential hypertension I10 [facility] [address] [id number] [place] [address] 23409- 0166 Jul, Seasonal allergic rhinitis due to pollen J30.1 [facility] [address] [id number] [place] [address] 43961- 3578 Jul, [facility] [address] [id number] [place] [address] 06649- 5998 May, [facility] [address] [place] [id number] [place] [id number] May, [facility] [address] [id number] [place] [address] 41274- 6549 Apr, Essential hypertension I10 ; Seasonal allergic rhinitis due to pollen J30.1 and Drug-induced erectile dysfunction N52.2 [facility] [address] [place] [address] 95129- 1459 Apr, Essential hypertension I10 [facility] [address] [id number] [place] [address] 06460- 2114 Mar, [facility] [id number] [place] [address] 91115- 5761 Mar, Chest discomfort R07.89 ; Shortness of breath R06.02 ; Tobacco abuse Z72.0 ; Other secondary hypertension I15.8 ; Pulmonary hypertension I27.2 and Essential hypertension I10 [facility] [address] [id number] [place] [address] 69364- 2369 Feb, Essential hypertension I10 and Tobacco abuse Z72.0 [facility] [address] [id number] [place] [address] 59869- 5450 Feb, [facility] [address] [place] [id number] [place] [address] 93777- 3491 Feb, Essential hypertension I10 [facility] [id number] [place] [address] 61802- 4989 Jan, Essential hypertension I10 [facility] [address] [id number] [place] [address] [id number] Jan, Dental examination Z01.20 and Dental caries K02.9 [facility] [address] [id number] [place] [address] 76248- 8469 Jan, [facility] [address] [place] [id number] [place] [address] 10803- 0699 Jan, [facility] [address] [place] [id number] [place] [address] 15532- 5646 Jan, Essential hypertension I10 [facility] [id number] [place] [address] 06578- 9019 Jan, Essential hypertension I10 [facility] [address] [id number] [place] [address] 63611- 3905 Jan, [facility] [address] [id number] [place] [address] 13783- 0586 Jan, [facility] [address] [place] [id number] [place] [address] 97569- 0712 Jan, [facility] [address] [facility] [id number] [address] Jan, [facility] [address] [facility] [id number] [address] Jan, Hypertensive crisis I16.9 and Encounter to establish care Z76.89 [facility] [address] [facility] [id number] [address] Dec, IMMUNIZATIONS No Known Immunizations SOCIAL HISTORY Never Assessed REASON FOR VISIT Repository Medication PLAN OF CARE VITAL SIGNS MEDICATIONS Medication Instructions Dosage Frequency Start Date End Date Duration Status Chlorthalidone 25 MG Orally Once a day 1 tablet in the morning 24h 90 days Active Clonidine HCl 0.1 MG Orally Once a day 1 tablet at bedtime 24h 6 Months Active RESULTS No Results PROCEDURES No Known procedures INSTRUCTIONS MEDICATIONS ADMINISTERED No Known Medications MEDICAL (GENERAL) HISTORY Type Description Date Medical History Hypertension Medical History Chemical stress test neg for ischemia 05/2016 Hospitalization History hypertension 2xs in ICU for 2 days 2014 Hospitalization History HTN 2013
--- OUTSIDE RECORDS SUMMARY | 2018-02-08 23:55 | XMS REPORT ---
Author Author ROBERT PLASCENCIA Organization [facility] Address [address] [place] [address] Care Team Providers Care Edge Stainer Name Role Phone ROBERT PLASCENCIA Unavailable PROBLEMS Type Condition ICD9-CM Code [id number] Code Onset Dates Condition Status SNOMED Code Problem Drug-induced erectile dysfunction N52.2 Active 119913309 Problem Seasonal allergic rhinitis due to pollen J30.1 Active 21678585 Problem Essential hypertension I10 Active 13473651 Problem Other secondary hypertension I15.8 Active 89808667 Problem Pulmonary hypertension I27.2 Active 77403990 ALLERGIES No Information ENCOUNTERS Encounter Location Date Diagnosis [facility] [address] [address] 07 Mar, 2017 Essential hypertension I10 and Acute superficial gastritis without hemorrhage K29.00 [facility] [address] [address] Feb, [facility] [address] [address] Feb, Essential hypertension I10 [facility] [address] [address] Feb, [facility] [address] [address] Jan, [facility] [address] [address] Jan, Facial swelling R22.0 [facility] [address] [address]- [address] Dec, Essential hypertension I10 [facility] [address] [address]- 115[address] Dec, Essential hypertension I10 [facility] [address] [place] [id number] [place] [address] 45254- 7552 Nov, [facility] [address] [id number] [place] [address] 254915- 4867 Nov, Essential hypertension I10 and Subconjunctival hemorrhage of right eye H11.31 [facility] [id number] [place] [address] 62779 -[address]808 Nov, Essential hypertension I10 and Subconjunctival hemorrhage of right eye H11.31 [facility] [address] [place] [id number] [place] [address] 38512- 6907 Sep, Essential hypertension I10 [facility] [address] [place] [id number] [place] [address] 65014- 7762 Jul, Seasonal allergic rhinitis due to pollen J30.1 [facility] [address] [place] [address] [id number] [place] [address] 84577- 7307 Jul, [facility] [address] [place] [id number] [place] [address] 15670- 8490 May, [facility] [address] [place] [id number] [place] [address] [phone] May, [facility] [address] [place] [id number] [place] [address] 81107- 8274 Apr, Essential hypertension I10 ; Seasonal allergic rhinitis due to pollen J30.1 and Drug-induced erectile dysfunction N52.2 [facility] [address] [place] [address] 64116- 8087 Apr, Essential hypertension I10 [facility] [address] [place] [id number] [place] [address] 14465- 0843 Mar, [facility] [address] [place] [id number] [place] [address] 053341- 6982 08 Mar, 2016 Chest discomfort R07.89 ; Shortness of breath R06.02 ; Tobacco abuse Z72.0 ; Other secondary hypertension I15.8 ; Pulmonary hypertension I27.2 and Essential hypertension I10 [facility] [address] [place] [address] 35047- 2780 Feb, Essential hypertension I10 and Tobacco abuse Z72.0 [facility] [address] [place] [id number] [place] [address] 75607- 3350 Feb, [facility] [address] [place] [address] [id number] [place] [address] 60849- 7620 Feb, Essential hypertension I10 [facility] [address] [address] [id number] [place] [address] 47940- 2470 Jan, Essential hypertension I10 [facility] [id number] [place] [address] [id number] Jan, Dental examination Z01.20 and Dental caries K02.9 [facility] [address] [id number] [place] [address] 81509- 9677 Jan, [facility] [id number] [place] [address] 99746- 6141 Jan, [facility] [id number] [place] [address] 02612- 5932 Jan, Essential hypertension I10 [facility] [address] [place] [id number] [place] [address] 20965- 0558 Jan, Essential hypertension I10 [facility] [address] [place] [id number] [place] [address] 57547- 5234 Jan, [facility] [address] [place] [address] 25481- 0260 Jan, [facility] [address] [place] [place] [id number] [place] [address] 53586- 3863 Jan, [facility] [address] [place] [id number] [place] [address] 58242- 0833 Jan, [facility] [address] [place] [id number] [place] [address] 58954- 9936 Jan, Hypertensive crisis I16.9 and Encounter to establish care Z76.89 [facility] [address] [facility] [id number] [place] [address] Dec, IMMUNIZATIONS No Known Immunizations SOCIAL HISTORY Never Assessed REASON FOR VISIT Refill request PLAN OF CARE VITAL SIGNS MEDICATIONS Medication Instructions Dosage Frequency Start Date End Date Duration Status Amlodipine Besylate 10 MG Orally Once a day 1 tablet 24h 90 days Active Lisinopril 40 MG Orally Once a day 1 tablet 24h Jan, 90 days Active Aspirin EC 81 MG Orally Once a day 1 tablet 24h 30 days Active Lipitor 40 MG Orally Once a day 1 tablet 24h Active Loratadine 10 MG Orally Once a day 1 tablet 24h Apr, 30 days Active Clonidine HCl 0.1 MG Orally Once a day 1 tablet at bedtime 24h Active Atenolol 50 MG Orally 2 times a day 1 tablet 12h 12 Jan, 2016 Active Potassium Chloride CR 20 MEQ Orally Once a day 1 tablet 24h Active Chlorthalidone 25 MG Orally Once a [...]
--- OUTSIDE RECORDS SUMMARY | 2018-02-08 23:55 | XMS REPORT ---
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 Unknown Non Drug Allergy Jan, Unknown SOCIAL HISTORY No smoking Hx information available PLAN OF CARE Activity Details Follow Up 2 Months Reason:BP VITAL SIGNS Height 72 in 2016-01-31 Weight 224.9 lbs 2016-01-31 Temperature 98.3 degrees Fahrenheit 2016-01-31 Heart Rate 64 bpm 2016-01-31 Respiratory Rate 18 2016-01-31 BMI 30.50 kg/m2 2016-01-31 Blood pressure systolic 150 mmHg 2016-01-31 Blood pressure diastolic 110 mmHg 2016-01-31 MEDICATIONS Medication Instructions Dosage Frequency Start Date End Date Duration Status Atenolol 50 MG Orally Once a day 1 tablet 24h Jan, Active Amlodipine Besylate 10 MG Orally Once a day 1 tablet 24h Active Chlorthalidone 25 MG Orally Once a day 1 tablet in the morning 24h Active Potassium Chloride 20 MEQ Orally Once a day 1 packet with food 24h Active RESULTS No Results PROCEDURES Procedure Date Ordered Related Diagnosis Body Site Office Visit, Est Pt., Level 3 Jan 31, 2016 IMMUNIZATIONS No Known Immunizations
--- OUTSIDE RECORDS SUMMARY | 2018-02-08 23:55 | XMS REPORT ---
Author Author BRIDGETTE ANDUJAR [facility] Address Unknown Care Team Providers Care Media Center Specialist Name Role Phone BRIDGETTE ANDUJAR Unavailable PROBLEMS Type Condition ICD9-CM Code [id number] Code Onset Dates Condition Status SNOMED Code Problem Drug-induced erectile dysfunction N52.2 Active 421936739 Problem Seasonal allergic rhinitis due to pollen J30.1 Active 95414908 Problem Essential hypertension I10 Active 71419977 Problem Other secondary hypertension I15.8 Active 05554046 Problem Pulmonary hypertension I27.2 Active 01595758 ALLERGIES Substance Reaction Event Type Date Status N.K.D.A. Unknown Non Drug Allergy Jan, Unknown SOCIAL HISTORY No smoking Hx information available PLAN OF CARE Activity Details Follow Up prn Reason:prophy VITAL SIGNS Blood pressure systolic 139 mmHg 2016-02-07 Blood pressure diastolic 88 mmHg 2016-02-07 MEDICATIONS Medication Instructions Dosage Frequency Start Date End Date Duration Status Amoxicillin 500 MG Orally Three times a day 1 capsule 8h 7 days Active Chlorthalidone 25 MG Orally Once a day 1 tablet in the morning 24h Active Atenolol 50 MG Orally Once a day 1 tablet 24h Jan, Active Amlodipine Besylate 10 MG Orally Once a day 1 tablet 24h Active Potassium Chloride 20 MEQ Orally Once a day 1 packet with food 24h Active RESULTS No Results PROCEDURES Procedure Date Ordered Related Diagnosis Body Site LTD ORAL EVALUATION - PROBLEM FOCUS Feb 07, 2016 INTRAORL-PERIAPICAL 1 FILM 35800 Feb 07, 2016 EXTRAC ERUPTED TOOTH/EXPOSED ROOT Feb 07, 2016 BITEWING - SINGLE FILM Feb 07, 2016 EXTRAC ERUPTED TOOTH/EXPOSED ROOT Feb 07, 2016 IMMUNIZATIONS No Known Immunizations
--- OUTSIDE RECORDS SUMMARY | 2018-02-08 23:56 | XMS REPORT | Continuity of Care Document ---
Author Author [facility] Organization [facility] Address Unknown Phone Unavailable Allergies Active Description Code Type Severity Reaction Onset Reported/Identified Relationship to Patient Clinical Status Yes No Known Drug Allergies [id number] Drug Allergy Unknown N/A 01/16/2016 Medications There is no data. Problems Date Dx Coded Attending Type Code Diagnosis [facility]osed [facility] NO DIAGNOSIS OR CONDITION ON AXIS I 01/17/2016 FRANSISCO MCDOWELL MD Ot I16.1 HYPERTENSIVE EMERGENCY 01/17/2016 FRANSISCO MCDOWELL MD Ot I16.0 HYPERTENSIVE URGENCY 01/17/2016 FRANSISCO MCDOWELL MD Ot I16.1 HYPERTENSIVE EMERGENCY 01/17/2016 FRANSISCO MCDOWELL MD Ot I27.2 OTHER SECONDARY PULMONARY HYPERTENSION 01/17/2016 FRANSISCO MCDOWELL MD Ot I51.7 CARDIOMEGALY 01/17/2016 FRANSISCO MCDOWELL MD Ot R51 HEADACHE 05/12/2016 FRANSISCO MCDOWELL MD Ot F17.210 NICOTINE DEPENDENCE, CIGARETTES, UNCOMPL 05/12/2016 FRANSISCO MCDOWELL MD Ot I10 ESSENTIAL (PRIMARY) HYPERTENSION 05/12/2016 FRANSISCO MCDOWELL MD Ot N28.9 DISORDER OF KIDNEY AND URETER, UNSPECIFI 05/12/2016 FRANSISCO MCDOWELL MD Ot R00.1 BRADYCARDIA, UNSPECIFIED 05/12/2016 FRANSISCO MCDOWELL MD Ot R07.9 CHEST PAIN, UNSPECIFIED 05/12/2016 FRANSISCO MCDOWELL MD Ot R09.89 OT SYMPTOMS AND SIGNS INVOLVING THE CIR 05/12/2016 FRANSISCO MCDOWELL MD Ot R22.41 LOCALIZED SWELLING, MASS AND LUMP, RIGHT 05/12/2016 FRANSISCO MCDOWELL MD Ot R79.1 ABNORMAL COAGULATION PROFILE 05/15/2016 Rehan BAER MD Ot I16.0 HYPERTENSIVE URGENCY 05/24/2016 Rehan BAER MD Ot I10 ESSENTIAL (PRIMARY) HYPERTENSION 05/24/2016 Rehan BAER MD Ot I25.10 ATHSCL HEART DISEASE OF [place] CORONARY 05/24/2016 Rehan BAER MD Ot R07.89 OTHER CHEST PAIN 05/24/2016 Rehan BAER MD Ot R94.39 ABNORMAL RESULT OF OTHER CARDIOVASCULAR 05/24/2016 Rehan BAER MD Ot Z72.0 TOBACCO USE 05/24/2016 Rehan BAER MD Ot Z79.899 OTHER [facility] (CURRENT) DRUG THERAPY 06/05/2016 Rehan BAER MD Ot I16.0 HYPERTENSIVE URGENCY 06/05/2016 Rehan BAER MD Ot I10 ESSENTIAL (PRIMARY) HYPERTENSION 06/05/2016 Rehan BAER MD Ot I25.10 ATHSCL HEART DISEASE OF [place] CORONARY 06/05/2016 Rehan BAER MD Ot R07.89 OTHER CHEST PAIN 06/05/2016 Rehan BAER MD Ot R94.39 ABNORMAL RESULT OF OTHER CARDIOVASCULAR 06/05/2016 Rehan BAER MD Ot Z72.0 TOBACCO USE 06/05/2016 Rehan BAER MD Ot Z79.899 OTHER [facility] (CURRENT) DRUG THERAPY 12/19/2016 Rehan BAER MD Ot I16.0 HYPERTENSIVE URGENCY 12/20/2016 Rehan BAER MD Ot I12.9 HYPERTENSIVE CHRONIC KIDNEY DISEASE W ST 12/20/2016 Rehan BAER MD Ot N18.9 CHRONIC KIDNEY DISEASE, UNSPECIFIED 01/08/2017 Rehan BAER MD Ot I12.9 HYPERTENSIVE CHRONIC KIDNEY DISEASE W ST 01/08/2017 Rehan BAER MD Ot N18.9 CHRONIC KIDNEY DISEASE, UNSPECIFIED 02/14/2017 Rehan BAER MD Ot N18.9 CHRONIC KIDNEY DISEASE, UNSPECIFIED 05/15/2017 TATYANA BAER MD R Ot I12.9 HYPERTENSIVE CHRONIC KIDNEY DISEASE W ST 05/15/2017 TATYANA BAER MD R Ot N18.2 CHRONIC KIDNEY DISEASE, STAGE 2 (MILD) 05/15/2017 TATYANA BAER MD R Ot R80.8 OTHER PROTEIN[place] 08/15/2017 BUFFY ANDERSON, Rehan DAMON Ot I16.0 HYPERTENSIVE URGENCY 08/15/2017 BUFFY ANDERSON, Rehan DAMON Ot I12.9 HYPERTENSIVE CHRONIC KIDNEY DISEASE W ST 08/15/2017 BUFFY ANDERSON, Rehan DAMON Ot N18.9 CHRONIC KIDNEY DISEASE, UNSPECIFIED 08/15/2017 BUFFY ANDERSON, Rehan DAMON Ot N18.9 CHRONIC KIDNEY DISEASE, UNSPECIFIED 08/15/2017 TATYANA BAER MD R Ot I12.9 HYPERTENSIVE CHRONIC KIDNEY DISEASE W ST 08/15/2017 TATYANA BAER MD R Ot N18.2 CHRONIC KIDNEY DISEASE, STAGE 2 (MILD) 08/15/2017 TATYANA BAER MD R Ot R80.8 OTHER PROTEIN[place] 08/15/2017 TATYANA BAER MD R Ot I12.9 HYPERTENSIVE CHRONIC KIDNEY DISEASE W ST 08/15/2017 TATYANA BAER MD R Ot N18.2 CHRONIC KIDNEY DISEASE, STAGE 2 (MILD) 08/15/2017 TATYANA BAER MD R Ot R80.8 OTHER PROTEINUR[place] 08/15/2017 BUFFY ANDERSON, Rehan DAMON Ot N18.9 CHRONIC KIDNEY DISEASE, UNSPECIFIED 08/15/2017 Rehan BAER MD Ot N18.9 CHRONIC KIDNEY DISEASE, UNSPECIFIED 08/15/2017 TATYANA BAER MD R Ot E55.9 VITAMIN D DEFICIENCY, UNSPECIFIED 08/15/2017 TATYANA BAER MD R Ot I12.9 HYPERTENSIVE CHRONIC KIDNEY DISEASE W ST 08/15/2017 TATYANA BAER MD R Ot N18.2 CHRONIC KIDNEY DISEASE, STAGE 2 (MILD) 08/15/2017 TATYANA BAER MD R Ot R80.8 OTHER PROTEIN[place] 08/19/2017 TATYANA BAER MD R Ot E55.9 VITAMIN D DEFICIENCY, UNSPECIFIED 08/19/2017 TATYANA BAER MD R Ot I12.9 HYPERTENSIVE CHRONIC KIDNEY DISEASE W ST 08/19/2017 TATYANA BAER MD R Ot N18.2 CHRONIC KIDNEY DISEASE, STAGE 2 (MILD) 08/19/2017 TATYANA BAER MD, Ot R80.8 OTHER PROTEINUR[place] 10/17/2017 TATYANA BAER MD, Ot E55.9 VITAMIN D DEFICIENCY, UNSPECIFIED 10/17/2017 TATYANA BAER MD, Ot I12.9 HYPERTENSIVE CHRONIC KIDNEY DISEASE W ST 10/17/2017 TATYANA BAER MD, Ot N18.2 CHRONIC KIDNEY DISEASE, STAGE 2 (MILD) 10/17/2017 TATYANA BAER MD, Ot R80.8 OTHER PROTEINUR[place] 10/17/2017 TATYANA BAER MD, Ot I12.9 HYPERTENSIVE CHRONIC KIDNEY DISEASE W ST 10/17/2017 TATYANA BAER MD, Ot N18.2 CHRONIC KIDNEY DISEASE, STAGE 2 (MILD) 10/17/2017 TATYANA BAER MD, Ot R80.8 OTHER [place] Procedures Code Description Performed By Performed On [facility] 09/20/2014 Results Test Result Range Complete blood count (CBC) with automated white blood cell (WBC) differential - 01/16/16 16:31 Blood leukocytes automated count (number/volume) 4.9 10*3/uL 4.3-11.0 Blood erythrocytes automated count (number/volume) 4.11 10*6/uL 4.35-5.85 Venous blood hemoglobin measurement (mass/volume) 13.9 g/dL 13.3-17.7 Blood hematocrit (volume fraction) 38 % 40-54 Automated erythrocyte mean corpuscular volume 92 [foz_us] 80-99 Automated erythrocyte mean corpuscular hemoglobin (mass per erythrocyte) 34 pg 25-34 Automated erythrocyte mean corpuscular hemoglobin concentration measurement ( mass/volume) 37 g/dL 32-36 Automated erythrocyte distribution width ratio 12.6 % 10.0-14.5 Automated blood platelet count (count/volume) 228 10*3/uL 130-400 Automated blood platelet mean volume measurement 10.0 [foz_us] 7.4-10.4 Automated blood neutrophils/100 leukocytes 57 % 42-75 Automated blood lymphocytes/100 leukocytes 30 % 12-44 Blood monocytes/100 leukocytes 12 % 0-12 Automated blood eosinophils/100 leukocytes 1 % 0-10 Automated blood basophils/100 leukocytes 0 % 0-10 Blood neutrophils automated count (number/volume) 2.8 10*3 1.8-7.8 Blood lymphocytes automated count (number/volume) 1.5 10*3 1.0-4.0 Blood monocytes automated count (number/volume) 0.6 10*3 0.0-1.0 Automated eosinophil count 0.1 10*3/uL 0.0-0.3 Automated blood basophil count (count/volume) 0.0 10*3/uL 0.0-0.1 Comprehensive metabolic panel - 01/16/16 16:31 Serum or plasma sodium measurement (moles/volume) 141 mmol/L 135-145 Serum or plasma potassium measurement (moles/volume) 4.0 mmol/L 3.6-5.0 Serum or plasma chloride measurement (moles/volume) 109 mmol/L 98-107 Carbon dioxide 23 mmol/L 21-32 Serum or plasma anion gap determination (moles/volume) 9 mmol/L 5-14 Serum or plasma urea nitrogen measurement (mass/volume) 19 mg/dL 7-18 Serum or plasma creatinine measurement (mass/volume) 1.23 mg/dL 0.60-1.30 Serum or plasma urea nitrogen/creatinine mass ratio 15 NRG Serum or plasma creatinine measurement with calculation of estimated glomerular filtration rate > NRG Serum or plasma glucose measurement (mass/volume) 110 mg/dL 70-105 Serum or plasma calcium measurement (mass/volume) 8.8 mg/dL 8.5-10.1 Serum or plasma total bilirubin measurement (mass/volume) 0.4 mg/dL 0.1-1.0 Serum or plasma alkaline phosphatase measurement (enzymatic activity/volume) 66 U/L 40-136 Serum or plasma aspartate aminotransferase measurement (enzymatic activity/ volume) 23 U/L 5-34 Serum or plasma alanine aminotransferase measurement (enzymatic activity/volume ) 24 U/L 0-55 Serum or plasma protein measurement (mass/volume) 6.4 g/dL 6.4-8.2 Serum or plasma albumin measurement (mass/volume) 3.5 g/dL 3.2-4.5 Serum or plasma creatine kinase measurement (enzymatic activity/volume) - 01/15 16:31 Serum or plasma creatine kinase measurement (enzymatic activity/volume) 315 U/L 30-200 Serum or plasma creatine kinase MB measurement (enzymatic activity/volume) - 16:31 Serum or plasma creatine kinase MB measurement (enzymatic activity/volume) 5.7 ng/mL <6.6 Serum or plasma troponin i.cardiac measurement (mass/volume) - 01/16/16 16:31 Serum or plasma troponin i.cardiac measurement (mass/volume) < ng/ mL <0.30 Lipid 1996 panel - 01/16/16 16:31 Serum or plasma triglyceride measurement (mass/volume) 130 mg/dL <150 Serum or plasma cholesterol measurement (mass/volume) 157 mg/dL < 200 Serum or plasma cholesterol in HDL measurement (mass/volume) 33 mg/ dL 40-60 Cholesterol in LDL [mass/volume] in serum or plasma by direct assay 102 mg/dL 1-129 Serum or plasma cholesterol in VLDL measurement (mass/volume) 26 mg/ dL 5-40 Hemoglobin A1c - 01/16/16 16:31 Hemoglobin A1c 5.2 % 4.5-6.2 Methicillin resistant Staphylococcus aureus (MRSA) screening culture - 17:57 Methicillin resistant Staphylococcus aureus (MRSA) screening culture NEG NRG Complete blood count (CBC) with automated white blood cell (WBC) differential - 01/17/16 04:57 Blood leukocytes automated count (number/volume) 4.9 10*3/uL 4.3-11.0 Blood erythrocytes automated count (number/volume) 4.56 10*6/uL 4.35-5.85 Venous blood hemoglobin measurement (mass/volume) 15.3 g/dL 13.3-17.7 Blood hematocrit (volume fraction) 41 % 40-54 Automated erythrocyte mean corpuscular volume 91 [foz_us] 80-99 Automated erythrocyte mean corpuscular hemoglobin (mass per erythrocyte) 34 pg 25-34 Automated erythrocyte mean corpuscular hemoglobin concentration measurement ( mass/volume) 37 g/dL 32-36 Automated erythrocyte distribution width ratio 12.6 % 10.0-14.5 Automated blood platelet count (count/volume) 229 10*3/uL 130-400 Automated blood platelet mean volume measurement 9.5 [foz_us] 7.4-10.4 Automated blood neutrophils/100 leukocytes 52 % 42-75 Automated blood lymphocytes/100 leukocytes 34 % 12-44 Blood monocytes/100 leukocytes 12 % 0-12 Automated blood eosinophils/100 leukocytes 2 % 0-10 Automated blood basophils/100 leukocytes 0 % 0-10 Blood neutrophils automated count (number/volume) 2.5 10*3 1.8-7.8 Blood lymphocytes automated count (number/volume) 1.7 10*3 1.0-4.0 Blood monocytes automated count (number/volume) 0.6 10*3 0.0-1.0 Automated eosinophil count 0.1 10*3/uL 0.0-0.3 Automated blood basophil count (count/volume) 0.0 10*3/uL 0.0-0.1 Whole blood basic metabolic panel - 01/17/16 04:57 Serum or plasma sodium measurement (moles/volume) 138 mmol/L 135-145 Serum or plasma potassium measurement (moles/volume) 3.6 mmol/L 3.6-5.0 Serum or plasma chloride measurement (moles/volume) 107 mmol/L 98-107 Carbon dioxide 23 mmol/L 21-32 Serum or plasma anion gap determination (moles/volume) 8 mmol/L 5-14 Serum or plasma urea nitrogen measurement (mass/volume) 13 mg/dL 7-18 Serum or plasma creatinine measurement (mass/volume) 0.98 mg/dL 0.60-1.30 Serum or plasma urea nitrogen/creatinine mass ratio 13 NRG Serum or plasma creatinine measurement with calculation of estimated glomerular filtration rate > NRG Serum or plasma glucose measurement (mass/volume) 102 mg/dL 70-105 Serum or plasma calcium measurement (mass/volume) 8.8 mg/dL 8.5-10.1 Serum or plasma phosphate measurement (mass/volume) - 01/17/16 04:57 Serum or plasma phosphate measurement (mass/volume) 2.8 mg/dL 2.3-4.7 Magnesium - 01/17/16 04:57 Magnesium 1.7 mg/dL 1.8-2.4 Complete blood count (CBC) with automated white blood cell (WBC) differential - 05/12/16 01:00 Blood leukocytes automated count (number/volume) 5.9 10*3/uL 4.3-11.0 Blood erythrocytes automated count (number/volume) 4.03 10*6/uL 4.35-5.85 Venous blood hemoglobin measurement (mass/volume) 13.7 g/dL 13.3-17.7 Blood hematocrit (volume fraction) 36 % 40-54 Automated erythrocyte mean corpuscular volume 89 [foz_us] 80-99 Automated erythrocyte mean corpuscular hemoglobin (mass per erythrocyte) 34 pg 25-34 Automated erythrocyte mean corpuscular hemoglobin concentration measurement ( mass/volume) 38 g/dL 32-36 Automated erythrocyte distribution width ratio 12.9 % 10.0-14.5 Automated blood platelet count (count/volume) 365 10*3/uL 130-400 Automated blood platelet mean volume measurement 9.0 [foz_us] 7.4-10.4 Automated blood neutrophils/100 leukocytes 47 % 42-75 Automated blood lymphocytes/100 leukocytes 43 % 12-44 Blood monocytes/100 leukocytes 9 % 0-12 Automated blood eosinophils/100 leukocytes 1 % 0-10 Automated blood basophils/100 leukocytes 0 % 0-10 Blood neutrophils automated count (number/volume) 2.8 10*3 1.8-7.8 Blood lymphocytes automated count (number/volume) 2.6 10*3 1.0-4.0 Blood monocytes automated count (number/volume) 0.5 10*3 0.0-1.0 Automated eosinophil count 0.0 10*3/uL 0.0-0.3 Automated blood basophil count (count/volume) 0.0 10*3/uL 0.0-0.1 PT panel in platelet poor plasma by coagulation assay - 05/12/16 01:00 Prothrombin time (PT) in platelet poor plasma by coagulation assay 13.3 s 12.2-14.7 INR in platelet poor plasma or blood by coagulation assay 1.0 0.8-1.4 Activated partial thromboplastin time (aPTT) in platelet poor plasma bycoagulation assay - 05/12/16 01:00 Activated partial thromboplastin time (aPTT) in platelet poor plasma bycoagulation assay 26 s 24-35 Comprehensive metabolic panel - 05/12/16 01:00 Serum or plasma sodium measurement (moles/volume) 140 mmol/L 135-145 Serum or plasma potassium measurement (moles/volume) 3.3 mmol/L 3.6-5.0 Serum or plasma chloride measurement (moles/volume) 104 mmol/L 98-107 Carbon dioxide 23 mmol/L 21-32 Serum or plasma anion gap determination (moles/volume) 13 mmol/L 5-14 Serum or plasma urea nitrogen measurement (mass/volume) 18 mg/dL 7-18 Serum or plasma creatinine measurement (mass/volume) 1.46 mg/dL 0.60-1.30 Serum or plasma urea nitrogen/creatinine mass ratio 12 NRG Serum or plasma creatinine measurement with calculation of estimated glomerular filtration rate > NRG Serum or plasma glucose measurement (mass/volume) 101 mg/dL 70-105 Serum or plasma calcium measurement (mass/volume) 8.9 mg/dL 8.5-10.1 Serum or plasma total bilirubin measurement (mass/volume) 0.3 mg/dL 0.1-1.0 Serum or plasma alkaline phosphatase measurement (enzymatic activity/volume) 74 U/L 40-136 Serum or plasma aspartate aminotransferase measurement (enzymatic activity/ volume) 15 U/L 5-34 Serum or plasma alanine aminotransferase measurement (enzymatic activity/volume ) 8 U/L 0-55 Serum or plasma protein measurement (mass/volume) 7.6 g/dL 6.4-8.2 Serum or plasma albumin measurement (mass/volume) 3.7 g/dL 3.2-4.5 Magnesium - 05/12/16 01:00 Magnesium 2.2 mg/dL 1.8-2.4 Serum or plasma troponin i.cardiac measurement (mass/volume) - 05/12/16 01:00 Serum or plasma troponin i.cardiac measurement (mass/volume) < ng/ mL <0.30 Myoglobin, serum - 05/12/16 01:00 Myoglobin, serum 59.8 ng/mL 10.0-92.0 Fibrin D-dimer FEU measurement in platelet poor plasma (mass/volume) - 01:00 Fibrin D-dimer FEU measurement in platelet poor plasma (mass/volume) 1.54 ug/mL 0.00-0.49 Whole blood basic metabolic panel - 05/12/16 07:30 Serum or plasma sodium measurement (moles/volume) 140 mmol/L 135-145 Serum or plasma potassium measurement (moles/volume) 3.7 mmol/L 3.6-5.0 Serum or plasma chloride measurement (moles/volume) 107 mmol/L 98-107 Carbon dioxide 24 mmol/L 21-32 Serum or plasma anion gap determination (moles/volume) 9 mmol/L 5-14 Serum or plasma urea nitrogen measurement (mass/volume) 19 mg/dL 7-18 Serum or plasma creatinine measurement (mass/volume) 1.58 mg/dL 0.60-1.30 Serum or plasma urea nitrogen/creatinine mass ratio 12 NRG Serum or plasma creatinine measurement with calculation of estimated glomerular filtration rate 56 NRG Serum or plasma glucose measurement (mass/volume) 98 mg/dL 70-105 Serum or plasma calcium measurement (mass/volume) 8.4 mg/dL 8.5-10.1 Serum or plasma troponin i.cardiac measurement (mass/volume) - 05/12/16 07:30 Serum or plasma troponin i.cardiac measurement (mass/volume) < ng/ mL <0.30 Lipid 1996 panel - 05/12/16 07:30 Serum or plasma triglyceride measurement (mass/volume) 231 mg/dL <150 Serum or plasma cholesterol measurement (mass/volume) 128 mg/dL < 200 Serum or plasma cholesterol in HDL measurement (mass/volume) 20 mg/ dL 40-60 Cholesterol in LDL [mass/volume] in serum or plasma by direct assay 74 mg/dL 1-129 Serum or plasma cholesterol in VLDL measurement (mass/volume) 46 mg/ dL 5-40 Automated blood complete blood count (hemogram) panel - 05/24/16 08:32 Blood leukocytes automated count (number/volume) 4.4 10*3/uL 4.3-11.0 Blood erythrocytes automated count (number/volume) 4.02 10*6/uL 4.35-5.85 Venous blood hemoglobin measurement (mass/volume) 13.5 g/dL 13.3-17.7 Blood hematocrit (volume fraction) 37 % 40-54 Automated erythrocyte mean corpuscular volume 91 [foz_us] 80-99 Automated erythrocyte mean corpuscular hemoglobin (mass per erythrocyte) 34 pg 25-34 Automated erythrocyte mean corpuscular hemoglobin concentration measurement ( mass/volume) 37 g/dL 32-36 Automated erythrocyte distribution width ratio 13.2 % 10.0-14.5 Automated blood platelet count (count/volume) 301 10*3/uL 130-400 Automated blood platelet mean volume measurement 8.9 [foz_us] 7.4-10.4 Comprehensive metabolic panel - 05/24/16 08:32 Serum or plasma sodium measurement (moles/volume) 140 mmol/L 135-145 Serum or plasma potassium measurement (moles/volume) 3.9 mmol/L 3.6-5.0 Serum or plasma chloride measurement (moles/volume) 107 mmol/L 98-107 Carbon dioxide 23 mmol/L 21-32 Serum or plasma anion gap determination (moles/volume) 10 mmol/L 5-14 Serum or plasma urea nitrogen measurement (mass/volume) 16 mg/dL 7-18 Serum or plasma creatinine measurement (mass/volume) 1.49 mg/dL 0.60-1.30 Serum or plasma urea nitrogen/creatinine mass ratio 11 NRG Serum or plasma creatinine measurement with calculation of estimated glomerular filtration rate 60 NRG Serum or plasma glucose measurement (mass/volume) 106 mg/dL 70-105 Serum or plasma calcium measurement (mass/volume) 8.9 mg/dL 8.5-10.1 Serum or plasma total bilirubin measurement (mass/volume) 0.4 mg/dL 0.1-1.0 Serum or plasma alkaline phosphatase measurement (enzymatic activity/volume) 71 U/L 40-136 Serum or plasma aspartate aminotransferase measurement (enzymatic activity/ volume) 17 U/L 5-34 Serum or plasma alanine aminotransferase measurement (enzymatic activity/volume ) 12 U/L 0-55 Serum or plasma protein measurement (mass/volume) 7.3 g/dL 6.4-8.2 Serum or plasma albumin measurement (mass/volume) 3.8 g/dL 3.2-4.5 PT panel in platelet poor plasma by coagulation assay - 05/24/16 08:32 Prothrombin time (PT) in platelet poor plasma by coagulation assay 12.8 s 12.2-14.7 INR in platelet poor plasma or blood by coagulation assay 1.0 0.8-1.4 Activated partial thromboplastin time (aPTT) in platelet poor plasma bycoagulation assay - 05/24/16 08:32 Activated partial thromboplastin time (aPTT) in platelet poor plasma bycoagulation assay 26 s 24-35 Methicillin resistant Staphylococcus aureus (MRSA) screening culture - 08:32 Methicillin resistant Staphylococcus aureus (MRSA) screening culture NEG NRG BMP - 12/05/16 17:33 Glucose, Serum 97 mg/dL 65-99 BUN 19 mg/dL 6-24 Creatinine, Serum 1.52 mg/dL 0.76-1.27 eGFR If NonAfricn Am 51 mL/min/1.73 >59 eGFR If Africn Am 59 mL/min/1.73 >59 BUN/Creatinine Ratio 13 9-20 Sodium, Serum 139 mmol/L 134-144 Potassium, Serum 3.9 mmol/L 3.5-5.2 Chloride, Serum 99 mmol/L 96-106 Carbon Dioxide, Total 23 mmol/L 18-29 Calcium, Serum 9.5 mg/dL 8.7-10.2 Basic Metabolic Panel (8) - 12/05/16 17:33 Glucose, Serum 97 mg/dL 65-99 BUN 19 mg/dL 6-24 Creatinine, Serum 1.52 mg/dL 0.76-1.27 eGFR If NonAfricn Am 51 mL/min/1.73 >59 eGFR If Africn Am 59 mL/min/1.73 >59 BUN/Creatinine Ratio 13 9-20 Sodium, Serum 139 mmol/L 134-144 Potassium, Serum 3.9 mmol/L 3.5-5.2 Chloride, Serum 99 mmol/L 96-106 Carbon Dioxide, Total 23 mmol/L 18-29 Calcium, Serum 9.5 mg/dL 8.7-10.2 Complete blood count (CBC) with automated white blood cell (WBC) differential - 05/14/17 12:58 Blood leukocytes automated count (number/volume) 3.7 10*3/uL 4.3-11.0 Blood erythrocytes automated count (number/volume) 4.44 10*6/uL 4.35-5.85 Venous blood hemoglobin measurement (mass/volume) 15.7 g/dL 13.3-17.7 Blood hematocrit (volume fraction) 42 % 40-54 Automated erythrocyte mean corpuscular volume 95 [foz_us] 80-99 Automated erythrocyte mean corpuscular hemoglobin (mass per erythrocyte) 35 pg 25-34 Automated erythrocyte mean corpuscular hemoglobin concentration measurement ( mass/volume) 37 g/dL 32-36 Automated erythrocyte distribution width ratio 13.6 % 10.0-14.5 Automated blood platelet count (count/volume) 210 10*3/uL 130-400 Automated blood platelet mean volume measurement 9.8 [foz_us] 7.4-10.4 Automated blood neutrophils/100 leukocytes 48 % 42-75 Automated blood lymphocytes/100 leukocytes 39 % 12-44 Blood monocytes/100 leukocytes 11 % 0-12 Automated blood eosinophils/100 leukocytes 1 % 0-10 Automated blood basophils/100 leukocytes 1 % 0-10 Blood neutrophils automated count (number/volume) 1.8 10*3 1.8-7.8 Blood lymphocytes automated count (number/volume) 1.5 10*3 1.0-4.0 Blood monocytes automated count (number/volume) 0.4 10*3 0.0-1.0 Automated eosinophil count 0.0 10*3/uL 0.0-0.3 Automated blood basophil count (count/volume) 0.0 10*3/uL 0.0-0.1 Serum or plasma renal function panel (Na, K, Cl, CO2, BUN, Cr, glucose,Ca, phos , alb) - 05/14/17 12:58 Serum or plasma sodium measurement (moles/volume) 140 mmol/L 135-145 Serum or plasma potassium measurement (moles/volume) 3.9 mmol/L 3.6-5.0 Serum or plasma chloride measurement (moles/volume) 102 mmol/L 98-107 Carbon dioxide 24 mmol/L 21-32 Serum or plasma anion gap determination (moles/volume) 14 mmol/L 5-14 Serum or plasma urea nitrogen measurement (mass/volume) 14 mg/dL 7-18 Serum or plasma creatinine measurement (mass/volume) 1.27 mg/dL 0.60-1.30 Serum or plasma urea nitrogen/creatinine mass ratio 11 NRG Serum or plasma creatinine measurement with calculation of estimated glomerular filtration rate > NRG Serum or plasma glucose measurement (mass/volume) 79 mg/dL 70-105 Serum or plasma calcium measurement (mass/volume) 10.0 mg/dL 8.5-10.1 Serum or plasma albumin measurement (mass/volume) 4.6 g/dL 3.2-4.5 Serum or plasma phosphate measurement (mass/volume) 2.5 mg/dL 2.3-4.7 Serum or plasma uric acid measurement (mass/volume) - 05/14/17 12:58 Serum or plasma uric acid measurement (mass/volume) 6.5 mg/dL 2.6-7.2 Magnesium - 05/14/17 12:58 Magnesium 1.7 mg/dL 1.8-2.4 Urine protein/creatinine mass ratio - 05/14/17 12:58 Urine protein measurement (mass/volume) 241 mg/dL 6-12 Urine creatinine measurement (mass/volume) 311 mg/dL 30- 125 Urine protein/creatinine mass ratio 0.77 NRG THYROID STIMULATING HORMONE - 05/14/17 12:58 THYROID STIMULATING HORMONE 0.72 u[iU]/mL 0.35-4.94 Complete urinalysis with reflex to culture - 05/14/17 12:58 Urine color determination GISELA NRG Urine clarity determination CLEAR NRG Urine pH measurement by test strip 5 5-9 Specific gravity of urine by test strip 1.025 1.016- 1.022 Urine protein assay by test strip, semi-quantitative 3+ NEGATIVE Urine glucose detection by automated test strip NEGATIVE NEGATIVE Erythrocytes detection in urine sediment by light microscopy 1+ NEGATIVE Urine ketones detection by automated test strip 2+ NEGATIVE Urine nitrite detection by test strip NEGATIVE NEGATIVE Urine total bilirubin detection by test strip 1+ NEGATIVE Urine urobilinogen measurement by automated test strip (mass/volume) 4 mg/dL NORMAL Urine leukocyte esterase detection by dipstick 1+ NEGATIVE Automated urine sediment erythrocyte count by microscopy (number/high power field) [HPF] NRG Automated urine sediment leukocyte count by microscopy (number/high power field ) RARE NRG Bacteria detection in urine sediment by light microscopy TRACE NRG Squamous epithelial cells detection in urine sediment by light microscopy 2-5 NRG Crystals detection in urine sediment by light microscopy NONE NRG Casts detection in urine sediment by light microscopy NONE NRG Mucus detection in urine sediment by light microscopy NEGATIVE NRG Complete urinalysis with reflex to culture YES NRG VITAMIN D 25-HYDROXY - 05/14/17 12:58 VITAMIN D 25-HYDROXY (TOTAL) 16 % 30-100 Serum or plasma cortisol measurement (mass/volume) - 05/14/17 12:58 Cortisol PM 12.0 % 3.0-16.0 Serum or plasma intact pararthyroid hormone measurement (mass/volume) - 12:58 Serum or plasma intact parathyroid hormone measurement (mass/volume) 58.0 pg/mL 10.0-65.0 Bio-intact parathyroid hormone (PTH) measurement with calcium 9.7 % 8.5-10.5 Bacterial urine culture - 05/14/17 12:58 URINE CULTURE RESULTS <10,000/ML NRG Serum or plasma metanephrines measurement (mass/volume) - 05/14/17 12:58 Serum or plasma metanephrines measurement (mass/volume) See Note % NRG Serum or plasma normetanephrine measurement (moles/volume) 0.60 % 0.00-0.89 Complete blood count (CBC) with automated white blood cell (WBC) differential - 08/13/17 16:10 Blood leukocytes automated count (number/volume) 4.3 10*3/uL 4.3-11.0 Blood erythrocytes automated count (number/volume) 4.32 10*6/uL 4.35-5.85 Venous blood hemoglobin measurement (mass/volume) 14.6 g/dL 13.3-17.7 Blood hematocrit (volume fraction) 40 % 40-54 Automated erythrocyte mean corpuscular volume 92 [foz_us] 80-99 Automated erythrocyte mean corpuscular hemoglobin (mass per erythrocyte) 34 pg 25-34 Automated erythrocyte mean corpuscular hemoglobin concentration measurement ( mass/volume) 37 g/dL 32-36 Automated erythrocyte distribution width ratio 13.0 % 10.0-14.5 Automated blood platelet count (count/volume) 211 10*3/uL 130-400 Automated blood platelet mean volume measurement 9.7 [foz_us] 7.4-10.4 Automated blood neutrophils/100 leukocytes 61 % 42-75 Automated blood lymphocytes/100 leukocytes 29 % 12-44 Blood monocytes/100 leukocytes 9 % 0-12 Automated blood eosinophils/100 leukocytes 1 % 0-10 Automated blood basophils/100 leukocytes 0 % 0-10 Blood neutrophils automated count (number/volume) 2.6 10*3 1.8-7.8 Blood lymphocytes automated count (number/volume) 1.3 10*3 1.0-4.0 Blood monocytes automated count (number/volume) 0.4 10*3 0.0-1.0 Automated eosinophil count 0.0 10*3/uL 0.0-0.3 Automated blood basophil count (count/volume) 0.0 10*3/uL 0.0-0.1 Serum or plasma renal function panel (Na, K, Cl, CO2, BUN, Cr, glucose,Ca, phos , alb) - 08/13/17 16:10 Serum or plasma sodium measurement (moles/volume) 140 mmol/L 135-145 Serum or plasma potassium measurement (moles/volume) 3.8 mmol/L 3.6-5.0 Serum or plasma chloride measurement (moles/volume) 105 mmol/L 98-107 Carbon dioxide 23 mmol/L 21-32 Serum or plasma anion gap determination (moles/volume) 12 mmol/L 5-14 Serum or plasma urea nitrogen measurement (mass/volume) 9 mg/dL 7-18 Serum or plasma creatinine measurement (mass/volume) 1.20 mg/dL 0.60-1.30 Serum or plasma urea nitrogen/creatinine mass ratio 8 NRG Serum or plasma creatinine measurement with calculation of estimated glomerular filtration rate > NRG Serum or plasma glucose measurement (mass/volume) 80 mg/dL 70-105 Serum or plasma calcium measurement (mass/volume) 9.4 mg/dL 8.5-10.1 Serum or plasma albumin measurement (mass/volume) 4.5 g/dL 3.2-4.5 Serum or plasma phosphate measurement (mass/volume) 2.6 mg/dL 2.3-4.7 Magnesium - 08/13/17 16:10 Magnesium 1.9 mg/dL 1.8-2.4 THYROID STIMULATING HORMONE - 08/13/17 16:10 THYROID STIMULATING HORMONE 2.34 u[iU]/mL 0.35-4.94 Complete urinalysis with reflex to culture - 08/13/17 16:33 Urine color determination YELLOW NRG Urine clarity determination CLEAR NRG Urine pH measurement by test strip 7 5-9 Specific gravity of urine by test strip 1.010 1.016- 1.022 Urine protein assay by test strip, semi-quantitative 3+ NEGATIVE Urine glucose detection by automated test strip NEGATIVE NEGATIVE Erythrocytes detection in urine sediment by light microscopy NEGATIVE NEGATIVE Urine ketones detection by automated test strip NEGATIVE NEGATIVE Urine nitrite detection by test strip NEGATIVE NEGATIVE Urine total bilirubin detection by test strip NEGATIVE NEGATIVE Urine urobilinogen measurement by automated test strip (mass/volume) NORMAL NORMAL Urine leukocyte esterase detection by dipstick NEGATIVE NEGATIVE Automated urine sediment erythrocyte count by microscopy (number/high power field) NONE NRG Automated urine sediment leukocyte count by microscopy (number/high power field ) RARE NRG Bacteria detection in urine sediment by light microscopy NEGATIVE NRG Crystals detection in urine sediment by light microscopy NONE NRG Casts detection in urine sediment by light microscopy NONE NRG Mucus detection in urine sediment by light microscopy NEGATIVE NRG Complete urinalysis with reflex to culture NO NRG Urine protein/creatinine mass ratio - 08/13/17 16:33 Urine protein measurement (mass/volume) 56 mg/dL 6-12 Urine creatinine measurement (mass/volume) 98 mg/dL 30- 125 Urine protein/creatinine mass ratio 0.57 NRG Encounters ACCT No. Visit Date/Time Discharge Status Pt. Type Provider Facility Loc./Unit Complaint [id number] 09/20/2014 16:27:00 09/20/2014 23:59:59 CLS Outpatient SPENCER CHAWLA [id number] 06/03/2017 13:40:00 06/03/2017 23:59:59 CLS Outpatient ROBERT PLASCENCIA APRN [facility] [id number] 12/05/2016 16:40:00 Document Registration [id number] 08/13/2017 15:39:00 08/13/2017 23:59:59 CLS Outpatient TATYANA BAER MD [facility] LAB CHRONIC KIDNEY DISEASE [id number] 05/14/2017 12:35:00 05/14/2017 23:59:59 CLS Outpatient TATYANA BAER MD [facility] LAB R80.8 [id number] 02/13/2017 15:39:00 02/13/2017 23:59:59 CLS Outpatient Rehan BAER MD [facility] LAB N18.9 [id number] 12/19/2016 09:07:00 12/19/2016 23:59:59 CLS Outpatient Rehan BAER MD [facility] RAD I10 HYPERTENSION [id number] 05/24/2016 08:06:00 05/24/2016 15:40:00 DIS Outpatient Rehan BAER MD [facility] CATH CHEST PAIN, ABN STRESS TEST [id number] 05/14/2016 11:08:00 05/14/2016 23:59:59 CLS Outpatient Rehan BAER MD [facility] CARD HYPERTENSIVE URGENCY [id number] 05/12/2016 03:12:00 05/12/2016 15:30:00 DIS Inpatient FRANSISCO MCDOWELL MD [facility] ICU CHEST PAIN,ELEVATED D- DIMER [id number] 01/16/2016 15:16:00 01/17/2016 15:50:00 DIS Inpatient FRANSISCO MCDOWELL MD [facility] ICU HYPERTENSION CRISIS [id number] 12/06/2016 08:40:00 Document Registration
[2018-02-08 23:59] LABS: MYOGLOBIN SERUM 83.3 NG/ML (10.0-92.0)
[2018-02-09] VITALS (23 sets, daily range): BP systolic 103–171; BP diastolic 59–104
[2018-02-09] MEDS ORDERED: CLOPIDOGREL 300 MG (PLAVIX) TABLET PO ONE (00:30)
--- OUTSIDE RECORDS SUMMARY | 2018-02-09 00:50 | XMS REPORT | Continuity of Care Document ---
Author Author [facility] Organization [facility] Address Unknown Phone Unavailable Allergies Active Description Code Type Severity Reaction Onset Reported/Identified Relationship to Patient Clinical Status Yes No Known Drug Allergies [id number] Drug Allergy Unknown N/A 01/16/2016 Medications There is no data. Problems Date Dx Coded Attending Type Code Diagnosis Diagnosed [facility] NO DIAGNOSIS OR CONDITION ON [...] MD Ot I25.10 ATHSCL HEART DISEASE OF [place] CORONARY 05/24/2016 Rehan BAER MD Ot R07.89 OTHER CHEST PAIN 05/24/2016 Rehan BAER MD Ot R94.39 ABNORMAL RESULT OF OTHER CARDIOVASCULAR 05/24/2016 Rehan BAER MD Ot Z72.0 TOBACCO USE 05/24/2016 Rehan BAER MD Ot Z79.899 OTHER [facility] (CURRENT) DRUG THERAPY 06/05/2016 Rehan BAER MD Ot I16.0 HYPERTENSIVE URGENCY 06/05/2016 Rehan BAER MD Ot I10 ESSENTIAL (PRIMARY) HYPERTENSION 06/05/2016 Rehan BAER MD Ot I25.10 ATHSCL HEART DISEASE OF [place] CORONARY 06/05/2016 Rehan BAER MD Ot R07.89 OTHER CHEST PAIN 06/05/2016 Rehan BAER MD Ot R94.39 ABNORMAL RESULT OF OTHER CARDIOVASCULAR 06/05/2016 Rehan BAER MD Ot Z72.0 TOBACCO USE 06/05/2016 Rehan BAER MD Ot Z79.899 OTHER [place] (CURRENT) DRUG THERAPY 12/19/2016 Rehan BAER MD [...] Procedures Code Description Performed By Performed On [facility] CASE MANAGEMENT 09/20/2014 Results Test Result Range [...] Status Pt. Type Provider Facility Loc./Unit Complaint [id number] 09/20/2014 16:27:00 09/20/2014 23:59:59 CLS Outpatient SPENCER CHAWLA [id number] 06/03/2017 13:40:00 06/03/2017 23:59:59 CLS Outpatient ROBERT PLASCENCIA APRN [facility] [id number] 12/05/2016 16:40:00 Document Registration [id number] 08/13/2017 15:39:00 08/13/2017 23:59:59 CLS Outpatient TATYANA BAER MD [facility] LAB CHRONIC KIDNEY DISEASE [id number] 05/14/2017 12:35:00 05/14/2017 23:59:59 CLS Outpatient TATYANA BAER MD [facility] LAB R80.8 [id number] 02/13/2017 15:39:00 02/13/2017 23:59:59 CLS Outpatient Rehan BAER MD [facility] LAB N18.9 [id number] 12/19/2016 09:07:00 12/19/2016 23:59:59 CLS Outpatient Rehan BAER MD [facility] RAD I10 HYPERTENSION [id number] 05/24/2016 08:06:00 05/24/2016 15:40:00 DIS Outpatient Rehan BAER MD [facility] CATH CHEST PAIN, ABN STRESS TEST [id number] 05/14/2016 11:08:00 05/14/2016 23:59:59 CLS Outpatient Rehan BAER MD [facility] CARD HYPERTENSIVE URGENCY [id number] 05/12/2016 03:12:00 05/12/2016 15:30:00 DIS Inpatient FRANSISCO MCDOWELL MD [facility] ICU CHEST PAIN,ELEVATED D- DIMER [id number] 01/16/2016 15:16:00 01/17/2016 15:50:00 DIS Inpatient FRANSISCO MCDOWELL MD [facility] ICU HYPERTENSION CRISIS [id number] 12/06/2016 08:40:00 Document Registration
[2018-02-09] MEDS: NS IV 1000 ML 1,000 ML IV SCH ×2 (01:28→10:16)
[2018-02-09] MEDS ORDERED: NS IV 1000 ML 1,000 ML ONE ×2 (01:28→09:59)
[2018-02-09] MEDS ORDERED: morphine INJ 4 MG/ML 1 ML (VIAL/SYRINGE) ONE ×2 (01:28→03:27)
[2018-02-09] MEDS ORDERED: ONDANSETRON 4 MG/2 ML (SDV) Z0FRAN IV PRN (03:45)
[2018-02-09] MEDS ORDERED: morphine INJ 4 MG/ML 1 ML (VIAL/SYRINGE) IV PRN (03:45)
[2018-02-09] MEDS ORDERED: ACETAMINOPHEN 500 MG TAB (TYLENOL) PO PRN (03:45)
[2018-02-09 05:49] LABS: CHOLESTEROL 158 MG/DL (< 200); HDL CHOLESTEROL 29 MG/DL (40-60); TRIGLYCERIDES 427 MG/DL (<150); VLDL CHOLESTEROL 85 MG/DL (5-40)
--- NOTE | 2018-02-09 07:22 | Diagnostic Imaging Report ---
EXAMINATION: Chest radiograph, portable AP view. DATE: February 08, 2018 at 2333 hours. INDICATION: 57-year-old male, chest pain. COMPARISON: May 12, 2016. FINDINGS: Stable overall appearance of the cardiomediastinal silhouette. There is no identified pneumothorax. There is no large pleural effusion. There is no identified focal airspace consolidation. IMPRESSION: No radiographically apparent acute cardiopulmonary abnormality. Dictated by: Dictated on workstation # [id number]
[2018-02-09 08:12] LABS: BASOPHILS % (AUTO) 1 % (0-10); EOSINOPHILS % (AUTO) 1 % (0-10); HEMATOCRIT 39 % (40-54); HEMOGLOBIN 13.8 G/DL (13.3-17.7); LYMPHOCYTES # (AUTO) 1.6 X 10^3 (1.0-4.0); LYMPHOCYTES % (AUTO) 40 % (12-44); MEAN CORPUSCULAR HEMOGLOBIN 34 PG (25-34); MEAN CORPUSCULAR HGB CONC 36 G/DL (32-36); MEAN CORPUSCULAR VOLUME 95 FL (80-99); MEAN PLATELET VOLUME 9.5 FL (7.4-10.4); MONOCYTES # (AUTO) 0.5 X 10^3 (0.0-1.0); MONOCYTES % (AUTO) 12 % (0-12); NEUTROPHILS # (AUTO) 1.9 X 10^3 (1.8-7.8); NEUTROPHILS % (AUTO) 47 % (42-75); PLATELET COUNT 200 10^3/uL (130-400); RED BLOOD COUNT 4.08 10^6/uL (4.35-5.85); RED CELL DISTRIBUTION WIDTH 13.2 % (10.0-14.5)
[2018-02-09 08:28] LABS: BUN/CREATININE RATIO 11; CALCIUM 8.4 MG/DL (8.5-10.1); CARBON DIOXIDE 21 MMOL/L (21-32); CHLORIDE 109 MMOL/L (98-107); CREATININE SERUM 1.22 MG/DL (0.60-1.30); GFR ESTIMATED > 60; GLUCOSE 94 MG/DL (70-105); POTASSIUM 3.9 MMOL/L (3.6-5.0); SODIUM 138 MMOL/L (135-145)
[2018-02-09] MEDS ORDERED: lisINopril 40 MG (PRINIVIL) TABLET PO SCH (09:00)
[2018-02-09] MEDS ORDERED: CLOPIDOGREL 75 MG (PLAVIX) TABLET PO SCH (09:00)
[2018-02-09] MEDS ORDERED: cloNIDine 0.1 MG (CATAPRES) TAB PO SCH (09:00)
[2018-02-09] MEDS ORDERED: meTOprolol TARTRATE 50 MG (LOPRESSOR) TAB PO SCH (09:00)
--- NOTE | 2018-02-09 09:16 | Consultation-Cardiology ---
HPI-Cardiology Cardiology Consultation Date of Consultation 02/09/18 Date of Admission Time Seen by Provider: 09:12 Indication: chest pain HPI 57 years old gentleman with history of coronary artery disease, hypertension, hyperlipidemia and chronic renal insufficiency. Started to have chest pain described it as dull in nature in the retrosternal area radiating to the left arm associated with diaphoresis and shortness of breath. Pain persisted until he came to the emergency room and took sublingual nitroglycerin which improved the pain somewhat. Continue to have the pain lingering for a while then it improved. No further episodes of chest pain. No palpitation. No syncope or near syncopal episodes. No claudications. Home Medications & Allergies Allergies: Coded Allergies: No Known Drug Allergies (Unverified , 01/16/16) Home Medication List Reviewed: Yes LDG-Izpqoz-Samzhr Hx Patient Social History Marital Status: Employed/Student: employed Alcohol Use: Regular Use Recreational Drug Use: No Smoking Status: Current Everyday Smoker Type Used: Cigarettes 2nd Hand Smoke Exposure: No Recent Foreign Travel: No Recent Infectious Disease Expo: No Recent Hopitalizations: No Immunizations Up To Date Tetanus Booster (TDap): Unknown Past Medical History past medical history as described below Family Medical History Significant Family History: Heart Disease, Hypertension Family History: Alcoholism 19 FATHER G8 BROTHER Diabetes mellitus 19 MOTHER G8 BROTHER FH: liver disease 19 FATHER G8 BROTHER G8 BROTHER Hypertension 19 MOTHER G8 SISTER Myocardial infarction 19 FATHER Review of Systems Constitutional: no symptoms reported, see HPI EENTM: see HPI, no symptoms reported Respiratory: no symptoms reported, see HPI; No cough; dyspnea on exertion; No hemoptysis, No orthopnea, No phlegm, No short of breath, No stridor, No wheezing , No other Cardiovascular: see HPI, chest pain; No edema, No Hx of Intervention, No palpitations, No syncope, No vascular heart diseas, No other Gastrointestinal: no symptoms reported, see HPI Genitourinary: no symptoms reported, see HPI Musculoskeletal: no symptoms reported, see HPI Skin: no symptoms reported, see HPI Psychiatric/Neurological: No Symptoms Reported, See HPI Reviewed Test Results Reviewed Test Results Lab Laboratory Tests Test 02/08/18 23:20 02/09/18 05:25 02/09/18 08:05 Range/Units White Blood Count 5.6 4.0 L 4.3-11.0 10^3/uL Red Blood Count 4.50 4.08 L 4.35-5.85 10^6/uL Hemoglobin 15.5 13.8 13.3-17.7 G/DL Hematocrit 42 39 L 40-54 % Mean Corpuscular Volume 93 95 80-99 FL Mean Corpuscular Hemoglobin 34 34 25-34 PG Mean Corpuscular Hemoglobin Concent 37 H 36 32-36 G/DL Red Cell Distribution Width 13.4 13.2 10.0-14.5 % Platelet Count 239 200 130-400 10^3/uL Mean Platelet Volume 9.2 9.5 7.4-10.4 FL Neutrophils (%) (Auto) 46 47 42-75 % Lymphocytes (%) (Auto) 42 40 12-44 % Monocytes (%) (Auto) 10 12 0-12 % Eosinophils (%) (Auto) 1 1 0-10 % Basophils (%) (Auto) 0 1 0-10 % Neutrophils # (Auto) 2.6 1.9 1.8-7.8 X 10^3 Lymphocytes # (Auto) 2.4 1.6 1.0-4.0 X 10^3 Monocytes # (Auto) 0.6 0.5 0.0-1.0 X 10^3 Eosinophils # (Auto) 0.1 0.0 0.0-0.3 10^3/uL Basophils # (Auto) 0.0 0.0 0.0-0.1 10^3/uL Prothrombin Time 12.1 L 12.2-14.7 SEC INR Comment 0.9 0.8-1.4 Activated Partial Thromboplast Time 26 24-35 SEC Sodium Level 140 138 135-145 MMOL/L Potassium Level 3.7 3.9 3.6-5.0 MMOL/L Chloride Level 106 109 H 98-107 MMOL/L Carbon Dioxide Level 19 L 21 21-32 MMOL/L Anion Gap 15 H 8 5-14 MMOL/L Blood Urea Nitrogen 13 13 7-18 MG/DL Creatinine 1.49 H 1.22 0.60-1.30 MG/DL Estimat Glomerular Filtration Rate 59 > 60 BUN/Creatinine Ratio 9 11 Glucose Level 93 94 70-105 MG/DL Calcium Level 9.0 8.4 L 8.5-10.1 MG/DL Corrected Calcium 8.9 8.5-10.1 MG/DL Magnesium Level 2.3 1.8-2.4 MG/DL Total Bilirubin 0.3 0.1-1.0 MG/DL Aspartate Amino Transf (AST/SGOT) 20 5-34 U/L Alanine Aminotransferase (ALT/SGPT) 15 0-55 U/L Alkaline Phosphatase 66 40-136 U/L Myoglobin 83.3 10.0-92.0 NG/ML Troponin I < 0.30 < 0.30 <0.30 NG/ML B-Type Natriuretic Peptide 244.4 H <100.0 PG/ML Total Protein 7.7 6.4-8.2 GM/DL Albumin 4.1 3.2-4.5 GM/DL Triglycerides Level 427 H <150 MG/DL Cholesterol Level 158 < 200 MG/DL LDL Cholesterol Direct 88 1-129 MG/DL VLDL Cholesterol 85 H 5-40 MG/DL HDL Cholesterol 29 L 40-60 MG/DL Physical Exam Vital Signs Vital Signs - First Documented Capillary Refill : Less Than 3 Seconds Height, Weight, BMI Height: 6'1.00" Weight: 231lbs. 0.0oz. 104.730738zs; 30.5 BMI Method:Stated General Appearance: No Apparent Distress, WD/WN Eyes: Bilateral Eye Normal Inspection, Bilateral Eye PERRL, Bilateral Eye EOMI HEENT: PERRL/EOMI, TMs Normal, Normal ENT Inspection, Pharynx Normal Neck: Full Range of Motion, Normal Inspection, Non Tender, Supple, Carotid Bruit Respiratory: Chest Non Tender, Lungs Clear, Normal Breath Sounds, No Accessory Muscle Use, No Respiratory Distress Cardiovascular: Regular Rate, Rhythm, No Edema, No Gallop, No JVD, No Murmur, Normal Peripheral Pulses Gastrointestinal: Normal Bowel Sounds, No Organomegaly, No Pulsatile Mass, Non Tender, Soft Back: Normal Inspection, No CVA Tenderness, No Vertebral Tenderness Extremity: Normal Capillary Refill, Normal Inspection, Normal Range of Motion, Non Tender, No Calf Tenderness, No Pedal Edema Neurologic/Psychiatric: Alert, Oriented x3, No Motor/Sensory Deficits, Normal Mood/Affect Skin: Normal Color, Warm/Dry Lymphatic: No Adenopathy A/P-Cardiology Admission Diagnosis Chest pain Coronary artery disease Hypertension Hyperlipidemia Chronic renal insufficiency Assessment/Plan Chest pain, nonspecific etiology. Resulting in angina. Abnormal EKG, slightly more ST depression in the anterior lateral leads compared to previous EKG. Planning to proceed with cardiac catheterization Coronary artery disease, history of cardiac catheterization in May [address] Montaño which reported 40-50 percent right coronary artery stenosis, mild disease otherwise. Planning to proceed with repeat cardiac catheterization Hypertension, restart medication monitor blood pressure Hyperlipidemia, hypertriglyceridemia, poorly controlled restart home medication. Chronic renal insufficiency, continue to monitor renal function Alcoholism, drinks about 2 drinks a day. Educated on avoiding alcohol products Clinical Quality Measures AMI/AHF: ASA po Prior to arrival: No DVT/VTE Risk/Contraindication: Risk Factor Score Per Nursin RFS Level Per Nursing on Admit: 2=Moderate NARCISA ADHIKARI MD Feb 09, 2018 09:16
--- NOTE | 2018-02-09 09:16 | Cardiac Procedure Note-CS/ASA ---
Pre-Procedure Note Pre-Op Procedure Note H&P Reviewed The H&P was reviewed, patient examined and no changes noted. Date H&P Reviewed: Feb 09, 2018 Time H&P Reviewed: 09:16 Conscious Sedation Pre-Proced Time 09:16 ASA Score 3 For ASA 3 and 4: Consider anesthesia and medical clearance. Also, for patients with a history of failed moderate sedation consider anesthesia. Airway Lungs Heart ASA score ASA 1: a normal healthy patient ASA 2: a patient with a mild systemic disease (mid diabetes, controlled hypertension, obesity x ASA 3: a patient with a severe systemic disease that limits activity (angina , COPD, prior Myocardial infarction) ASA 4: a patient with an incapacitating disease that is a constant threat to life (CHF, renal failure) ASA 5: a moribund patient not expected to survive 24 hrs. (ruptured aneurysm) ASA 6: a declared brain patient whose organs are being harvested. For emergent operations, add the letter E after the classification Mallampati Classification Grade 3 Sedation Plan Analgesia, Amnesia, Plan communicated to team members, Discussed options with patient/fam, Discussed risks with patient/fam The patient is an appropriate candidate to undergo the planned procedure, sedation, and anesthesia. The patient immediately re-assessed prior to indication. NARCISA ADHIKARI MD Feb 09, 2018 09:16
[2018-02-09] MEDS ORDERED: HEParin 1000 UNIT/ML (10ML VIAL) FOR BOLUS ONE (09:37)
[2018-02-09] MEDS ORDERED: HEParin (CATH LAB) 2,000 ML IV ONE (09:37)
[2018-02-09] MEDS ORDERED: MIDAZOLAM 5 MG/5 ML (VERSED) VIAL ONE (09:37)
[2018-02-09] MEDS ORDERED: LIDOCAINE 1% INJ 20 ML 20 ML VIAL ONE (09:37)
[2018-02-09] MEDS ORDERED: fentaNYL INJECTION 100 MCG/2 ML AMP ONE (09:37)
[2018-02-09] MEDS ORDERED: NS IV 1000 ML 1,000 ML IV SCH (10:27)
[2018-02-09] MEDS ORDERED: PANT40SU PO ×2 (10:29→14:17)
[2018-02-09] MEDS ORDERED: PATIENT MAY USE OWN MEDS, ALL PO SCH (10:30)
--- NOTE | 2018-02-09 10:30 | Discharge Inst-Post CATH ---
Discharge Inst-CATH/EP Post Cardiac Cath/EP D/C Inst CARDIAC CATH DISCHARGE INSTRUCTIONS *Hold Metformin for 48 hours post heart cath. ACTIVITY * Go Home directly and rest. * Limit activity of the leg (or wrist if it was used) for 7 days including aerobics, swimming, jogging, bicycling, etc. * Restrict stair-climbing for 7 days if possible, if not, climb up with your non -cath leg, then bring together on the same step. * Avoid lifting, pushing, pulling or excessive movement of the affected extremity for 7 days. * Customary sexual activity may be resumed after 2 days-use caution not to use a position that strains or causes pain to the affected extremity. * No driving for 24 hours. * NO SMOKING. * Avoid straining for bowel movements for 7 days. * Gentle walking on level ground is allowed. * Returning to work will depend on the type of procedure and the results. Your doctor will discuss this with you. CALL YOUR DOCTOR FOR ANY OF THE FOLLOWING: *If bleeding from the puncture site occurs- Apply gentle pressure to site with clean cloth and call your doctor or EMS. * If a knot or lump forms under the skin, increases in size, or causes pain. * If bruising appears to be worsening or moving further down your leg instead of disappearing. * Temperature above 101 F. CARE OF YOUR GROIN INCISION; * Bruising or purple discoloration of the skin near the puncture site is common. * You may shower only, no bathtub bathing for 5 days. Be careful to avoid slipping as your leg may feel stiff. * If a closure device was used on your femoral artery, please see the attached guide regarding care of the device and your leg. * Leave the dressing on, until removed by office staff. CARE OF YOUR WRIST INCISION; * Bruising or purple discoloration of the skin near the puncture site is common. * You may shower. * DO NOT submerge wrist. * Leave dressing on, until removed by office staff.. NARCISA ADHIKARI MD Feb 09, 2018 10:30
--- NOTE | 2018-02-09 10:33 | Cardiac Cath Report ---
Cardiac Cath Report Physician (s)/Camera Tuning Engineer (s) Physician NARCISA ADHIKARI MD Pre-Procedure Diagnosis Pre-Procedure Diagnosis: chest pain, coronary artery disease Post-Procedure Note Procedure Start Date: Feb 09, 2018 Name of Procedure: left heart catheterization Findings/Procedure Note PROCEDURE NOTE: 57 years old gentleman with known history of coronary artery disease, admitted with acute chest pain responsive to nitroglycerin, had EKG changes. Due to his extensive history I decided to proceed with cardiac catheterization After explaining the procedure to the patient, all pros and cons were explained , all questions were answered. The patient signed the consent and then he was placed on the cardiac catheterization laboratory. Groin was prepped SL fashion local anesthesia was used. Sheath placed in the Right femoral artery. Harriet right and left catheter were used to access the coronary system. Pigtail was used to access the left ventricular cavity. Left ventriculogram was done At the end of the procedure the sheath was removed. Closure device was used FINDINGS: Hemodynamics LV 109/28, end-diastolic pressure of 28 Aorta 114/67 mean of 74 ANATOMY: Left Main is free of obstructive disease Left Anterior Descending tortuous with mild to moderate disease at the midportion nonobstructive disease Left Circumflex has mild disease at the midportion Right Coronory Artery mild to moderate disease diffusely, moderate disease at the midportion, did not change compare to the study of May 2016 LV Gram was done showing normal left ventricular size and systolic function estimated ejection fraction 60 percent CONCLUSION: 1. Mild to moderate coronary artery disease nonobstructive disease 2. Normal left ventricular size and systolic function estimated ejection fraction 60 percent, elevated left ventricular end-diastolic pressure DISCUSSION AND RECOMMENDATION: patient was educated on compliance with medication, avoiding alcohol and tobaccoism, continue to maximize medical therapy Anesthesia Type: Conscious Sedation Estimated blood loss (mL): 10 ml Contrast Amount: 50 ml Total Radiation Dose: 657 mGy Post-Procedure Diagnosis Post-operative diagnosis: chest pain Coronary artery disease Hypertension Hyperlipidemia NARCISA ADHIKARI MD Feb 09, 2018 10:33
--- NOTE | 2018-02-09 13:20 | Short Stay Summary ---
History of Present Illness History of Present Illness Reason for visit/HPI This is a 57 yo male, patient of Patricia Dodge at [facility] who present to the ER with onset of chest pain prior to coming to the ED. Pt reports associated L arm pain and diaphoresis. CP resolved following nitro. Pt was admitted for observation and cardiology consultation. Patient has been seen by Dr. Markham who will be doing heart cath today. Date of Admission Feb 09, 2018 at 00:41 Date of Discharge Feb 09, 2018 Time Seen by Provider: 09:15 Attending Physician Abdias Samuel DO Admitting Physician Abdias Samuel DO Consult Shahrzad Allergies and Home Medications Allergies Coded Allergies: No Known Drug Allergies (Unverified , 01/16/16) Home Medications Amlodipine Besylate 10 Mg Tablet, 10 MG PO DAILY, (Reported) Aspirin 81 Mg Tab.chew, 81 MG PO DAILY, (Reported) Atorvastatin Calcium 40 Mg Tablet, 40 MG PO HS, (Reported) Carvedilol 25 Mg Tablet, 25 MG PO BID, (Reported) Chlorthalidone 25 Mg Tablet, 25 MG PO DAILY, (Reported) Clonidine HCl 0.1 Mg Tablet, 0.1 MG PO HS, (Reported) Hydralazine HCl 100 Mg Tablet, 100 MG PO BID, (Reported) Losartan Potassium 50 Mg Tablet, 50 MG PO DAILY, (Reported) Magnesium Oxide 200 Mg Tablet, 400 MG PO DAILY, (Reported) Pantoprazole Sodium 40 Mg Granpkt.dr, 40 MG PO DAILY Prescribed by: ABDIAS SAMUEL on 02/09/18 1417 Patient Home Medication List Home Medication List Reviewed: Yes Past Sfdoydy-Aktxjy-Vpfrpt Hx Patient Social History Marrital Status: Employed/Student: employed Alcohol Use: Regular Use Number of Drinks Today: FF Alcohol Beverage of Choice: Whiskey, Vodka Recreational Drug Use: No Smoking Status: Current Everyday Smoker Type Used: Cigarettes 2nd Hand Smoke Exposure: No Recent Foreign Travel: No Contact w/other who traveled: No Recent Hopitalizations: No Recent Infectious Disease Expo: No Immunizations Up To Date Tetanus Booster (TDap): Unknown Pediatric: No Seasonal Allergies Seasonal Allergies: Yes Surgeries No Respiratory Yes Cardiovascular Yes Coronary Artery Disease, High Cholesterol, Hypertension Neurological No Reproductive System Hx Reproductive Disorders: No Sexually Transmitted Disease: No HIV/AIDS: No Genitourinary Yes (KIDNEY DISEASE) Gastrointestinal Yes Gastroesophageal Reflux Musculoskeletal No Endocrine History of Endocrine Disorders: No HEENT History of HEENT Disorders: No Cancer No Psychosocial History of Psychiatric Problem: No Integumentary History of Skin or Integumenta: No Blood Transfusions History of Blood Disorders: No Family Medical History Significant Family History: Heart Disease, Hypertension Family Hx: Alcoholism 19 FATHER G8 BROTHER Diabetes mellitus 19 MOTHER G8 BROTHER FH: liver disease 19 FATHER G8 BROTHER G8 BROTHER Hypertension 19 MOTHER G8 SISTER Myocardial infarction 19 FATHER Review of Systems Constitutional: see HPI Physical Exam Vital Signs Vital Signs - First Documented Capillary Refill : Less Than 3 Seconds Height, Weight, BMI Height: 6'1.00" Weight: 231lbs. 0.0oz. [id number]; 30.5 BMI Method:Stated General Appearance: No Apparent Distress, WD/WN Respiratory: Normal Breath Sounds, No Accessory Muscle Use, No Respiratory Distress Cardiovascular: Regular Rate, Rhythm Neurologic/Psychiatric: Alert, Oriented x3, Normal Mood/Affect Clinical Quality Measures AMI/AHF: ASA po Prior to arrival: No DVT/VTE Risk/Contraindication: Risk Factor Score Per Nursin RFS Level Per Nursing on Admit: 2=Moderate Short Stay Diagnosis Discharge Diagnosis-Short Stay Admission Diagnosis: 1. Chest pain 2. CAD Final Discharge Diagnosis: 1. Chest pain 2. CAD 3. Hypertension 4. Hyperlipidemia 5. CKD - stage 3a Conclusion Labs Laboratory Tests 02/08/18 23:20: White Blood Count 5.6, Red Blood Count 4.50, Hemoglobin 15.5, Hematocrit 42, Mean Corpuscular Volume 93, Mean Corpuscular Hemoglobin 34, Mean Corpuscular Hemoglobin Concent 37H, Red Cell Distribution Width 13.4, Platelet Count 239, Mean Platelet Volume 9.2, Neutrophils (%) (Auto) 46, Lymphocytes (%) (Auto) 42, Monocytes (%) (Auto) 10, Eosinophils (%) (Auto) 1, Basophils (%) (Auto) 0, Neutrophils # (Auto) 2.6, Lymphocytes # (Auto) 2.4, Monocytes # (Auto) 0.6, Eosinophils # (Auto) 0.1, Basophils # (Auto) 0.0, Prothrombin Time 12.1L, INR Comment 0.9, Activated Partial Thromboplast Time 26, Sodium Level 140, Potassium Level 3.7, Chloride Level 106, Carbon Dioxide Level 19L, Anion Gap 15H , Blood Urea Nitrogen 13, Creatinine 1.49H, Estimat Glomerular Filtration Rate 59, BUN/Creatinine Ratio 9, Glucose Level 93, Calcium Level 9.0, Corrected Calcium 8.9, Magnesium Level 2.3, Total Bilirubin 0.3, Aspartate Amino Transf ( AST/SGOT) 20, Alanine Aminotransferase (ALT/SGPT) 15, Alkaline Phosphatase 66, Myoglobin 83.3, Troponin I < 0.30, B-Type Natriuretic Peptide 244.4H, Total Protein 7.7, Albumin 4.1 02/09/18 05:25: Troponin I < 0.30, Triglycerides Level 427H, Cholesterol Level 158, LDL Cholesterol Direct 88, VLDL Cholesterol 85H, HDL Cholesterol 29L 02/09/18 08:05: White Blood Count 4.0L, Red Blood Count 4.08L, Hemoglobin 13.8, Hematocrit 39L, Mean Corpuscular Volume 95, Mean Corpuscular Hemoglobin 34, Mean Corpuscular Hemoglobin Concent 36, Red Cell Distribution Width 13.2, Platelet Count 200, Mean Platelet Volume 9.5, Neutrophils (%) (Auto) 47, Lymphocytes (%) (Auto) 40, Monocytes (%) (Auto) 12, Eosinophils (%) (Auto) 1, Basophils (%) (Auto) 1, Neutrophils # (Auto) 1.9, Lymphocytes # (Auto) 1.6, Monocytes # (Auto) 0.5, Eosinophils # (Auto) 0.0, Basophils # (Auto) 0.0, Sodium Level 138, Potassium Level 3.9, Chloride Level 109H, Carbon Dioxide Level 21, Anion Gap 8, Blood Urea Nitrogen 13, Creatinine 1.22, Estimat Glomerular Filtration Rate > 60, BUN/ Creatinine Ratio 11, Glucose Level 94, Calcium Level 8.4L 02/09/18 11:13: Troponin I < 0.30 Conclusion/Plan 1. Chest pain - admitted for observation - negative tropnins negative - consulted by Dr. Markham - Heart cath 02/09/18 1. Mild to moderate coronary artery disease nonobstructive disease 2. Normal left ventricular size and systolic function estimated ejection fraction 60 percent, elevated left ventricular end-diastolic pressure 2. CAD 3. Hypertension 4. Hyperlipidemia 5. CKD Stage 3a Discharged per Dr. Markham Discharge [facility] Discharge Medications New Medications: Pantoprazole Sodium (Protonix) 40 Mg Granpkt.dr 40 MG PO DAILY, #30 TAB 2 Refills Continued Medications: Amlodipine Besylate (Norvasc) 10 Mg Tablet 10 MG PO DAILY, TAB Aspirin (Aspirin) 81 Mg Tab.chew 81 MG PO DAILY, TAB Atorvastatin Calcium (Lipitor) 40 Mg Tablet 40 MG PO HS, TAB Carvedilol (Carvedilol) 25 Mg Tablet 25 MG PO BID, TAB Chlorthalidone (Chlorthalidone) 25 Mg Tablet 25 MG PO DAILY, TAB Clonidine HCl (Clonidine HCl) 0.1 Mg Tablet 0.1 MG PO HS, TAB Hydralazine HCl (Hydralazine HCl) 100 Mg Tablet 100 MG PO BID, TAB Losartan Potassium (Cozaar) 50 Mg Tablet 50 MG PO DAILY, TAB Magnesium Oxide (Mag-Oxide) 200 Mg Tablet 400 MG PO DAILY, TAB Patient Instructions Goal/Follow Up Appt: Follow-up per Dr. Markham Continue same home medications. Activity & Diet Discharge Diet: Cardiac Diet Orders-Post D/C & Referrals Pneu Vac Indicated: Yes ABDIAS SAMUEL DO Feb 09, 2018 13:19
[2018-02-09] MEDS ORDERED: MAGN200T8 PO (14:07)
[2018-02-09] MEDS ORDERED: CARV25TA PO (14:07)
[2018-02-09] MEDS ORDERED: HYDR100T27 PO (14:07)
[2018-02-09] MEDS ORDERED: LOSA50TA2 PO (14:07)
--- NOTE | 2018-02-09 14:19 | Discharge Instructions ---
Discharge [facility] Discharge Medications New Medications: Pantoprazole Sodium (Protonix) 40 Mg Granpkt.dr 40 MG PO DAILY, #30 TAB 2 Refills Continued Medications: Amlodipine Besylate (Norvasc) 10 Mg Tablet 10 MG PO DAILY, TAB Aspirin (Aspirin) 81 Mg Tab.chew 81 MG PO DAILY, TAB Atorvastatin Calcium (Lipitor) 40 Mg Tablet 40 MG PO HS, TAB Carvedilol (Carvedilol) 25 Mg Tablet 25 MG PO BID, TAB Chlorthalidone (Chlorthalidone) 25 Mg Tablet 25 MG PO DAILY, TAB Clonidine HCl (Clonidine HCl) 0.1 Mg Tablet 0.1 MG PO HS, TAB Hydralazine HCl (Hydralazine HCl) 100 Mg Tablet 100 MG PO BID, TAB Losartan Potassium (Cozaar) 50 Mg Tablet 50 MG PO DAILY, TAB Magnesium Oxide (Mag-Oxide) 200 Mg Tablet 400 MG PO DAILY, TAB Patient Instructions Goal/Follow Up Appt: Follow-up per Dr. Markham Continue same home medications. Activity & Diet Discharge Diet: Cardiac Diet Orders-Post D/C & Referrals Pneu Vac Indicated: Yes ABDIAS SAMUEL DO Feb 09, 2018 14:19
[2018-02-09] MEDS ORDERED: ATORVASTATIN 80 MG (LIPITOR) TABLET PO SCH (21:00)
--- OUTSIDE RECORDS SUMMARY | 2018-02-11 06:34 | XMS REPORT | Continuity of Care Document ---
Author Author [facility] Organization [facility] Address Unknown Phone Unavailable Allergies Active Description Code Type Severity Reaction Onset Reported/Identified Relationship to Patient Clinical Status Yes No Known Drug Allergies [id number] Drug Allergy Unknown N/A 01/16/2016 Medications There is no data. Problems Date Dx Coded Attending Type Code Diagnosis Diagnosed By 09/20/2014 [facility] V[facility].09 NO DIAGNOSIS OR CONDITION ON AXIS I 01/17/2016 FRANSISCO MCDOWLEL MD Ot I16.1 HYPERTENSIVE EMERGENCY 01/17/2016 FRANSISCO [...] MD Ot I25.10 ATHSCL HEART DISEASE OF [place] CORONARY 05/24/2016 Rehan BAER MD Ot R07.89 OTHER CHEST PAIN 05/24/2016 Rehan BAER MD Ot R94.39 ABNORMAL RESULT OF OTHER CARDIOVASCULAR 05/24/2016 Rehan BAER MD Ot Z72.0 TOBACCO USE 05/24/2016 Rehan BAER MD Ot Z79.899 OTHER RESIDENTIAL (CURRENT) DRUG THERAPY 06/05/2016 Rehan BAER MD Ot I16.0 HYPERTENSIVE URGENCY 06/05/2016 Rehan BAER MD Ot I10 ESSENTIAL (PRIMARY) HYPERTENSION 06/05/2016 Rehan BAER MD Ot I25.10 ATHSCL HEART DISEASE OF [place] CORONARY 06/05/2016 Rehan BAER MD Ot R07.89 OTHER CHEST PAIN 06/05/2016 Rehan BAER MD Ot R94.39 ABNORMAL RESULT OF OTHER CARDIOVASCULAR 06/05/2016 Rehan BAER MD Ot Z72.0 TOBACCO USE 06/05/2016 Rehan BAER MD Ot 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 Type Provider Facility Loc./Unit Complaint [id number] 09/20/2014 16:27:00 09/20/2014 23:59:59 CLS Outpatient SPENCER CHAWLA [id number] 06/03/2017 13:40:00 06/03/2017 23:59:59 CLS Outpatient ROBERT PLASCENCIA APRN [facility] [id number] 12/05/2016 16:40:00 Document Registration [id number] 08/13/2017 15:39:00 08/13/2017 23:59:59 CLS Outpatient TATYANA BAER MD [facility] LAB CHRONIC KIDNEY DISEASE [id number] 05/14/2017 12:35:00 05/14/2017 23:59:59 CLS Outpatient TATYANA BAER MD [facility] LAB R80.8 [id number] 02/13/2017 15:39:00 02/13/2017 23:59:59 CLS Outpatient Rehan BAER MD [facility] LAB N18.9 [id number] 12/19/2016 09:07:00 12/19/2016 23:59:59 CLS Outpatient Rehan BAER MD [facility] RAD I10 HYPERTENSION [id number] 05/24/2016 08:06:00 05/24/2016 15:40:00 DIS Outpatient Rehan BAER MD [facility] CATH CHEST PAIN, ABN STRESS TEST [id number] 05/14/2016 11:08:00 05/14/2016 23:59:59 CLS Outpatient Rehan BAER MD [facility] CARD HYPERTENSIVE URGENCY [id number] 05/12/2016 03:12:00 05/12/2016 15:30:00 DIS Inpatient FRANSISCO MCDOWELL MD [facility] ICU CHEST PAIN,ELEVATED D- DIMER [id number] 01/16/2016 15:16:00 01/17/2016 15:50:00 DIS Inpatient FRANSISCO MCDOWELL MD [facility] ICU HYPERTENSION CRISIS [id number] 12/06/2016 08:40:00 Document Registration
== END 2018-02-09 15:10 | disposition home or self-care (01) ==
LOC: EDUNIT# 23:14 → ER 23:16 → ICU 23:17 → CATH 23:17 → UNDOADMOB 02-09 00:41 → ICU 02-09 00:41 → UNDODISOB 02-09 15:10 → CATH 02-09 15:10
PROVIDERS: ATTEND Family Medicine
DX: R07.9 Chest pain, unspecified (principal); I25.10 Atherosclerotic heart disease of native coronary artery without angina pectoris; I12.9 Hypertensive chronic kidney disease with stage 1 through stage 4 chronic kidney disease, or unspecified chronic kidney disease; N18.3 Chronic kidney disease, stage 3 (moderate); E78.5 Hyperlipidemia, unspecified; F17.210 Nicotine dependence, cigarettes, uncomplicated; F10.20 Alcohol dependence, uncomplicated; K21.9 Gastro-esophageal reflux disease without esophagitis; Z79.82 Long term (current) use of aspirin; Z79.899 Other long term (current) drug therapy
CPT/HCPCS: 36415; 71045; 80048; 80053; 80061; 83735; 83874; 83880; 84484; 85025; 85610; 85730; 93458; 96374

== ENCOUNTER 2018-10-20 03:32 | Emergency (ER) | payer SELFPAY ==
[~2018-10-20] VITALS: Ht 185.4 cm; Wt 104.8 kg
[~2018-10-20 03:32] MED LIST changes: -AMLO10TA6 PO; +AMLO10TA7 PO; +CARV25TA PO; +HYDR100T27 PO; +LOSA50TA2 PO; +MAGN200T8 PO; +PANT40SU PO
--- NOTE | 2018-10-20 03:32 | NUR ---
pt to ct per ems. 0336- [facility] decision to intubate for airway protection. 034- pt intubated with 8.0 oett 26cm at lips, + color change, bilateral breath sounds. 0355- 16fr og tube placed, 16fr barraza placed. 409-pt back to ct accompanied by sid sauceda rn, faith rt.
[2018-10-20] MEDS ORDERED: NS IV 1000 ML 1,000 ML ONE ×2 (03:37→04:46)
[2018-10-20] MEDS ORDERED: fentaNYL INJECTION 100 MCG/2 ML AMP INJ ONE (03:40)
[2018-10-20] MEDS ORDERED: MIDAZOLAM 5 MG/5 ML (VERSED) VIAL INJ ONE (03:40)
[2018-10-20] MEDS ORDERED: SUCCINYLCHOLINE INJ 100 MG/5 ML SYR INJ ONE (03:40)
[2018-10-20] MEDS ORDERED: ETOMIDATE IV SOLN 20 MG/10 ML VIAL IV ONE (03:40)
--- NOTE | 2018-10-20 03:46 | NUR ---
5mg versed, 100mg succinylcholine, 20mg etomidate, 100mcg fentanyl given prior to intubation.
[2018-10-20 03:52] LABS: BASOPHILS % (AUTO) 1 % (0-10); EOSINOPHILS # (AUTO) 0.1 10^3/uL (0.0-0.3); EOSINOPHILS % (AUTO) 2 % (0-10); HEMATOCRIT 40 % (40-54); HEMOGLOBIN 14.9 G/DL (13.3-17.7); LYMPHOCYTES # (AUTO) 1.6 X 10^3 (1.0-4.0); LYMPHOCYTES % (AUTO) 36 % (12-44); MEAN CORPUSCULAR HEMOGLOBIN 33 PG (25-34); MEAN CORPUSCULAR HGB CONC 37 G/DL (32-36); MEAN CORPUSCULAR VOLUME 90 FL (80-99); MEAN PLATELET VOLUME 9.4 FL (7.4-10.4); MONOCYTES # (AUTO) 0.5 X 10^3 (0.0-1.0); MONOCYTES % (AUTO) 12 % (0-12); NEUTROPHILS # (AUTO) 2.2 X 10^3 (1.8-7.8); NEUTROPHILS % (AUTO) 49 % (42-75); PLATELET COUNT 221 10^3/uL (130-400); RED CELL DISTRIBUTION WIDTH 13.8 % (10.0-14.5); WHITE BLOOD COUNT 4.4 10^3/uL (4.3-11.0)
[2018-10-20] MEDS ORDERED: PROPOFOL DRIP (ICU) 100 ML IV ONE ×2 (03:52→04:46)
[2018-10-20] MEDS ORDERED: niCARdipine IV FOR DRIP 50 MG KIT ONE (03:52)
[2018-10-20] MEDS ORDERED: NS (IVPB) 250 ML ONE (03:52)
[2018-10-20] MEDS ORDERED: niCARdipine IV 50 MG in NS (IVPB) 230 ML IV SCH (04:00)
--- NOTE | 2018-10-20 04:00 | NUR ---
5mg versed given sivp
[2018-10-20 04:02] LABS: BILIRUBIN,URINE NEGATIVE (NEGATIVE); CLARITY,URINE CLEAR; COLOR,URINE YELLOW; GLUCOSE, URINE (UA) NEGATIVE (NEGATIVE); KETONES,URINE NEGATIVE (NEGATIVE); LEUKOCYTE ESTERASE ,URINE NEGATIVE (NEGATIVE); NITRITE,URINE NEGATIVE (NEGATIVE); PH,URINE 7 (5-9); PROTEIN,URINE 3+ (NEGATIVE); UROBILINOGEN,URINE 1 MG/DL (NORMAL)
[2018-10-20 04:03] LABS: FIBRIN DEGRADATION PRODUCTS 0.72 UG/ML (0.00-0.49); INR 0.9 (0.8-1.4); PROTHROMBIN TIME PATIENT 12.6 SEC (12.2-14.7)
--- NOTE | 2018-10-20 04:04 | NUR ---
maurizio notified of need for transfer 0408- maurizio accepted transfer 0433- maurizio here.
[2018-10-20 04:10] LABS: ALANINE AMINOTRANSFERASE 13 U/L (0-55); ALKALINE PHOSPHATASE 80 U/L (40-136); BILIRUBIN,TOTAL 0.5 MG/DL (0.1-1.0); BUN/CREATININE RATIO 14; CALCIUM 9.6 MG/DL (8.5-10.1); CARBON DIOXIDE 24 MMOL/L (21-32); CHLORIDE 103 MMOL/L (98-107); CREATININE SERUM 1.38 MG/DL (0.60-1.30); GFR ESTIMATED > 60; GLUCOSE 137 MG/DL (70-105); POTASSIUM 3.6 MMOL/L (3.6-5.0); SODIUM 140 MMOL/L (135-145); TOTAL PROTEIN 7.4 GM/DL (6.4-8.2)
[2018-10-20 04:12] LABS: BACTERIA,URINE NEGATIVE /HPF
--- NOTE | 2018-10-20 04:22 | ED Neurological Problem ---
General Chief Complaint: Neuro-Stroke Like Symptoms Stated Complaint: ALTERED MENTAL STATE Nursing Triage Note: brought in by [facility] altered mental status, fall, left sided weakness, last known well time 10pm 10/19/18 Nursing Sepsis Screen: No Definite Risk Source: patient Exam Limitations: no limitations History of Present Illness Date Seen by Provider: Oct 20, 2018 Time Seen by Provider: 03:32 Initial Comments Here by EMS with report of altered mental status and left-sided weakness. Last and well time 10 PM last night. Apparently he and his fiance went to bed. At about 2:45 AM, he woke her up with difficulty with speech and drooling. She tried to get him to the car. She was unable to get into the car and he actually fell to the ground without reported injury. She did summon EMS who arrived and found him quite hypertensive with significant drooling requiring multiple suctioning and complete left-sided weakness. He is unable to speak. He does follow with gaze to both sides. Does have right arm movements and some left leg movement. Does have significant past history of hypertension and reported allergy to something that made his face swell that is suspected to be lisinopr il. Patient is gurgling with respirations and does not seem to be able to swallow well. Timing/Duration: 4-6 hours Severity: severe Associated Symptoms: confusion, weakness Allergies and Home Medications Allergies Coded Allergies: lisinopril (Verified Allergy, Unknown, 10/20/18) Home Medications Amlodipine Besylate 10 Mg Tablet, 10 MG PO DAILY, (Reported) Aspirin 81 Mg Tab.chew, 81 MG PO DAILY, (Reported) Atorvastatin Calcium 40 Mg Tablet, 40 MG PO HS, (Reported) Carvedilol 25 Mg Tablet, 25 MG PO BID, (Reported) Chlorthalidone 25 Mg Tablet, 25 MG PO DAILY, (Reported) Clonidine HCl 0.1 Mg Tablet, 0.1 MG PO HS, (Reported) Hydralazine HCl 100 Mg Tablet, 100 MG PO BID, (Reported) Losartan Potassium 50 Mg Tablet, 50 MG PO DAILY, (Reported) Magnesium Oxide 200 Mg Tablet, 400 MG PO DAILY, (Reported) Pantoprazole Sodium 40 Mg Gran, 40 MG PO DAILY Prescribed by: ABDIAS SAMUEL on 02/09/18 [id number] Patient Home Medication List Home Medication List Reviewed: Yes Review of Systems Review of Systems Constitutional: see HPI Unable to determine due to altered mental status and stroke symptoms. Patient unable to answer questions. Past Aepfvfj-Yjgbwv-Hjbnnh Hx Past Med/Social Hx: Reviewed Nursing Past Med/Soc Hx Patient Social History Alcohol Use: Occasionally Uses Number of Drinks Today: FF Alcohol Beverage of Choice: Whiskey, Vodka Recreational Drug Use: No Smoking Status: Current Everyday Smoker Type Used: Cigarettes 2nd Hand Smoke Exposure: No Recent Foreign Travel: No Contact w/Someone Who Travel: No Recent Infectious Disease Expo: No Recent Hopitalizations: No Immunizations Up To Date Tetanus Booster (TDap): Unknown PED Vaccines UTD: No Seasonal Allergies Seasonal Allergies: Yes Past Medical History Surgeries: No Respiratory: Yes Pneumonia Cardiac: Yes Coronary Artery Disease, High Cholesterol, Hypertension Neurological: No Reproductive Disorders: No Sexually Transmitted Disease: No HIV/AIDS: No Genitourinary: Yes (KIDNEY DISEASE) Gastrointestinal: Yes Gastroesophageal Reflux Musculoskeletal: No Endocrine: No HEENT: No Cancer: No Psychosocial: No Integumentary: No Blood Disorders: No Family Medical History Reviewed Nursing Family Hx Alcoholism 19 FATHER G8 BROTHER Diabetes mellitus 19 MOTHER G8 BROTHER FH: liver disease 19 FATHER G8 BROTHER G8 BROTHER Hypertension 19 MOTHER G8 SISTER Myocardial infarction 19 FATHER Heart Disease, Hypertension Physical Exam Vital Signs Vital Signs - First Documented 10/20/18 03:33 Temp 97.7 Pulse 67 Resp 23 B/P (MAP) 179/126 (143) Pulse Ox 97 O2 Delivery Room Air Capillary Refill : Less Than 3 Seconds Height, Weight, BMI Height: 6'1.00" Weight: 231lbs. 0.0oz. [id number]; 30.5 BMI Method:Stated General Appearance: WD/WN, moderate distress HEENT: PERRL/EOMI, other (facial droop that appears to be bilateral weakness. 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 Able to lift right arm and briefly lift right leg.) Neurologic/Psychiatric: alert, other (awake and able to follow movement of hand to all quadrants with his eyes. Able to close his eyes. Unable to smile.) Crainal Nerves: facial weakness Coordination/Gait: other (unable to determine finger to nose due to significant deficits) Motor/Sensory: weak motor strength RUE, weak motor strength LUE, weak motor strength LLE Skin: normal color, warm/dry Procedures/Interventions Date of ETT Placement: Oct 20, 2018 Time of ETT Placement: 03:46 Intubation Method: orotracheal Tube Size: 8 Medications: Etomidate, Fentanyl, Succinylcholine, Versed Positive End Tide CO2: Yes Breath Sounds after Intubation: bilateral-equal Intubation Complications: no complications Post Intubation Xray: Yes ET tube in good position Progress/Results/Core Measures Results/Orders Lab Results Laboratory Tests Test 10/20/18 03:44 10/20/18 03:55 Range/Units White Blood Count 4.4 4.3-11.0 10^3/uL Red Blood Count 4.49 4.35-5.85 10^6/uL Hemoglobin 14.9 13.3-17.7 G/DL Hematocrit 40 40-54 % Mean Corpuscular Volume 90 80-99 FL Mean Corpuscular Hemoglobin 33 25-34 PG Mean Corpuscular Hemoglobin Concent 37 H 32-36 G/DL Red Cell Distribution Width 13.8 10.0-14.5 % Platelet Count 221 130-400 10^3/uL Mean Platelet Volume 9.4 7.4-10.4 FL Neutrophils (%) (Auto) 49 42-75 % Lymphocytes (%) (Auto) 36 12-44 % Monocytes (%) (Auto) 12 0-12 % Eosinophils (%) (Auto) 2 0-10 % Basophils (%) (Auto) 1 0-10 % Neutrophils # (Auto) 2.2 1.8-7.8 X 10^3 Lymphocytes # (Auto) 1.6 1.0-4.0 X 10^3 Monocytes # (Auto) 0.5 0.0-1.0 X 10^3 Eosinophils # (Auto) 0.1 0.0-0.3 10^3/uL Basophils # (Auto) 0.0 0.0-0.1 10^3/uL Prothrombin Time 12.6 12.2-14.7 SEC INR Comment 0.9 0.8-1.4 Activated Partial Thromboplast Time 23 L 24-35 SEC D-Dimer 0.72 H 0.00-0.49 UG/ML Sodium Level 140 135-145 MMOL/L Potassium Level 3.6 3.6-5.0 MMOL/L Chloride Level 103 98-107 MMOL/L Carbon Dioxide Level 24 21-32 MMOL/L Anion Gap 13 5-14 MMOL/L Blood Urea Nitrogen 19 H 7-18 MG/DL Creatinine 1.38 H 0.60-1.30 MG/DL Estimat Glomerular Filtration Rate > 60 BUN/Creatinine Ratio 14 Glucose Level 137 H 70-105 MG/DL Calcium Level 9.6 8.5-10.1 MG/DL Corrected Calcium 9.6 8.5-10.1 MG/DL Total Bilirubin 0.5 0.1-1.0 MG/DL Aspartate Amino Transf (AST/SGOT) 19 5-34 U/L Alanine Aminotransferase (ALT/SGPT) 13 0-55 U/L Alkaline Phosphatase 80 40-136 U/L Troponin I 0.036 H <0.028 NG/ML Total Protein 7.4 6.4-8.2 GM/DL Albumin 4.0 3.2-4.5 GM/DL Salicylates Level < 5.0 L 5.0-20.0 MG/DL Acetaminophen Level < 10 L 10-30 UG/ML Serum Alcohol < 10 <10 MG/DL Urine Color YELLOW Urine Clarity CLEAR Urine pH 7 5-9 Urine Specific [place] 1.010 L 1.016-1.022 Urine Protein 3+ H NEGATIVE Urine Glucose (UA) NEGATIVE NEGATIVE Urine Ketones NEGATIVE NEGATIVE Urine Nitrite NEGATIVE NEGATIVE Urine Bilirubin NEGATIVE NEGATIVE Urine Urobilinogen 1 NORMAL MG/DL Urine Leukocyte Esterase NEGATIVE NEGATIVE Urine RBC (Auto) NEGATIVE NEGATIVE Urine RBC NONE /HPF Urine WBC NONE /HPF Urine Squamous Epithelial Cells 2-5 /HPF Urine Crystals NONE /LPF Urine Bacteria NEGATIVE /HPF Urine Casts NONE /LPF Urine Mucus NEGATIVE /LPF Urine Culture Indicated NO Urine Opiates Screen NEGATIVE NEGATIVE Urine Oxycodone Screen NEGATIVE NEGATIVE Urine Methadone Screen NEGATIVE NEGATIVE Urine Propoxyphene Screen NEGATIVE NEGATIVE Urine Barbiturates Screen NEGATIVE NEGATIVE Ur Tricyclic Antidepressants Screen NEGATIVE NEGATIVE Urine Phencyclidine Screen NEGATIVE NEGATIVE Urine Amphetamines Screen NEGATIVE NEGATIVE Urine Methamphetamines Screen NEGATIVE NEGATIVE Urine Benzodiazepines Screen NEGATIVE NEGATIVE Urine Cocaine Screen NEGATIVE NEGATIVE Urine Cannabinoids Screen POSITIVE H NEGATIVE My Orders Orders - TACHO TORRES MD Cbc With Automated Diff (10/20/18 03:38) Protime With Inr (10/20/18 03:38) Partial Thromboplastin Time (10/20/18 03:38) Comprehensive Metabolic Panel (10/20/18 03:38) Fibrin Degradation Products (10/20/18 03:38) Troponin I (10/20/18 03:38) Ua Culture If Indicated (10/20/18 03:38) Catheter(Urinary) Insert & Ass 03,15 (10/20/18 03:38) Ekg Tracing (10/20/18 03:38) Nothing By Mouth (10/20/18 Breakfast) Accucheck Stat ONCE (10/20/18 03:38) Ed Iv/Invasive Line Start (10/20/18 03:38) Ed Iv/Invasive Line Start (10/20/18 03:38) Vital Signs Stroke Patient Q15M (10/20/18 03:38) O2 (10/20/18 03:38) Intake & Output 06,14,22 (10/20/18 03:38) Monitor-Rhythm Ecg Trace Only (10/20/18 03:38) Dysphagia Screening Tool (10/20/18 03:38) Post Thrombolytic Adminstratio (10/20/18 03:38) Ns Iv 1000 Ml (Sodium Chloride 0.9%) (10/20/18 03:37) Ct Head Wo-R/O Stroke (10/20/18 ) Ns (Ivpb) (Sodium C... W/Nicardipine Iv (10/20/18 04:00) Ct Angio Head/Neck (10/20/18 03:57) Ct Head Perfusion W/ Contrast (10/20/18 03:57) Propofol Drip (Icu) (Diprivan Drip (Icu) (10/20/18 03:52) Nicardipine Iv For Drip (Cardene I.V. (O (10/20/18 03:52) Ns (Ivpb) (Sodium Chloride 0.9%) (10/20/18 03:52) Acetaminophen (10/20/18 04:11) Alcohol (10/20/18 04:11) Drug Screen Stat (Urine) (10/20/18 04:11) Salicylate (10/20/18 04:11) Chest 1 View, Ap/Pa Only (10/20/18 ) Propofol Drip (Icu) (Diprivan Drip (Icu) (10/20/18 04:46) Ns Iv 1000 Ml (Sodium Chloride 0.9%) (10/20/18 04:46) Medications Given in ED Current Medications Medications Dose Ordered Sig/[place] Route Start Time Stop Time Status Last Admin Dose Admin Nicardipine HCl 50 mg STK-MED ONCE .ROUTE 10/20/18 03:52 10/20/18 04:01 DC 10/20/18 04:06 50 MG Propofol 100 ml @ ud STK-MED ONCE IV 10/20/18 03:52 10/20/18 04:00 DC 10/20/18 04:05 30 MLS/HR Propofol 100 ml @ ud STK-MED ONCE IV 10/20/18 04:46 10/20/18 04:54 DC 10/20/18 04:46 30 MLS/HR Sodium Chloride 250 ml @ ud STK-MED ONCE .ROUTE 10/20/18 03:52 10/20/18 04:01 DC 10/20/18 04:06 5 MLS/HR Sodium Chloride 1,000 ml @ ud STK-MED ONCE .ROUTE 10/20/18 03:37 10/20/18 03:45 DC 10/20/18 03:40 125 MLS/HR Sodium Chloride 1,000 ml @ ud STK-MED ONCE .ROUTE 10/20/18 04:46 10/20/18 04:54 DC 10/20/18 04:46 100 MLS/HR Vital Signs/I&O 10/20/18 10/20/18 10/20/18 10/20/18 03:33 04:05 04:06 04:46 Temp 97.7 97.7 97.7 98.1 Pulse 67 67 67 71 Resp 23 23 23 18 B/P (MAP) 179/126 (143) 179/126 179/126 124/80 Pulse Ox 97 97 97 100 O2 Delivery Room Air Mechanical Ventilator 10/20/18 04:54 Temp 98.1 Pulse 71 Resp 18 B/P (MAP) 124/80 (95) Pulse Ox 100 O2 Delivery Mechanical Ventilator Blood Pressure Mean: 143 FSBG Bedside Testing Finger Stick Blood Glucose: 120 Blood Glucose Action Taken: per ems Progress Progress Note : Progress Note Seen and evaluated on arrival by EMS with rapid CT evaluation to rule out head bleed. Patient is quite hypertensive in the ranges of 215 over to 125. Stroke activation initiated. On return from CT, rapid stroke scale assessment done and noted to be 22. Unable to fully determine sensation given his inability to communicate. He did attempt to move indicated extremities when tapped. Patient not protecting his airway well and having very difficult time with secretions. 0346: Elected to intubate emergently for airway protection. Intubated successfully after RSI with 20 mg of etomidate and 100 mg of succinylcholine. This was followed by 5 mg of Versed and 100 g of fentanyl. Versed was repeated at 5 mg pending initiation a propofol drip. Cardene drip will also be initiated. CT head does not show bleed. I have significant concerns related to possible large vessel occlusion. Patient is outside of TPA window due to last known well time at 10 PM but may benefit from intra-arterial thrombectomy. I did contact [facility] and spoke with Dr. Norwood at [phone]. We will get CT angiogram of the head and neck as well as CT perfusion study. Helicopter has been placed on standby. 0420: Patient at CT for studies. Cardene drip stopped as his blood pressure declined with a propofol drip. We will manage blood pressure to level less than 180/115. Tim has been updated and she has called the patient's son to come to the hospital. Anticipate transfer to via flight service. 0500: Flight team here. Patient off Cardene and just on propofol with blood pressure less than 180/115. I have reviewed the patient history with to the flight crew and in route this orders given. 0515: I have updated [facility] and rediscussed the case with Dr. Norwood. I have reviewed CT perfusion study and CT angiogram study results with Dr. Norwood. Findings concerns discussed with the patient's family who understand the critical nature of current findings and patient's situation. Departed to via flight service. Patient remained stable but critical condition. Initial ECG Impression Date: Oct 20, 2018 Initial ECG Impression Time: 04:02 Initial ECG Rate: 69 Initial ECG Rhythm: Normal Sinus Comment Sinus rhythm with left ventricular hypertrophy. Normal but leftward axis. Abnormal T waves especially in the lateral leads. Similar to previous of 02/08/18. Interpreted by me. Diagnostic Imaging Diagonstic Imaging: CT Plain Films/CT/US/NM/MRI: head Comments Motion artifact limits evaluation. No evidence of acute intracranial abnormality allowing for artifact. Reviewed: Reviewed [place] Study, Reviewed by Me, Discussed w/Radiologist Diagonstic Imaging: Xray Plain Films/CT/US/NM/MRI: chest Comments Chest x-ray shows ET tube and orogastric tube in good position. Question infiltrate in the left upper lobe. Reviewed: Reviewed by Me Diagonstic Imaging: CT Plain Films/CT/US/NM/MRI: head, other Comments CT angiogram of the head and neck show likely occluded vertebrobasilar arteries in the head. There is reconstitution of flow to both boots and shoes supervisor likely from the posterior communicating arteries. There is no significant stenosis in the neck. Bilateral vertebral loses opacification intradermally suspicious for occlusion. This was discussed with the radiologist. Reviewed: Reviewed [place] Study, Reviewed by Me, Discussed w/Radiologist Diagonstic Imaging: CT Plain Films/CT/US/NM/MRI: head Comments CT perfusion study of the head shows perfusion abnormality in the nelly with 7 cc of penumbra. There is no definite core infarct. This was discussed with the radiologist. Reviewed: Reviewed [place] Study, Reviewed by Me, Discussed w/Radiologist Critical Care Note Critical Care Start Time: 03:32 Stop Time: 05:10 Total Time (minutes) 60 Departure Impression Primary Impression: Cerebrovascular accident due to cerebral artery occlusion Additional Impression: Hypertensive emergency Disposition: 02 XFER SHT-TRM HOSP Condition: Critical Transfer Time Spoke to Accepting Phy: 03:58 Transfer Time: 05:15 Transfer Facility: [facility], [place], Dr. Norwodo accepting Method of Transfer: Air Departure-Patient Inst. Referrals: ROBERT PLASCENCIA (Family) Primary Care Physician TACHO TORRES MD Oct 20, 2018 04:22
[2018-10-20 04:39] LABS: AMPHETAMINE SCREEN, URINE NEGATIVE (NEGATIVE); BARBITURATE SCREEN URINE NEGATIVE (NEGATIVE); BENZODIAZEPINES SCREEN URINE NEGATIVE (NEGATIVE); CANNABINOID SCREEN, URINE POSITIVE (NEGATIVE); COCAINE SCREEN URINE NEGATIVE (NEGATIVE); METHAMPHETAMINE SCREEN URINE S NEGATIVE (NEGATIVE); OPIATE SCREEN URINE NEGATIVE (NEGATIVE); TRICYCLIC ANTIDEPRESSANTS SCRE NEGATIVE (NEGATIVE)
--- NOTE | 2018-10-20 04:39 | NUR ---
pt back from ct.
[2018-10-20 04:40] LABS: METHADONE STAT NEGATIVE (NEGATIVE); OXYCODONE STAT NEGATIVE (NEGATIVE); PROPOXYPHENE STAT NEGATIVE (NEGATIVE)
[2018-10-20 04:42] LABS: SALICYLATE < 5.0 MG/DL (5.0-20.0)
[2018-10-20 04:50] LABS: ACETAMINOPHEN < 10 UG/ML (10-30)
[2018-10-20 04:54] VITALS: BP 124/80
--- NOTE | 2018-10-20 05:54 | Diagnostic Imaging Report ---
INDICATION: Respiratory distress. COMPARISON: 02/08/2018. FINDINGS: ET tube mid trachea. OG catheter in the stomach. There is cardiomegaly and vascular congestion with perihilar opacities in part atelectasis, however elements of edema or pneumonia superimposed could not be excluded. IMPRESSION: Support apparatus in good alignment. Some perihilar opacity congestion versus pneumonia. No pneumothorax. Dictated by: Dictated on workstation # [id number]
--- NOTE | 2018-10-20 06:09 | Diagnostic Imaging Report ---
PROCEDURE: CT head wo r/o stroke. TECHNIQUE: Multiple contiguous axial images were obtained through the brain without the use of intravenous contrast. Auto Exposure Controls were utilized during the CT exam to meet ALARA standards for radiation dose reduction. INDICATION: "Stroke". FINDINGS: Motion degrades exam sensitivity. No convincing evidence for focal edema. No sulcal effacement. No hemorrhage. No mass or mass effect revealed. IMPRESSION: Limited by motion. No appreciable edema, hemorrhage, hydrocephalus or acute abnormalities. Dictated by: Dictated on workstation # [id number]
--- NOTE | 2018-10-20 06:36 | Diagnostic Imaging Report ---
INDICATION: Stroke. Postcontrast enhanced protocol CT perfusion performed. FINDINGS: Study quality appears good. Cerebral blood flow and blood volume showed no evidence for an obvious cord infarct. Perfusion abnormality in the brainstem at the level of the nelly is consistent with a penumbra of 7 mL volume greater than 6 seconds delayed. The majority of this showing greater than 10 seconds delayed. No convincing evidence for penumbra at the cerebellar hemispheres or occipital lobes. IMPRESSION: 1. Perfusion abnormality in the brainstem at the nelly 7 mL volume penumbra but no definite cord infarct. 2. I agree with the preliminary report. Dictated by: Dictated on workstation # [id number]
--- NOTE | 2018-10-20 06:45 | Diagnostic Imaging Report ---
PROCEDURE: CT angiography of the head and CT angiography of the neck with and without contrast. TECHNIQUE: Contiguous noncontrast images were obtained from the skull base through the vertex. After intravenous contrast administration, helical CT angiography of the neck was performed. Source data was reformatted into 3D MIP projections. Delayed post contrast acquisition was also obtained. Auto Exposure Controls were utilized during the CT exam to meet ALARA standards for radiation dose reduction. INDICATION: "Stroke-like symptoms." FINDINGS: CT angio neck: Artifact owing to body habitus limits evaluation of the takeoff of the great vessels. Aortic arch grossly unremarkable. The branching pattern of the great vessels appeared unremarkable. There is an ET tube in the midthoracic trachea. There is dependent upper lobe partial atelectasis. Takeoff of the vertebral arteries difficult to define; however, throughout the neck, they are shown to be patent and codominant. No intimal irregularity. The bilateral common carotids, the carotid bulbs, bifurcations, the major external carotid branches and the cervical internal carotids appeared patent bilaterally. CT angio head: The intradural segment of the right vertebral artery occludes after the takeoff of the PICA. The basilar is occluded throughout its length. There is flow in the bilateral PROCESS SUPERVISOR segments via bilateral PCOMs. Intracranial ICAs patent. The bilateral middle cerebral arterial segments and primary branches patent. The anterior cerebral arteries are patent. IMPRESSION: 1. CT angio neck: No anterior or posterior circulation occlusion, dissection or hemodynamically significant degree of stenosis. 2. CT angio head: Distal right intradural vertebral occlusion, small-caliber distal intradural left vertebral with occlusion of the basilar and PROCESS SUPERVISOR flow bilaterally via the patent PCOMs. Anterior circulation unremarkable. I agree with the preliminary report. Dictated by: Dictated on workstation # [id number]
== END 2018-10-20 05:00 | disposition short-term general hospital (02) ==
LOC: EDUNIT# 03:37 → ER 03:39
DX: I63.533 Cerebral infarction due to unspecified occlusion or stenosis of bilateral posterior cerebral arteries (principal); I16.1 Hypertensive emergency; I25.10 Atherosclerotic heart disease of native coronary artery without angina pectoris; I10 Essential (primary) hypertension; E78.00 Pure hypercholesterolemia, unspecified; K21.9 Gastro-esophageal reflux disease without esophagitis; F17.210 Nicotine dependence, cigarettes, uncomplicated; Z88.8 Allergy status to other drugs, medicaments and biological substances; Z79.82 Long term (current) use of aspirin; Z82.49 Family history of ischemic heart disease and other diseases of the circulatory system
CPT/HCPCS: 0042T; 31500; 36415; 51702; 70450; 70496; 70498; 71045; 80053; 80306; 80320; 80329; 81000; 84484; 85025; 85379; 85610; 85730; 93005; 93041; 99291; 99292